=== PATIENT | female | born 1970 | race African-American/Black ===

== ENCOUNTER 2017-08-28 05:34 | Emergency (ER) | payer MEDICAID ==
[2014-08-11 05:34] VITALS: BMI 35.0
[~2017-08-28 05:34] MED LIST: BAYER CHEWABLE81 MG PO; COREG6.25 MG PO; GLUCOPHAGE500 MG PO; LIPITOR10 MG PO; LISINOPRIL10 MG PO; ZPAK PO
[2017-08-28 06:40] LABS: BASOPHILS 0.2 % (0-2); EOSINOPHILS 1.1 % (0-7); HEMATOCRIT 37.4 % (36.0-48.0); HEMOGLOBIN 12.5 g/dL (12-16); IMMATURE GRANULOCYTES 0.4 % (0-5); LYMPHOCYTES 34.3 % (15-50); MCH 29.5 pg (26.0-34.0); MCHC 33.4 g/dL (31.0-37.0); MCV 88.2 fL (80.0-100.0); MEAN PLATELET VOLUME 10.3 fL (7.4-10.4); MONOCYTES 6.5 % (2-11); NEUTROPHILS 57.5 % (40-80); PLATELET COUNT 239 10x3/uL (130-400); RBC 4.24 10x6/uL (4.00-5.40); RDW 12.9 % (11.5-14.5); WBC 4.8 10x3/uL (4.8-10.8)
[2017-08-28 07:00] LABS: ALBUMIN 3.8 g/dL (3.4-5.0); ALKALINE PHOSPHATASE 69 U/L (46-116); ALT (SGPT) 28 U/L (10-68); BILIRUBIN - TOTAL 0.53 mg/dL (0.2-1.3); CALC OSMOLALITY 281 mosm/kg (275-300); CALCIUM 9.6 mg/dL (8.5-10.1); CARBON DIOXIDE 25.5 mmol/L (21.0-32.0); CHLORIDE - SERUM 100 mmol/L (98-107); CREATININE - SERUM 0.9 mg/dL (0.6-1.3); GLUCOSE 193 mg/dL (74-106); PROTEIN - SERUM 8.5 g/dL (6.4-8.2); SODIUM 138 mmol/L (136-145); UREA NITROGEN 15 mg/dL (7-18); eGFR NON AFRICAN AMERICAN 71 mL/min (90-120)
[2017-08-28 07:10] LABS: CKMB 1.3 U/L (0.0-3.6); CREATINE KINASE 141 UL (21-215); PRO BNP 876 pg/mL (0-125)
[2017-08-28 07:11] LABS: TROPONIN-I < 0.017 ng/mL (0.000-0.060)
== END 2017-08-28 07:37 | disposition home or self-care (01) ==
LOC: D.ER 05:34
PROVIDERS: Family Medicine
DX: S29.012A Strain of muscle and tendon of back wall of thorax, initial encounter (principal); X58.XXXA Exposure to other specified factors, initial encounter; Y93.89 Activity, other specified; Y92.019 Unspecified place in single-family (private) house as the place of occurrence of the external cause; E87.6 Hypokalemia; R73.9 Hyperglycemia, unspecified; I10 Essential (primary) hypertension

== ENCOUNTER 2018-05-13 22:24 | Inpatient (IN) | payer BC ==
[~2018-05-13] VITALS: Ht 165.1 cm; Wt 95.0 kg
--- NOTE | ~2018-05-13 | OP ---
PATIENT NAME: CESAR ST MEDICAL RECORD: [id number] :70 [facility]ATION[facility] ADMISSION DATE:05/14/18 SURGEON: ALDEN MOBLEY MD DATE OF OPERATION: 05/14/2018 PROCEDURE: Left heart cath, LV gram, coronary angiogram, PTCA of the LAD, intra-arterial stenting of the LAD times 2. PROCEDURE IN DETAIL: The patient was brought to cardiac catheterization lab in stable condition. Both groins were sterilely prepped and draped. The patient had a 6-Bulgarian sheath placed in right common femoral artery using modified Seldinger technique. We then were able to selectively intubate the left coronary artery, the right coronary artery, and the left ventricular cavity. We were then able to get distal wire position to the LAD. We were then able to guide a 2.0 x 25 balloon into the mid LAD and pulled back into the proximal LAD, perform angioplasty times 2. Given continued residual stenosis greater than 50%, we then proceeded with a 2.25 x 30 stent and a 2.5 x 26 stent both drug-eluting into the mid going back into the proximal LAD, taken to a maximum rated burst pressures. We were then able to take a noncompliant 2.5 in to the mid LAD and taken to 17 atmospheres and show relief of the residual stenosis. FINDINGS: 1. Left main has a distal 50% stenosis. 2. The circumflex is a diffusely diseased, has an ostial 40% stenosis and at the takeoff of the terminal obtuse marginal branch, there is a 60% stenosis. The LAD itself is shown to have dissected portion in the proximal section associated with calcification and mild thrombus with 100% occlusion also of a diagonal branch in that vessel. There was, however, TIFF 3 flow in the LAD itself. 3. The RCA is a large, dominant vessel. The posterior descending artery has a mid 80% stenosis. ANGIOPLASTY: The patient underwent balloon angioplasty reducing the original 95% stenosis into a 50% residual stenosis status post stenting and post-stenting angioplasty that was reduced to 0% residual stenosis. However, there was continued occlusion of the diagonal vessel; however, given that the LAD had excellent results, the procedure was terminated successfully. HEMODYNAMICS: Left ventricular ejection fraction was shown to be a 70+%. End-diastolic pressure was normal at 15 mmHg. There was no significant mitral regurgitation. No gradient across the aortic valve. IMPRESSION: Severe 2-vessel coronary artery disease in the LAD distribution and moderate disease in both the posterolateral, posterior descending and the terminal obtuse marginal branch. The patient had preserved left ventricular systolic function despite coming in with fulminant congestive heart failure and her end-diastolic pressure at this point in time, is actually normal. RECOMMENDATION: The patient needs to continue with dual antiplatelet therapy in the form of aspirin and Brilinta. We will continue aggressive secondary risk factor modification, hypertensive control. We will follow her in the intensive care unit to try to extubate the patient as soon as she is medically stable for extubation. We will also check an echocardiogram in the morning. TRANSINT:[id number] Voice Confirmation ID: [id number] DOCUMENT ID: [id number] OPERATIVE REPORT [id number] CESAR ST,ALDEN Cooper MD at 1348 CC: [id number] DICTATION DATE: 05/14/18126 ENAMEL APPLIER: 05/14/18 0155 DIS IN 05/16/18 [place] [id number] [place] [address]
--- NOTE | ~2018-05-13 | EC ---
PATIENT:CESAR ST DATE OF SERVICE: 05/14/18 SEX: F MEDICAL RECORD: [id number] DATE OF : 70 LOCATION:[place] [address] AGE OF PATIENT: 48 ADMISSION DATE: 05/14/18 REFERRING PHYSICIAN: INTERPRETING PHYSICIAN: ALDEN MOBLEY MD ECHOCARDIOGRAM REPORT ECHO CHARGES 4 ECHO COMPLETE Date: 05/14/18 CLINICAL DIAGNOSIS: STEMI ECHOCARDIOGRAPHIC MEASUREMENTS (adult normal given) AC root (d.<3.7cm) 3.0 cm LV Septum d (<1.2 cm> 1.7 cm Valve Excursion 1.4 cm LV Septum (systole) 1.8 cm Left Atria (s.<4.0cm> 3.7 cm LVPW d(<1.2cm) 1.1 cm RV (d.<2.3cm) 2.2 cm LVPW (sytole) 1.1 cm LV diastole(<5.6CM) 4.9 cm MV E-F(>70mm/sec) cm LV systole 4.0 cm LVOT Diameter 1.6 cm MV exc.(>10mm) cm Est.ejection fraction (50-75%) % DOPPLER: LVIT cm/sec A 71 cm/sec E 47 cm/sec LA cm/sec RVSP 20.6 mmHg LVOT 89 cm/sec AOP1/2T m/s Asc. Ao 125 cm/sec RVOT 67 cm/sec RA cm/sec PA 94 cm/sec AV Gradient Peak 6.2 mmHg AV Mean 4.1 mmHg AV Area 1.7 cm MV Gradient Peak 2.8 mmHg MV Mean 1.5 mmHg MV Area cm COMMENTS: Pain Management Nurse Practitioner: Efraín CARPIO Jewelry Sales Associate: Latia Mobley TAPE# PACS Pericardial Effusion N DATE OF SERVICE: PROCEDURE: Transthoracic echocardiogram. FINDINGS: 1. Left ventricle was difficult to visualize. There appeared to be anterior to anterior lateral hypokinesis and regional wall motion abnormalities. The overall ejection fraction is 45%. The inflow characteristics are consistent with diastolic dysfunction or elevated left ventricular end-diastolic pressures. 2. The left atrium is normal. ECHOCARDIOGRAM REPORT [id number] CESAR ST 3. The aortic valve is normal. 4. The mitral valve is normal. 5. The tricuspid valve is normal. The RVSP is 20. 6. The right ventricle is normal. 7. The right atrium is normal. 8. The pulmonic valve is normal. CONCLUSIONS: The patient has evidence of hypertensive heart disease that is moderate in nature and diastolic dysfunction with regional wall motion abnormalities, ejection fraction of 45%. TRANSINT:[id number] Voice Confirmation ID: [id number] DOCUMENT ID: [id number] ALDEN MOBLEY MD at 1348 CC: [id number] DICTATION DATE: 05/14/181912 NET DEVELOPER PROGRAMMER: 05/15/18 0225 DIS IN 05/16/18 [facility] [address] [place] [address]
--- NOTE | ~2018-05-13 | HEMODYNAMI ---
PATIENT:ANGELES DAVID MEDICAL RECORD: [id number] : 70 LOCATION:[facility] ADMISSION DATE: 05/14/18 Generatedon:05/14/20181:28 Patient name: ANGELES ST Patient #: [id number] SSN: : 1970 Date of study: 05/14/2018 Page: Of Hemodynamic Procedure Report Patient Data Patient Demographics First Name: ANGELES Gender: Female Last Name: KALPANA ST : 1970 Middle Initial: MELLY Age: 48 year(s) Patient #: [id number] Race: Black Additional ID: [id number] Contact details Address: [address] [place] [address] State: [place] City: [facility] Zip code: [address] Admission Admission Data Admission Date: 05/14/2018 Admission Time: 1:12 Room #: D.CV03 Procedure Procedure Types Cath Procedure Diagnostic Procedure LHC LHC w/Coronaries PCI Procedure AMI/SVG/OIL RECOVERY UNIT OPERATOR PTCA or Stent AMI-BMS/TESFAYE Initial Procedure Description Procedure Date Procedure Date: 05/14/2018 Procedure Start Time: 0:52 Procedure End Time: 1:28 Procedure Staff Name Function Giovany Sanders MD Performing Physician Lorri Guthrie RT Monitor Francesco Piña RN Nurse Gely Granado RT Scrub Procedure Data Cath Procedure Fluoroscopy Diagnostic fluoroscopy Total fluoroscopy Time: 5.6 time: 5.6 min min Diagnostic fluoroscopy Total fluoroscopy dose: dose: 1426 mGy 1426 mGy Contrast Material Contrast Material Type Amount (ml) Isovue 300 130 Entry Location Entry Primary Successful Side Size Upsize Upsize Entry Closure Succes sful Closure Location (Fr) 1 (Fr) 2 (Fr) Remarks Device Remarks Femoral Right 6 Fr Sheath artery Short sutured in place Estimated blood loss: 10 ml Diagnostic catheters Device Type Used For End Catheter Placement MULTIPACK JL 4.0 5Fr Left Coronary catheter Angiography MULTIPACK 3DRC 5Fr Right Coronary catheter Angiography MULTIPACK Pigtail 5 Fr LV Angiography catheter Procedure Complications No complications Procedure Medications Medication Administration Route Dosage 0.9% NaCl I.V. 10 ml/hr Oxygen 15 l/min Heparin Flush Bag added to field 2 bags (1000units/500ml NS) Lidocaine 2% S.C. 20 Versed I.V. 1 mg Heparin Bolus I.V. 3000 units Diprivan 1% 62.5 mcg/kg/min (Propofol) Heparin Drip 1100 units/hr (81800iwfrr/250 D5W) Versed I.V. 1 mg Heparin Drip 1100 units/hr (16868kridi/250 D5W) Heparin Drip I.V. drip 900 units/hr (12777yjgym/250 D5W) Hemodynamics Rest Heart Rate: 93 (bpm) Pressure Samples Time Site Value (mmHg) Purpose Heart Use Rate(bpm) 1:01 LV 107/-5,10 EDP 90 Gradients Valve Time Site Site Mean SEP/DFP Peak To Heart Use 1 2 (mmHg) (sec/min) Peak Rate (mmHg) (bpm) Aortic 1:01 LV AO 91 Snapshots Pre Cath Intra NCS Post Cath Vital Signs Time Heart Resp SPO2 etCO2 NIBP (mmHg) Rhythm Pain Sedation Rate (ipm) (%) (mmHg) Status Level (bpm) 0:50:28 94 17 100 0 120/82(105) NSR 0 (11) 5(A) , No pain 0:55:08 93 17 100 0 119/79(95) NSR 0 (11) 5(A) , No pain 0:59:47 90 16 100 0 117/72(90) NSR 0 (11) 5(A) , No pain 1:04:25 90 16 100 0 115/77(92) NSR 0 (11) 5(A) , No pain 1:09:04 89 16 100 0 106/66(84) NSR 0 (11) 5(A) , No pain 1:13:40 88 16 100 0 106/73(85) NSR 0 (11) 5(A) , No pain 1:18:17 88 16 100 0 110/79(92) NSR 0 (11) 5(A) , No pain 1:22:53 87 16 100 0 123/84(105) NSR 0 (11) 5(A) , No pain 1:27:31 87 16 100 0 132/93(111) NSR 0 (11) 5(A) , No pain Medications Time Medication Route Dose Verified Delivered Reason Notes Effectiveness by by 0:49:45 0.9% NaCl I.V. 10 ml/hr Giovany Francesco Per phys roslyn Piña MD, RN 0:50:30 Oxygen oett 15 l/min Giovany Francesco Per phys roslyn Piña MD, RN 0:50:44 Heparin Flush added to 2 bags Francesco Francesco used for Bag field Lorigan Ayana procedure (1000units/500ml RN RN NS) 0:50:56 Lidocaine 2% S.C. 20ml vial Francesco Francesco for loca l Lorigan Lormaria de jesus anesthetic RN RN 0:51:27 Diprivan 1% I.V.infusing 62.5mcg/kg/min Francesco Francesco for zohreh tion (Propofol) upon arrival Ayana Piña RN RN 0:52:00 Heparin Drip I.V. drip 1,100 units/hr Francesco Francesco for (70232ioynt/250 infusing Lorigan Lorigan anticoagulation D5W) upon arrival RN RN 0:52:39 Versed I.V. 1 mg Francesco Francesco for zohreh tion Ayana Piña RN RN 1:04:21 Heparin Drip stopped 1,100 units/hr Francesco Francesco for (23955vrhal/250 Lorigan Lorigan anticoagulation D5W) RN RN 1:04:37 Heparin Bolus I.V. 3,000 units Francesco Francesco for Lorigan Lorigan anticoagulation RN RN 1:14:42 Versed I.V. 1 mg Francesco Francesco for zohreh tion Ayana Piña RN RN 1:20:36 Heparin Drip I.V. drip 900units/hr Francesco Francesco for (30495kecmn/250 Lorigan Lorigan anticoagulation D5W) RN promos executive producer Log Time Note 0:31:13 Time tracking: Call back (After hours or weekends) 0:31:17 Plan of Care:Hemodynamics will remain stable., Cardiac rhythm will remain stable., Comfort level will be maintained., Respiratory function will remain adequate., Patient/ family verbilizes understanding of procedure., Procedure tolerated without complication., Recovers from procedure without complications.. 0:31:26 Francesco Piña RN sent for patient. Start room use. 0:49:36 Vital chart was started 0:49:40 Patient received from ED to CCL 1 Alert and oriented. Tansferred to table in Supine position. 0:49:45 0.9% NaCl 10 ml/hr I.V. was administered by Francesco Piña RN; Per physician; 0:50:26 Correct patient and procedure confirmed by team. 0:50:30 Oxygen 15 l/min oett was administered by Francesco Piña RN; Per physician; 0:50:44 Heparin Flush Bag (1000units/500ml NS) 2 bags added to field was administered by Francesco Piña RN; used for procedure; 0:50:56 Lidocaine 2% 20ml vial S.C. was administered by Francesco Piña RN; for local anesthetic; 0:51:27 Diprivan 1% (Propofol) 62.5mcg/kg/min I.V.infusing upon arrival was administered by Francesco Piña RN; for sedation; 0:51:30 Baseline sample Acquired. 0:51:48 PATIENT ON VENT 0:51:51 Final Timeout: patient, procedure, and site verified with staff and physician. All members of the team are in agreement. 0:51:53 Right groin site verified by team. 0:51:55 Physical assessment completed. ASA score P 4 - A patient with severe systemic disease that is a constant threat to life as per Giovany Sanders MD. 0:51:59 Sedation plan: IV Moderate Sedation Medication:Versed, Fentanyl 0:52:00 Heparin Drip (26514ztooz/250 D5W) 1,100 units/hr I.V. drip infusing upon arrival was administered by Francesco Piña RN; for anticoagulation; 0:52:07 Procedure started. 0:52:07 Full Disclosure recording started 0:52:11 Local anesthetic to right femoral artery with Lidocaine 2% by Giovany Sanders MD.INITIAL ACCESS ONLY 0:52:39 Versed 1 mg I.V. was administered by Francesco Piña RN; for sedation; 0:54:12 A 6 Fr Short sheath was inserted into the Right Femoral artery 0:54:40 Use device set Femoral Dx 0:54:41 ACIST Syringe (81090) opened to sterile field. 0:54:41 Bag Decanter (2002S) opened to sterile field. 0:54:42 Medline Cath Pack ([id number]) opened to sterile field. 0:54:42 DIAGNOSTIC WIRE .035 260cm J wire (938131) opened to sterile field. 0:54:43 ACIST Hand Control (23990) opened to sterile field. 0:54:44 ACIST Manifold (24540) opened to sterile field. 0:54:45 DIAGNOSTIC Multipack 5Fr catheter set (KP1759) opened to sterile field. 0:54:46 Tegaderm 4 x 4 (1626W) opened to sterile field. 0:54:47 SHEATH Prelude 5Fr 0.035 (NNI-1Z-96-035) opened to sterile field. 0:55:12 SHEATH 6Fr Prelude Radial ([id number]) opened to sterile field. 0:55:29 A MULTIPACK JL 4.0 5Fr catheter was advanced over the wire and used for Left Coronary Angiography. 0:56:33 Catheter removed. 0:56:47 A MULTIPACK 3DRC 5Fr catheter was advanced over the wire and used for Right Coronary Angiography. 1:00:38 Catheter removed. 1:00:42 A MULTIPACK Pigtail 5 Fr catheter was advanced over the wire and used for LV Angiography. 1:01:44 Catheter removed. 1:02:00 Use device set NORRED PCI 1:02:03 INFLATOR Merit BasixCompak (KB6334) opened to sterile field. 1:02:04 COPILOT Valve Control (2886792) opened to sterile field. 1:02:05 BMW 190cm [place] 2 J wire (6759861I) opened to sterile field. 1:02:08 GUIDE 6FR XBLAD 3.5 catheter (75373583) opened to sterile field. 1:04:05 MICROPUNCTURE 4FR Cook (L46636) opened to sterile field. 1:04:19 6 Fr XBLAD 3.5 guide catheter was inserted over the wire 1:04:21 Heparin Drip (36549elzxn/250 D5W) 1,100 units/hr stopped was administered by Francesco Piña RN; for anticoagulation; 1:04:37 Heparin Bolus 3,000 units I.V. was administered by Francesco Piña RN; for anticoagulation; 1:04:53 BMW wire advanced. 1:07:39 Inflate balloon Inflation number: 1 A EUPHORA 2.0 x 25 Balloon ([id number]) was prepped and advanced across the Prox LAD, then inflated to 12 RIGOBERTO for 0:17 (min:sec). 1:07:52 Inflation number: 2 The EUPHORA 2.0 x 25 Balloon ([id number]) was reinflated across the Prox LAD, to 12 RIGOBERTO for 0:09 (min:sec). 1:08:04 Balloon removed over the wire. 1:10:29 Place stent Inflation Number: 3 A OPAL RX 2.25 x 30 stent ([id number]) was prepped and advanced across the Prox LAD. The stent was deployed at 14 RIGOBERTO for 0:18 (min:sec). 1:10:35 Stent catheter was removed intact over wire. 1:14:14 Place stent Inflation Number: 4 A OPAL RX 2.5 x 26 stent ([id number]) was prepped and advanced across the Prox LAD. The stent was deployed at 14 RIGOBERTO for 0:22 (min:sec). 1:14:42 Versed 1 mg I.V. was administered by Francesco Piña RN; for sedation; 1:17:47 Inflate balloon Inflation number: 5 A NC EUPHORA 2.5 x 12 balloon ([id number]) was prepped and advanced across the Prox LAD, then inflated to 17 RIGOBERTO for 0:44 (min:sec). 1:18:09 Balloon removed over the wire. 1:19:13 Wire removed. 1:19:13 Guide catheter removed. 1:20:20 Sheath removed intact; hemostasis achieved with Sheath sutured in place to the Right Femoral artery. 1:20:22 Procedure ended.(Physican Out) 1:20:36 Heparin Drip (99337sktvd/250 D5W) 900units/hr I.V. drip was administered by Francesco Piña RN; for anticoagulation; 1:26:37 ART Line (PX260) opened to sterile field. 1::44 Fluoroscopy time 05.60 minutes. 1:26:48 Flurop Dose total: 1426 1:26:48 Fluoroscopy dose: 1426 mGy 1:26:57 Contrast amount:Isovue 300 130ml. 1::58 Sharps counted by scrub and verified by R.N. 1:27:00 Insertion/operative site no bleeding no hematoma. 1:27:03 Post-op/insertion site Right Femoral artery dressed using a 4 x 4 and Tegaderm. 1:27:06 Post right femoral artery:stable, clean and dry 1:27:09 Post Procedure Pulses reassessed and unchanged 1:27:17 Post-procedure physical assessment completed. ASA score P 4 - A patient with severe systemic disease that is a constant threat to life as per Giovany Sanders MD. 1:27:27 Post procedure rhythm: unchanged. 1:27:31 Estimated blood loss: 10 ml 1:27:32 Post procedure instruction explained to patient.Patient verbalizes understanding. 1:27:33 Patient needs reinforcement of post procedure teaching. 1:27:42 Procedure type changed to Cath procedure, Diagnostic procedure, LHC, LHC w/Coronaries, PCI procedure, AMI/SVG/OIL RECOVERY UNIT OPERATOR PTCA or Stent, AMI-BMS/TESFAYE Initial 1:28:05 Procedure and supply charges have been captured, reviewed, submitted and are correct. 1:28:09 Procedure Complication : No complications 1:28:10 Vital chart was stopped 1:28:11 See physician's report for complete and final results. 1:28:13 Report given to CVICU. 1:28:17 Patient transfered to CVICU with Bed. 1:28:38 Procedure ended. 1:28:38 Full Disclosure recording stopped 1:28:42 End room use (Document Last) Intervention Summary Intervention Notes Time ActionType Lesion and Equipment Used Action# Pressure Duration Attributes 1:07:39 Inflate Prox LAD EUPHORA 2.0 x 1 12 00:17 balloon 25 Balloon ([id number]) 1:07:52 Reinflate Prox LAD EUPHORA 2.0 x 2 12 00:09 balloon 25 Balloon ([id number]) 1:10:29 Place stent Prox LAD OPAL RX 2.25 x 3 14 00:18 30 stent ([id number]) 1:14:14 Place stent Prox LAD POAL RX 2.5 x 4 14 00:23 26 stent ([id number]) 1:17:47 Inflate Prox LAD NC EUPHORA 2.5 5 17 00:44 balloon x 12 balloon ([id number]) Device Usage Item Name Manufacture Quantity Catalog Number Hospital Part Current Minimal Lot# / Charge Number Stock Stock Serial# Code ACIST Syringe Acist 1 31396 316980 833026 [id number] 20 (22474) Medical Systems Inc Bag Decanter Microtek 1 634989 44834 057874 5 () Medical Inc. Medline Cath Cardinal 1 [id number] 409761 44215 415284 5 Pack Health ([id number]) DIAGNOSTIC WIRE [facility] 1 910452 091287 037077 826711 30 .035 260cm J wire (760591) ACIST Hand Acist 1 66660 997760 244606 494389 5 Control (04957) Medical Systems Inc ACIST Manifold Acist 1 08971 663455 313443 784309 5 (23585) Medical Systems Inc DIAGNOSTIC Cardinal 1 DN0381 037310 33502 234888 30 Multipack 5Fr Health catheter set (RL8539) Tegaderm 4 x 4 3M 1 1626W 048610 869203 688940 5 (1626W) SHEATH Prelude Merit 1 HNP-4A-91-035 900770 266078 508428 5 5Fr 0.035 Medical (EAY-7F-17-035) SHEATH 6Fr Merit 1 [id number] 622250 788626 225972 5 Prelude Radial Medical ([id number]) MULTIPACK JL Cardinal 1 223111 5 4.0 5Fr Health catheter MULTIPACK 3DRC Cardinal 1 866437 5 5Fr catheter Health MULTIPACK Cardinal 1 967568 5 Pigtail 5 Fr Health catheter INFLATOR Merit Merit 1 RF7822 845555 768076 117465 15 [facility] (VA2510) COPILOT Valve Sahni 1 9856120 933705 063163 492485 5 Control Vascular (5983903) BMW 190cm Sahni 1 [id number] 500134 83401 458279 5 [place] 2 J Vascular wire (0322847F) GUIDE 6FR XBLAD Cardinal 1 37830620 598270 556171 750272 10 3.5 catheter Health (14335674) MICROPUNCTURE Cook Medical 1 K17227 503301 409125 605808 5 4FR Dely (S45838) EUPHORA 2.0 x Medtronic 1 [id number] 957140 155306 009663 5 [id number] 25 Balloon ([id number]) OPAL RX 2.25 x Medtronic 1 [id number] 980274 6062892 887967 5 [id number] 30 stent ([id number]) OPAL RX 2.5 x Medtronic 1 [id number] 090369 5744727 948584 5 [id number] 26 stent ([id number]) NC EUPHORA 2.5 Medtronic 1 [id number] 024238 727399 616275 1 [id number] x 12 balloon ([id number]) ART Line Penn 1 PX260 992596 60400 929788 5 (PX260) Lifesciences Signature Audit [place] Stage Time Signature Unsigned Intra-Procedure 05/14/2018 Lorri 1:28:54 AM Counts RT(R) Signatures Monitor : Lorri Signature : Counts RT Date : Time : [place] [id number] [place] [address]
[2018-05-13 22:47] LABS: BASOPHILS 0.2 % (0-2); EOSINOPHILS 0.7 % (0-7); HEMATOCRIT 41.9 % (36.0-48.0); HEMOGLOBIN 13.4 g/dL (12-16); IMMATURE GRANULOCYTES 0.6 % (0-5); LYMPHOCYTES 41.7 % (15-50); MCH 28.9 pg (26.0-34.0); MCV 90.3 fL (80.0-100.0); MONOCYTES 7.1 % (2-11); NEUTROPHILS 49.7 % (40-80); RBC 4.64 10x6/uL (4.00-5.40); RDW 13.9 % (11.5-14.5); WBC 12.5 10x3/uL (4.8-10.8)
[2018-05-13 22:50] LABS: PLATELET COUNT 306 10x3/uL (130-400)
[2018-05-13 22:53] LABS: INR 0.97 (0.85-1.17); PROTIME 12.5 SECONDS (11.6-15.0)
[2018-05-13 23:01] LABS: ALBUMIN 3.5 g/dL (3.4-5.0); ALKALINE PHOSPHATASE 80 U/L (46-116); ALT (SGPT) 21 U/L (10-68); BILIRUBIN - TOTAL 0.43 mg/dL (0.2-1.3); CALCIUM 9.2 mg/dL (8.5-10.1); CARBON DIOXIDE 20.3 mmol/L (21.0-32.0); CHLORIDE - SERUM 99 mmol/L (98-107); CREATININE - SERUM 1.4 mg/dL (0.6-1.3); PROTEIN - SERUM 9.2 g/dL (6.4-8.2); SODIUM 136 mmol/L (136-145); UREA NITROGEN 13 mg/dL (7-18); eGFR NON AFRICAN AMERICAN 42 mL/min (90-120)
[2018-05-13 23:11] LABS: CALC OSMOLALITY 283 mosm/kg (275-300); GLUCOSE 312 mg/dL (74-106)
[2018-05-13 23:12] LABS: CKMB 1.9 U/L (0.0-3.6); CREATINE KINASE 164 UL (21-215); PRO BNP 1187 pg/mL (0-125)
[2018-05-13 23:17] LABS: POTASSIUM - SERUM 2.9 mmol/L (3.5-5.1)
[2018-05-13 23:35] LABS: TROPONIN-I 0.026 ng/mL (0.000-0.060)
[2018-05-13 23:43] LABS: APTT 24.6 SECONDS (22.8-39.4); INR 0.97 (0.85-1.17); PROTIME 12.5 SECONDS (11.6-15.0)
[2018-05-13 23:44] LABS: D-DIMER-QUANTITATIVE 3.58 ug/mLFEU (0.20-0.54)
[2018-05-13 23:45] LABS: APPEARANCE HAZY (CLEAR); BILIRUBIN NEGATIVE (NEGATIVE); COLOR YELLOW (YELLOW); GLUCOSE 500 mg/dL (NEGATIVE); KETONE NEGATIVE (NEGATIVE); NITRITE NEGATIVE (NEGATIVE); PROTEIN 2+ mg/dL (NEGATIVE); UROBILINOGEN NORMAL (NORMAL); WHITE CELLS - URINE 0-5 /hpf (0-5)
[2018-05-13 23:46] LABS: BACTERIA NONE SEEN /hpf (NONE SEEN); EPITHELIAL CELLS NSEEN /hpf (0-5)
[2018-05-13 23:57] LABS: UDS - AMPHET NEGATIVE QUAL (NEGATIVE); UDS - BARB NEGATIVE QUAL (NEGATIVE); UDS - BENZO NEGATIVE QUAL (NEGATIVE); UDS - COCAINE NEGATIVE QUAL (NEGATIVE); UDS - OPIATE NEGATIVE QUAL (NEGATIVE); UDS - PCP NEGATIVE QUAL (NEGATIVE); UDS - THC NEGATIVE QUAL (NEGATIVE)
[2018-05-14] VITALS (21 sets, daily range): BP systolic 113–180; BP diastolic 68–105; BMI 34.1
[2018-05-14 00:59] LABS: CALCIUM 8.2 mg/dL (8.5-10.1); CARBON DIOXIDE 21.8 mmol/L (21.0-32.0); CREATININE - SERUM 1.4 mg/dL (0.6-1.3)
[2018-05-14 01:05] LABS: POTASSIUM - SERUM 3.8 mmol/L (3.5-5.1)
[2018-05-14 03:36] LABS: CKMB 82.6 U/L (0.0-3.6)
[2018-05-14 03:37] LABS: CREATINE KINASE 701 UL (21-215)
[2018-05-14 03:39] LABS: TROPONIN-I 14.358 ng/mL (0.000-0.060)
[2018-05-14 07:16] LABS: CKMB 184.5 U/L (0.0-3.6)
[2018-05-14 07:24] LABS: CREATINE KINASE 1478 UL (21-215); TROPONIN-I 32.876 ng/mL (0.000-0.060)
[2018-05-14 07:30] LABS: PROTIME 14.5 SECONDS (11.6-15.0)
[2018-05-14 07:35] LABS: INR 1.18 (0.85-1.17)
[2018-05-14 07:36] LABS: APTT 175.3 SECONDS (22.8-39.4)
[2018-05-14 07:53] LABS: BASOPHILS 0 % (0-2); EOSINOPHILS 0 % (0-7); HEMATOCRIT 35.4 % (36.0-48.0); HEMOGLOBIN 11.8 g/dL (12-16); IMMATURE GRANULOCYTES 0.2 % (0-5); LYMPHOCYTES 1.9 % (15-50); MCH 28.6 pg (26.0-34.0); MCHC 33.3 g/dL (31.0-37.0); MCV 85.9 fL (80.0-100.0); MEAN PLATELET VOLUME 10.8 fL (7.4-10.4); MONOCYTES 5.3 % (2-11); NEUTROPHILS 92.6 % (40-80); PLATELET COUNT 252 10x3/uL (130-400); RBC 4.12 10x6/uL (4.00-5.40); WBC 14.6 10x3/uL (4.8-10.8)
[2018-05-14 08:32] LABS: ALBUMIN 2.7 g/dL (3.4-5.0); ALKALINE PHOSPHATASE 59 U/L (46-116); ALT (SGPT) 38 U/L (10-68); BILIRUBIN - TOTAL 0.52 mg/dL (0.2-1.3); CALC OSMOLALITY 279 mosm/kg (275-300); CALCIUM 8.1 mg/dL (8.5-10.1); CHLORIDE - SERUM 100 mmol/L (98-107); CREATININE - SERUM 1.4 mg/dL (0.6-1.3); GLUCOSE 289 mg/dL (74-106); POTASSIUM - SERUM 3.6 mmol/L (3.5-5.1); PROTEIN - SERUM 7.2 g/dL (6.4-8.2); SODIUM 134 mmol/L (136-145); UREA NITROGEN 16 mg/dL (7-18); eGFR NON AFRICAN AMERICAN 42 mL/min (90-120)
[2018-05-14 12:35] LABS: CREATININE - URINE 184.1 mg/dL (30-125); INR 1.13 (0.85-1.17); PROTEIN - URINE 53.3 mg/dL (0.0-11.9); PROTIME 14.1 SECONDS (11.6-15.0)
[2018-05-14 12:36] LABS: APTT 77.8 SECONDS (22.8-39.4)
[2018-05-14 14:32] LABS: CKMB 367.3 U/L (0.0-3.6); CREATINE KINASE 3072 UL (21-215)
[2018-05-14 14:53] LABS: TROPONIN-I 154.239 ng/mL (0.000-0.060)
[2018-05-15] VITALS (23 sets, daily range): BP systolic 133–212; BP diastolic 75–116
[2018-05-15 04:47] LABS: BASOPHILS 0 % (0-2); EOSINOPHILS 0 % (0-7); HEMATOCRIT 29.6 % (36.0-48.0); HEMOGLOBIN 9.8 g/dL (12-16); IMMATURE GRANULOCYTES 0.3 % (0-5); LYMPHOCYTES 7.2 % (15-50); MCH 28.2 pg (26.0-34.0); MCHC 33.1 g/dL (31.0-37.0); MCV 85.3 fL (80.0-100.0); MEAN PLATELET VOLUME 10.2 fL (7.4-10.4); NEUTROPHILS 85.5 % (40-80); RBC 3.47 10x6/uL (4.00-5.40); RDW 14.2 % (11.5-14.5); WBC 14.6 10x3/uL (4.8-10.8)
[2018-05-15 04:49] LABS: PLATELET COUNT 192 10x3/uL (130-400)
[2018-05-15 05:04] LABS: ALBUMIN 2.5 g/dL (3.4-5.0); ANION GAP 10.9 mmol/L (8-16); BILIRUBIN - TOTAL 0.82 mg/dL (0.2-1.3); CALCIUM 8.2 mg/dL (8.5-10.1); CARBON DIOXIDE 27.5 mmol/L (21.0-32.0); CREATININE - SERUM 1.1 mg/dL (0.6-1.3); MAGNESIUM - SERUM 1.7 mg/dL (1.8-2.4); PHOSPHOROUS 4.4 mg/dL (2.5-4.9); POTASSIUM - SERUM 3.4 mmol/L (3.5-5.1); PROTEIN - SERUM 6.6 g/dL (6.4-8.2)
[2018-05-16] VITALS (31 sets, daily range): BP systolic 102–153; BP diastolic 63–88; Ht 165.1 cm; Wt 95.0 kg
[2018-05-16 07:19] LABS: T4 THYROXINE 7.9 ug/dL (4.7-13.3); THYROID STIMULATING HORMONE 0.8 uIU/mL (0.36-3.74)
[2018-05-16 09:13] LABS: BASOPHILS 0 % (0-2); EOSINOPHILS 0.2 % (0-7); HEMOGLOBIN 9.2 g/dL (12-16); IMMATURE GRANULOCYTES 0.3 % (0-5); LYMPHOCYTES 6.7 % (15-50); MCH 27.8 pg (26.0-34.0); MCHC 31.7 g/dL (31.0-37.0); MEAN PLATELET VOLUME 10.6 fL (7.4-10.4); MONOCYTES 7.3 % (2-11); NEUTROPHILS 85.5 % (40-80); PLATELET COUNT 208 10x3/uL (130-400); RBC 3.31 10x6/uL (4.00-5.40); RDW 14.2 % (11.5-14.5); WBC 13.4 10x3/uL (4.8-10.8)
[2018-05-16 09:14] LABS: MCV 87.6 fL (80.0-100.0)
[2018-05-16 09:29] LABS: ALBUMIN 2.6 g/dL (3.4-5.0); ANION GAP 9.6 mmol/L (8-16); BILIRUBIN - TOTAL 0.94 mg/dL (0.2-1.3); CALCIUM 8.6 mg/dL (8.5-10.1); CARBON DIOXIDE 29.4 mmol/L (21.0-32.0); CREATININE - SERUM 0.9 mg/dL (0.6-1.3)
[2018-05-16] MEDS ORDERED: AUGMENTIN 875-11 TAB PO (14:42)
[2018-05-16] MEDS ORDERED: PLAVIX75 MG PO (15:40)
[2018-05-16] MEDS ORDERED: METOPROLOL TART50 MG PO (15:40)
[2018-05-16] MEDS ORDERED: BAYER CHEWABLE81 MG PO (15:40)
[2018-05-16] MEDS ORDERED: PRINIVIL20 MG PO (15:41)
[2018-05-16] MEDS ORDERED: LIPITOR80 MG PO (15:41)
== END 2018-05-16 18:04 | disposition home or self-care (01) | DRG 981 ==
LOC: D.ER 22:24 → D.CVICU 05-14 01:12
PROVIDERS: Family Medicine; Internal Medicine Cardiovascular Disease; Internal Medicine Nephrology
PROC: B2151ZZ Fluoroscopy of Left Heart using Low Osmolar Contrast (ICD-10-PCS; 2018-05-14)
PROC: 4A023N7 Measurement of Cardiac Sampling and Pressure, Left Heart, Percutaneous Approach (ICD-10-PCS; 2018-05-14)
PROC: 5A1945Z Respiratory Ventilation, 24-96 Consecutive Hours (ICD-10-PCS; 2018-05-14)
PROC: 0BH17EZ Insertion of Endotracheal Airway into Trachea, Via Natural or Artificial Opening (ICD-10-PCS; 2018-05-14)
PROC: 027035Z Dilation of Coronary Artery, One Artery with Two Drug-eluting Intraluminal Devices, Percutaneous Approach (ICD-10-PCS; principal; 2018-05-14 00:31)
PROC: B2111ZZ Fluoroscopy of Multiple Coronary Arteries using Low Osmolar Contrast (ICD-10-PCS; 2018-05-14 00:31)
DX: J96.01 Acute respiratory failure with hypoxia (principal); I21.3 ST elevation (STEMI) myocardial infarction of unspecified site; I50.31 Acute diastolic (congestive) heart failure; I25.42 Coronary artery dissection; I13.0 Hypertensive heart and chronic kidney disease with heart failure and stage 1 through stage 4 chronic kidney disease, or unspecified chronic kidney disease; N17.9 Acute kidney failure, unspecified; I16.9 Hypertensive crisis, unspecified; N18.9 Chronic kidney disease, unspecified; E11.22 Type 2 diabetes mellitus with diabetic chronic kidney disease; K21.9 Gastro-esophageal reflux disease without esophagitis; D64.9 Anemia, unspecified; E66.01 Morbid (severe) obesity due to excess calories; Z68.34 Body mass index [BMI] 34.0-34.9, adult; E78.5 Hyperlipidemia, unspecified

== ENCOUNTER → 2018-05-18 09:30 | Outpatient (CLI) | payer SELFPAY ==
[2018-05-16 14:49] VITALS: BMI 34.8
[~2018-05-18 09:30] MED LIST changes: +AUGMENTIN 875-11 TAB PO; +COREG 3.1253.125 MG PO; +EFFIENT10 MG PO; +FUROSEMIDE20 MG PO; +K-TAB10 MEQ PO; +LIPITOR80 MG PO; +METOPROLOL TART50 MG PO; +NIFEDIPINE60 MG/BOTT PO; +PLAVIX75 MG PO; +PRINIVIL20 MG PO; +Procardia XL PO
== END | disposition home or self-care (01) ==
LOC: D.RAD 09:30
DX: I21.9 Acute myocardial infarction, unspecified (principal); J96.90 Respiratory failure, unspecified, unspecified whether with hypoxia or hypercapnia

== ENCOUNTER → 2018-05-26 16:38 | Outpatient (CLI) | payer SELFPAY ==
[2018-05-16 14:49] VITALS: BMI 34.8
[2018-05-26 17:45] LABS: CHOL - HDL RATIO 2.1 ratio (2.3-4.1)
== END | disposition home or self-care (01) ==
LOC: D.LABREF 16:38
PROVIDERS: Internal Medicine Cardiovascular Disease
DX: E78.5 Hyperlipidemia, unspecified (principal)

== ENCOUNTER 2018-05-29 02:42 | Inpatient (IN) | payer OTHER ==
[2018-05-29] VITALS (79 sets, daily range): BP systolic 105–224; BP diastolic 60–148; BMI 35.2
[~2018-05-29] VITALS: Ht 165.1 cm; Wt 91.8 kg
--- NOTE | ~2018-05-29 | MORECARE ---
CASE MANAGEMENT DISCHARGE SUMMARY PATIENT: CESAR ST UNIT: [id number] ADM DATE: 05/29/18 AGE: 48 : [birth year] SEX: F ROOM/BED: D.8082 AUTHOR: LACHO,DOC PHYSICIAN: REFERRING PHYSICIAN: LILLI ÁLVAREZ MD DATE OF SERVICE: 06/06/18 Discharge Plan Patient Name: CESAR ST Facility: [facility]:[place] : 1970 Planned Disposition: Home Anticipated Discharge Date: 06/03/18 Discharge Date: 06/03/2018 Expected LOS: 5 Initial Reviewer: [email or web address] Initial Review Date: 06/01/2018 Generated: 06/06/18 9:54 am Comments DCP- Discharge Planning Updated by [email or web address]: Monique Rudolph on 06/01/18 2:[address] Patient Name: CESAR ST Admission Status: ER Accout number: [id number] Admission Date: 05-29-2018 : 1970 Admission Diagnosis: Attending: LILLI ÁLVAREZ Current LOS: 3 Anticipated DC Date: Planned Disposition: Home Primary Insurance: [employer] Discharge Planning Comments: CM met with patient at bedside after obtaining verbal consent. Patient plans on returning to her home upon discharge. Patient denies any discharge needs at this time. CM will continue to follow and assist as needed with discharge planning / needs. Bucket Operator: Monique Rudolph Bucket Operator: Monique Rudolph DCPIA - Discharge Planning Initial Assessment Updated by [email or web address]: Monique Rudolph on 06/01/18 3:01 pm * Is the patient Alert and Oriented? Yes * How many steps to enter\exit or inside your home? * PCP [place] * Pharmacy [facility]. * Preadmission Environment Home Alone * ADLs Independent * Equipment None * Verbal permission to speak to the caregivers and representatives has been obtained from the patient. N/A * Community resources currently utilized None * Additional services required to return to the preadmission environment? No * Can the patient safely return to the preadmission environment? Yes * Has this patient been hospitalized within the prior 30 days at any hospital? No Last DP export: 06/01/18 2:06 Patient Name: CESAR ST Page 28722 at 0854 All edits/amendments must be made on the electronic document DICTATION DATE: 06/06/18852 CONTINUOUS IMPROVEMENT MANAGER: PEG 06/06/18852 RPT#: [id number] DC DATE:06/03/18 [facility]US[facility] [address] [place] [address] END OF REPORT
--- NOTE | ~2018-05-29 | HEMODYNAMI ---
PATIENT:CESAR ST MEDICAL RECORD: [id number] : 70 LOCATION:[place] D.CV02 ADMISSION DATE: 05/29/18 Generatedon:05/29/20184:32 Patient name: CESAR ST Patient #: [id number] SSN: D OB: 1970 Date of study: 05/29/2018 Page: Of Hemodynamic Procedure Report Patient Data Patient Demographics Procedure consent was obtained First Name: CESAR Gender: Female Last Name: MACIEL : 1970 Middle Initial: MELYL Age: 48 year(s) Patient #: [id number] Race: Black Additional ID: [id number] Contact details Address: [address] [place] [address] State: [place] City: [facility] [place] Zip code: [address] Admission Admission Data Admission Date: 05/29/2018 Admission Time: 4:07 Room #: D.CV02 Procedure Procedure Types Cath Procedure Diagnostic Procedure LHC LHC w/Coronaries PCI Procedure AMI/SVG/ONLINE JOURNALIST PTCA or Stent AMI-BMS/TESFAYE Initial Procedure Description Procedure Date Procedure Date: 05/29/2018 Procedure Start Time: 4:04 Procedure End Time: 4:31 Procedure Staff Name Function Charles Martin MD Performing Physician Lorri Guthrie RT Monitor Patricia Crabtree RN Nurse Don Rawls RT Scrub Procedure Data Cath Procedure Fluoroscopy Diagnostic fluoroscopy Total fluoroscopy Time: 3.6 time: 3.6 min min Diagnostic fluoroscopy Total fluoroscopy dose: 715 dose: 715 mGy mGy Contrast Material Contrast Material Type Amount (ml) Isovue 300 87 Entry Location Entry Primary Successful Side Size Upsize Upsize Entry Closure Succes sful Closure Location (Fr) 1 (Fr) 2 (Fr) Remarks Device Remarks Femoral Right 6 Fr Exoseal artery Short Femoral Right 5 Fr FOR IV Sheath FOR IV vein ACCESS sutured ACCESS in place Estimated blood loss: 10 ml Diagnostic catheters Device Type Used For End Catheter Placement MULTIPACK 3DRC 5Fr Right Coronary catheter Angiography MULTIPACK Pigtail 5 Fr LV Angiography catheter Procedure Complications No complications Procedure Medications Medication Administration Route Dosage Oxygen 16 l/min Lidocaine 2% added to field 20 Heparin Flush Bag added to field 2 bags (1000units/500ml NS) 0.9% NaCl I.V. Diprivan 1% I.V. 10 mcg/kg/min (Propofol) Heparin Bolus I.V. 7000 units Diprivan 1% I.V. 20 mcg/kg/min (Propofol) Integrilin (Bolus I.V. 6.2 ml 2mg/ml) Integrilin Drip 5.4 ml/hr (75mg/100ml) Nitro (50mg/250 D5W) I.V. drip 5 mcg/min Diprivan 1% I.V. 30 mcg/kg/min (Propofol) Hemodynamics Rest Heart Rate: 101 (bpm) Pressure Samples Time Site Value (mmHg) Purpose Heart Use Rate(bpm) 4:18 LV 183/13,47 Snapshot 111 4:19 AO 184/110(143) Pullback 109 4:19 LV 178/14,45 Pullback 109 Gradients Valve Time Site 1 Site 2 Mean SEP/DFP Peak To Heart Use (mmHg) (sec/min) Peak Rate (mmHg) (bpm) Aortic 4:18 LV AO 81 Aortic 4:19 LV AO 0 9 0 109 178/14,45 184/110(143) Calculations Valve P-P Mean Valve Index Valve Source Name Gradient Area Flow (cm2) Aortic 0 0 0 0 Snapshots Pre Cath Intra NCS Post Cath Vital Signs Time Heart Resp SPO2 etCO2 NIBP (mmHg) Rhythm Pain Sedation Rate (ipm) (%) (mmHg) Status Level (bpm) 3:59:22 101 34 100 0 176/115(148) NSR 0 (11) 8(A) , No pain 4:04:22 118 31 100 0 Measuring NSR 0 (11) 8(A) , No pain 4:05:17 111 41 100 0 182/119(153) NSR 0 (11) 8(A) , No pain 4:09:53 105 16 100 0 179/115(154) NSR 0 (11) 8(A) , No pain 4:14:30 102 25 100 0 171/115(146) NSR 0 (11) 8(A) , No pain 4:19:29 108 30 100 0 Measuring NSR 0 (11) 8(A) , No pain 4:19:54 108 20 100 0 168/115(149) NSR 0 (11) 8(A) , No pain 4:24:24 100 18 100 0 168/109(144) NSR 0 (11) 8(A) , No pain 4:28:25 98 30 100 0 169/106(137) NSR 0 (11) 8(A) , No pain Medications Time Medication Route Dose Verified Delivered Reason Notes Effectiveness by by 4:00:06 Oxygen intubated 16 l/min Charles Charles Per physician via et Sourav Martin MD tube 4:00:14 Lidocaine 2% added to 20ml vial Charles Charles used for field Sourav Martin MD procedure 4:00:30 Heparin Flush added to 2 bags Charles Charles Per physician Bag field Sourav Martin MD (1000units/500ml NS) 4:00:39 0.9% NaCl I.V. kvo ml/hr Charles Buffie Per physician Sourav Crabtree RN 4:03:28 Diprivan 1% I.V. 10 Charles Buffie Per physician (Propofol) mcg/kg/min Sourav Crabtree RN 4:10:07 Heparin Bolus I.V. 7000 units Charles Buffie for verified Sourav Crabtree RN anticoagulation with dr martin 4:11:48 Diprivan 1% I.V. 20 Charles Buffie Per physician (Propofol) mcg/kg/min Sourav Crabtree RN 4:14:29 Integrilin I.V. 6.2 ml Charles Buffie for wasted (Bolus 2mg/ml) Sourav Crabtree RN antiplatelet 3.8 ml therapy of vial 4:19:41 Integrilin Drip I.V. 5.4 ml/hr Charles Buffie Per physician (75mg/100ml) drip-renal Sourav Crabtree RN dose 4:27:45 Nitro (50mg/250 I.V. drip 5 mcg/min Charles Buffie Per physician for pul. D5W) Sourav Crabtree RN htn. 4:29:05 Diprivan 1% I.V. 30 Charles Buffie Per physician (Propofol) mcg/kg/min Sourav Crabtree RN Procedure Log Time Note 3:37:25 Time tracking: Regular hours (M-F 7:00 - 5:00) 3:37:28 Plan of Care:Hemodynamics will remain stable., Cardiac rhythm will remain stable., Comfort level will be maintained., Respiratory function will remain adequate., Patient/ family verbilizes understanding of procedure., Procedure tolerated without complication., Recovers from procedure without complications.. 3:38:22 Patricia Crabtree RN sent for patient. Start room use. 3:49:21 Patient received from ED to CCL 1 Alert and oriented. Tansferred to table in Supine position. 3:49:22 Warm blankets applied, and nile hugger turned on for patient comfort. 3:49:23 Correct patient and procedure confirmed by team. 3:49:24 Signed procedure consent form obtained from patient. 3:49:25 ECG and BP/O2 sat monitors applied to patient. 3:49:27 Full Disclosure recording started 3:49:38 PATIENT ARRIVED ON VENT 3:58:00 Vital chart was started 3:58:14 Rhythm: sinus rhythm , w/ ST elevation 3:58:20 H&P Date Dictated: 05/29/2018 Emergent; H&P N/A. 3:58:21 Pre-procedure instructions explained to patient. 3:58:22 Pre-op teaching completed and patient verbalized understanding. 3:58:25 Family in waiting room. 3:58:26 Patient NPO since Midnight. 3:58:35 Is the patient allergic to Iodine/contrast media? No. 3:58:36 Is patient on blood thinner?Yes 3:58:38 ACC The patient was administered the following blood thiners within the last 24 hours: ACCPlavix 3:59:22 Patient diabetic? Yes. 3:59:23 If diabetic: On Metformin? Yes 3:59:39 mETFORMIN LAST DOSE UNKNOWN 3:59:57 ----Pre-sedation anethsthesia assessment.---- 4:00:06 Oxygen 16 l/min intubated via et tube was administered by Charles Martin MD; Per physician; 4:00:12 UNABLE TO GET PREASSESSMENT, PATIENT ON VENT 4:00:14 Lidocaine 2% 20ml vial added to field was administered by Charles Martin MD; used for procedure; 4:00:15 Pre procedure: right dorsailis pedis pulse 1+ Palpable, but thready & weak; easily obliterated 4:00:20 Patient pain scale 0/10 ?. 4:00:24 IV patent on arrival in left hand with 0.9% NaCl at KVO. 4:00:26 Lab results completed and on chart. 4:00:30 Heparin Flush Bag (1000units/500ml NS) 2 bags added to field was administered by Charles Martin MD; Per physician; 4:00:30 Right groin area was prepped with chlora-prep and draped in sterile fashion 4:00:30 Alarms reviewed by R. N. 4:00:31 Sharps counted by scrub and verified by R.N. 4:00:32 Final Timeout: patient, procedure, and site verified with staff and physician. All members of the team are in agreement. 4:00:34 Right groin site verified by team. 4:00:39 0.9% NaCl kvo ml/hr I.V. was administered by Patricia Crabtree RN; Per physician; 4:00:42 Physical assessment completed. ASA score P 4 - A patient with severe systemic disease that is a constant threat to life as per Charles Martin MD. 4:00:51 Sedation plan: TIVA Medication:Propofol 4:01:10 PATIENT ON PROPOFOL DRIP FOR ENTUBATION 4:01:18 Use device set Femoral Dx 4:01:19 ACIST Syringe (42084) opened to sterile field. 4:01:20 Bag Decanter () opened to sterile field. 4:01:20 Medline Cath Pack ([id number]) opened to sterile field. 4:01:22 ACIST Hand Control (73352) opened to sterile field. 4:01:22 ACIST Manifold (05642) opened to sterile field. 4:01:23 DIAGNOSTIC Multipack 5Fr catheter set (UW4434) opened to sterile field. 4:01:23 Tegaderm 4 x 4 (1626W) opened to sterile field. 4:01:24 SHEATH Prelude 5Fr 0.035 (LCP-5C-42-035) opened to sterile field. 4:01:30 Use device set MARTIN PCI 4:01:34 SHEATH Prelude 6Fr 0.035 (OWO-7E-00-035) opened to sterile field. 4:01:37 TUBING High Pressure Extension Tubing (Sourav) (AY5968Y) opened to sterile field. 4:01:38 INFLATOR Thuy Barron (LO8123) opened to sterile field. 4:01:40 BMW 300cm [place] 2 J wire ([id number]) opened to sterile field. 4:03:28 Diprivan 1% (Propofol) 10 mcg/kg/min I.V. was administered by Patricia Crabtree RN; Per physician; 4:04:31 Procedure started. 4:04:34 Local anesthetic to right femoral artery with Lidocaine 2% by Charles Martin MD.INITIAL ACCESS ONLY 4:04:44 A 6 Fr Short sheath was inserted into the Right Femoral artery 4:06:34 A 5 Fr sheath was inserted into the Right Femoral vein FOR IV ACCESS 4:07:11 6 Fr XBLAD 3.5 guide catheter was inserted over the wire 4:07:33 Baseline sample Acquired. 4:08:54 BMW wire advanced. 4:10:07 Heparin Bolus 7000 units I.V. was administered by Patricia Crabtree RN; for anticoagulation; verified with dr martin 4:10:51 Inflate balloon Inflation number: 1 A EMERGE OTW 2.0 x 20 balloon ([id number]) was prepped and advanced across the Prox LAD, then inflated to 12 RIGOBERTO for 0:10 (min:sec). 4:11:08 Inflation number: 2 The EMERGE OTW 2.0 x 20 balloon ([id number]) was reinflated across the Prox LAD, to 12 RIGOBERTO for 0:12 (min:sec). 4:11:22 Inflation number: 3 The EMERGE OTW 2.0 x 20 balloon ([id number]) was reinflated across the Prox LAD, to 12 RIGOBERTO for 0:05 (min:sec). 4:11:48 Diprivan 1% (Propofol) 20 mcg/kg/min I.V. was administered by Patricia Crabtree RN; Per physician; 4:12:21 Inflation number: 4 The EMERGE OTW 2.0 x 20 balloon ([id number]) was reinflated across the Prox LAD, to 16 RIGOBERTO for 0:13 (min:sec). 4:14:09 Balloon removed over the wire. 4:14:09 Wire removed. 4:14:10 Guide catheter removed. 4:14:29 Integrilin (Bolus 2mg/ml) 6.2 ml I.V. was administered by Patricia Crabtree RN; for antiplatelet therapy; wasted 3.8 ml of vial 4:15:23 A MULTIPACK 3DRC 5Fr catheter was advanced over the wire and used for Right Coronary Angiography. 4:17:17 Catheter removed. 4:17:31 A MULTIPACK Pigtail 5 Fr catheter was advanced over the wire and used for LV Angiography. 4:18:46 LV gram done using FLORES 4:18:52 EF : 25 % 4:18:54 LV hemodynamics recorded. 4:18:56 Injector settings: Ml/sec: 10, Volume: 20, 4:19:21 Catheter removed. 4:19:41 Integrilin Drip (75mg/100ml) 5.4 ml/hr I.V. drip-renal dose was administered by Patricia Crabtree RN; Per physician; 4:20:16 Sheath removed intact; hemostasis achieved with Exoseal to the Right Femoral artery. 4:20:47 Sheath removed intact; hemostasis achieved with Sheath sutured in place to the Right Femoral vein. 4:20:59 EXOSEAL 6Fr (EX600) opened to sterile field. 4:21:02 Procedure ended.(Physican Out) 4:21:26 2-0 Silk 685H opened to sterile field. 4:21:57 Fluoroscopy time 03.60 minutes. 4:22:01 Flurop Dose total: 715 4:22:01 Fluoroscopy dose: 715 mGy 4:22:05 Contrast amount:Isovue 300 87ml. 4:22:07 Sharps counted by scrub and verified by R.N. 4:22:07 Insertion/operative site no bleeding no hematoma. 4:22:10 Post-op/insertion site Right Femoral artery dressed using a 4 x 4 and Tegaderm. 4:22:14 Post right femoral artery:stable, clean and dry 4:22:15 Post Procedure Pulses reassessed and unchanged 4:22:25 Post-procedure physical assessment completed. ASA score P 4 - A patient with severe systemic disease that is a constant threat to life as per Charles Martin MD. 4:22:46 Post procedure rhythm: unchanged. 4:22:50 Estimated blood loss: 10 ml 4:22:52 Post procedure instruction explained to patient.Patient verbalizes understanding. 4:22:53 Patient needs reinforcement of post procedure teaching. 4:23:03 Procedure type changed to Cath procedure, Diagnostic procedure, LHC, LHC w/Coronaries, PCI procedure, AMI/SVG/ONLINE JOURNALIST PTCA or Stent, AMI-BMS/TESFAYE Initial 4:23:08 Procedure Complication : No complications 4:23:44 See physician's report for complete and final results. 4:25:34 Procedure and supply charges have been captured, reviewed, submitted and are correct. 4:27:04 Vital chart was started 4:27:45 Nitro (50mg/250 D5W) 5 mcg/min I.V. drip was administered by Patricia Crabtree RN; Per physician; for pul. htn. 4:29:05 Diprivan 1% (Propofol) 30 mcg/kg/min I.V. was administered by Patricia Crabtree RN; Per physician; 4:30:56 Tegaderm 4 x 4 (1626W) opened to sterile field. 4:31:24 Vital chart was stopped 4:31:26 Report given to CVICU. 4:31:35 Patient transfered to CVICU with Bed. 4:31:50 Procedure ended. 4:31:50 Full Disclosure recording stopped 4:32:11 End room use (Document Last) Intervention Summary Intervention Notes Time ActionType Lesion and Equipment Action# Pressure Duration Attributes Used 4:10:51 Inflate Prox LAD EMERGE OTW 1 12 00:11 balloon 2.0 x 20 balloon ([id number]) 4:11:08 Reinflate Prox LAD EMERGE OTW 2 12 00:12 balloon 2.0 x 20 balloon ([id number]) 4:11:22 Reinflate Prox LAD EMERGE OTW 3 12 00:06 balloon 2.0 x 20 balloon ([id number]) 4:12:21 Reinflate Prox LAD EMERGE OTW 4 16 00:13 balloon 2.0 x 20 balloon ([id number]) Device Usage Item Name Manufacture Quantity Catalog Number Hospital Part Current Minimal Lot# / Charge Number Stock Stock Serial# Code ACIST Syringe Acist 1 84747 262848 952335 896177 20 (66923) [employer] Bag Decanter Microtek 1 252992 82500 543506 5 () Medical Inc. Medline Cath Cardinal 1 [id number] 750386 22812 006863 5 Pack Health ([id number]) ACIST Hand Acist 1 40557 937767 253048 655658 5 Control (45684) Medical Systems Inc ACIST Manifold Acist 1 65182 028941 217864 398503 5 (89629) Medical Systems Inc DIAGNOSTIC Cardinal 1 QG3678 931103 15810 534284 30 Multipack 5Fr Health catheter set (OK6063) Tegaderm 4 x 4 3M 2 1626W 206716 001904 428605 5 (1626W) SHEATH Prelude Merit 1 CDL-6N-25-035 805971 104258 006371 5 5Fr 0.035 Medical (JXZ-8G-24-035) SHEATH Prelude Merit 1 YEI-8D-64-35 539394 8391679 692917 5 6Fr 0.035 Medical (ORA-0E-39-035) TUBING High Merit 1 BN2662C 369609 11745 097371 10 Pressure Medical Extension Tubing (Martin) (UT3085K) INFLATOR Merit Merit 1 EZ5887 512513 511155 553323 15 [facility] Medical (YV4092) BMW 300cm Sahni 1 4380514V 853152 234466 434289 5 [place] 2 J Vascular wire (2635765B) EMERGE OTW 2.0 [place] 1 [id number] 125067 369384 060626 5 x 20 balloon Scientific ([id number]) MULTIPACK 3DRC Cardinal 1 444068 5 5Fr catheter Health MULTIPACK Cardinal 1 235451 5 Pigtail 5 Fr Health catheter EXOSEAL 6Fr Cardinal 1 EX600 422554 896435 002011 10 (EX600) Health 2-0 Silk 685H Ethicon 1 685H 084429 02618 173068 5 Signature Audit [place] Stage Time Signature Unsigned Intra-Procedure 05/29/2018 Lorri 4:32:22 AM Counts RT(R) Signatures Monitor : Lorri Signature : Counts RT Date : Time : [facility] [address] [place] [address]
--- NOTE | ~2018-05-29 | MORECARE ---
CASE MANAGEMENT DISCHARGE SUMMARY PATIENT: CESAR ST UNIT: [id number] ADM DATE: 05/29/18 AGE: 48 : [birth year] SEX: F ROOM/BED: D.4958 AUTHOR: CECILIA MONK PHYSICIAN: REFERRING PHYSICIAN: LILLI ÁLVAREZ MD DATE OF SERVICE: 06/01/18 Discharge Plan Patient Name: CESAR ST Facility: [facility]:[place] : 1970 Planned Disposition: Home Anticipated Discharge Date: Discharge Date: Expected LOS: Initial Reviewer: [email or web address] Initial Review Date: 06/01/2018 Generated: 06/01/18 4:06 pm Comments DCP- Discharge Planning Updated by [email or web address]: Monique Rudolph on 06/01/18 2:[address] Patient Name: CESAR ST Admission Status: ER Accout number: [id number] Admission Date: 05-29-2018 : 1970 Admission Diagnosis: Attending: LILLI ÁLVAREZ Current LOS: 3 Anticipated DC Date: Planned Disposition: Home Primary Insurance: [employer]ED [employer]ICA[employer] Discharge Planning Comments: CM met with patient at bedside after obtaining verbal consent. Patient plans on returning to her home upon discharge. Patient denies any discharge needs at this time. CM will continue to follow and assist as needed with discharge planning / needs. Laboratory Administrative Director: Monique Rudolph Laboratory Administrative Director: Monique Rudolph DCPIA - Discharge Planning Initial Assessment Updated by [email or web address]: Monique Rudolph on 06/01/18 3:01 pm * Is the patient Alert and Oriented? Yes * How many steps to enter\exit or inside your home? * PCP [place] * Pharmacy [facility]. * Preadmission Environment Home Alone * ADLs Independent * Equipment None * Verbal permission to speak to the caregivers and representatives has been obtained from the patient. N/A * Community resources currently utilized None * Additional services required to return to the preadmission environment? No * Can the patient safely return to the preadmission environment? Yes * Has this patient been hospitalized within the prior 30 days at any hospital? No Patient Name: CESAR ST Page [phone] at 1506 All edits/amendments must be made on the electronic document DICTATION DATE: 06/01/181505 EVENT PROMOTER: PEG 06/01/181505 RPT#: [id number] DC DATE: STATUS: ADM IN [facility] [address] [place] [address] END OF REPORT
--- NOTE | ~2018-05-29 | EC ---
PATIENT:CESAR ST DATE OF SERVICE: 05/29/18 SEX: F MEDICAL RECORD: [id number] DATE OF : [birth year] LOCATION:D.M2 D.212 AGE OF PATIENT: 48 ADMISSION DATE: 05/29/18 REFERRING PHYSICIAN: INTERPRETING PHYSICIAN: ALDEN MOBLEY MD ECHOCARDIOGRAM REPORT ECHO CHARGES 4 ECHO COMPLETE Date: 05/31/18 CLINICAL DIAGNOSIS: OK ECHOCARDIOGRAPHIC MEASUREMENTS (adult normal given) AC root (d.<3.7cm) 3.0 cm LV Septum d (<1.2 cm> 2.0 cm Valve Excursion 2.0 cm LV Septum (systole) 2.2 cm Left Atria (s.<4.0cm> 4.7 cm LVPW d(<1.2cm) 1.5 cm RV (d.<2.3cm) 2.5 cm LVPW (sytole) 2.0 cm LV diastole(<5.6CM) 4.1 cm MV E-F(>70mm/sec) cm LV systole 3.1 cm LVOT Diameter 1.7 cm MV exc.(>10mm) cm Est.ejection fraction (50-75%) % DOPPLER: LVIT cm/sec A 70 cm/sec E 95 cm/sec LA cm/sec RVSP 28 mmHg LVOT 98 cm/sec AOP1/2T m/s Asc. Ao 129 cm/sec RVOT 82 cm/sec RA cm/sec PA 90 cm/sec AV Gradient Peak 6.68 mmHg AV Mean 4.15 mmHg AV Area 1.8 cm MV Gradient Peak 4.20 mmHg MV Mean 2.16 mmHg MV Area cm COMMENTS: Neuro Ophthalmologist: Efraín [facility] Waiter And Cashier: Latia Mobley TAPE# PACS Pericardial Effusion N DATE OF SERVICE: PROCEDURE: Transthoracic echocardiogram. FINDINGS: 1. The left ventricle shows segmental wall motion abnormalities. There is dyskinetic distal anterior, anterior apical, inferior apical portion. The basilar segments are preserved and even slightly hyperdynamic. There is left ventricular hypertrophy seen. Inflow characteristics are consistent with diastolic dysfunction. The ejection fraction is 35% to 40%. ECHOCARDIOGRAM REPORT [id number] CESAR ST 2. The left atrium is moderately dilated to 4.7 cm. 3. The aortic valve is normal. 4. The mitral valve is normal. 5. The tricuspid valve is normal with trace tricuspid regurgitation. RVSP of 30 mmHg. 6. The right ventricle is normal in size, shape, structure, and function. 7. The right atrium is normal. CONCLUSIONS: The patient has a moderate to severe ischemic cardiomyopathy with regional wall motion abnormalities, ejection fraction of 35% to 40%. TRANSINT:[id number] Voice Confirmation ID: [id number] DOCUMENT ID: [id number] ALDEN MOBLEY MD at 2344 CC: [id number] DICTATION DATE: 06/01/18 1039 BALLING MACHINE OPERATOR: 06/01/18 1222 DIS IN 06/03/18 [facility] [address] [place] [address]
--- NOTE | ~2018-05-29 | CN ---
PATIENT NAME:CESAR DEAN MEDICAL RECORD: [id number] : [birth year] LOCATION:[facility].CV02 ADMIT DATE: 05/29/18 ACCOUNT: [id number] CONSULTING PHYSICIAN: DOREEN DOMÍNGUEZ MD REFERRING PHYSICIAN: LILLI ÁLVAREZ MD DATE OF CONSULTATION: 05/30/2018 CONSULT REQUESTING PHYSICIAN: Hayley London MD REASON FOR CONSULTATION: Vent management. HISTORY OF PRESENT ILLNESS: Ms. Travis is a 48-year-old -[place] Islander female who has acute DE 2 weeks ago. The patient came into the ER with acute shortness of breath. The patient was in respiratory distress and acute pulmonary edema. The patient was electively intubated. Now, the patient is orally intubated and sedated. The history was taken by reviewing the patient's note as well as talking to the nursing staff. REVIEW OF SYSTEMS: As in history of present illness. PAST MEDICAL HISTORY: 1. Hypertension. 2. Coronary artery disease. 3. Diabetes mellitus. 4. Hyperlipidemia. PAST SURGICAL HISTORY: She has cardiac catheterization and stent placement. ALLERGIES: There are no known drug allergy. MEDICATIONS: On SecondMic is reviewed. PERSONAL AND SOCIAL HISTORY: She is a nondrinker. FAMILY HISTORY: Nonobtainable. PHYSICAL EXAMINATION: GENERAL: Now, the patient is orally intubated and sedated. VITAL SIGNS: The blood pressure is 116/70, pulse is 93, respiration 14, temperature is 99.4, T-max is 100. HEENT: Conjunctiva is pale. Sclerae is not icteric. Pupils are equal, round, reactive to light. NECK: Supple, no JVD. CHEST: There are bilateral crackles. No wheezing. HEART: Rate and rhythm regular, normal sound, no murmur. ABDOMEN: Soft, bowel sounds present. No hepatosplenomegaly. RECTAL: Deferred. EXTREMITIES: No cyanosis, no clubbing. There is no pedal edema. SKIN: Warm, normal turgor. CENTRAL NERVOUS SYSTEM: The patient is orally intubated and sedated. There is no obvious cranial nerve abnormality. LABORATORY DATA: CBC: The WBC is 7.4, hemoglobin 8.3, hematocrit 25.9, the platelet count 290. Chemistry: Sodium is 142, potassium 3, BUN is 12, creatinine 1.2, AST is 301, ALT is 91. ABG: The pH is 7.48, pCO2 is 33.2, the CONSULT REPORT [id number] CESAR DEAN pO2 is 157. On arrival, her pH was 7.19, pCO2 was 54.6, and the pO2 was 57. IMPRESSION: 1. Acute hypoxic hypercapnic respiratory failure. 2. Respiratory acidosis secondary to #1. 3. Pulmonary edema. 4. Bilateral pleural effusion. 5. Acute DE. 6. Anemia, possible acute GI blood loss. 7. Acute kidney injury. 8. Acute systolic CHF. 9. Pleural effusion. RECOMMENDATION: 1. We will continue mechanical ventilation and adjust the setting. GI and DVT prophylaxis. 2. Start her on empiric Zosyn. 3. Check the sputum culture and sensitivity. 4. Follow up series of labs and chest radiograph. 5. Agree with the transfusion. Follow up labs and chest radiograph. Discussed with Dr. eBnjamin. The critical care time is [address] [place], thank you for involving me in the care of Ms. Dean. TRANSINT:[id number] Voice Confirmation ID: [id number] DOCUMENT ID: [id number] DOREEN DOMÍNGUEZ MD CC: [id number] DICTATION DATE: 05/30/18 1047 GENERAL PRACTITIONER: 05/30/18 1245 ADM IN [facility] [address] [place] [address]
[~2018-05-29 02:42] MED LIST changes: -COREG 3.1253.125 MG PO; -EFFIENT10 MG PO; -FUROSEMIDE20 MG PO; -K-TAB10 MEQ PO; -NIFEDIPINE60 MG/BOTT PO; -Procardia XL PO
[2018-05-29 03:23] LABS: BASOPHILS 0.1 % (0-2); EOSINOPHILS 0.4 % (0-7); HEMATOCRIT 36.1 % (36.0-48.0); HEMOGLOBIN 11.4 g/dL (12-16); IMMATURE GRANULOCYTES 0.3 % (0-5); LYMPHOCYTES 34.3 % (15-50); MCH 28.4 pg (26.0-34.0); MCHC 31.6 g/dL (31.0-37.0); MEAN PLATELET VOLUME 10.1 fL (7.4-10.4); NEUTROPHILS 59.9 % (40-80); RBC 4.01 10x6/uL (4.00-5.40); RDW 14.5 % (11.5-14.5); WBC 10.8 10x3/uL (4.8-10.8)
[2018-05-29 03:26] LABS: PLATELET COUNT 480 10x3/uL (130-400)
[2018-05-29 03:35] LABS: APTT 25.9 SECONDS (22.8-39.4); INR 1.09 (0.85-1.17); PROTIME 13.7 SECONDS (11.6-15.0)
[2018-05-29 03:37] LABS: D-DIMER-QUANTITATIVE 1.91 ug/mLFEU (0.20-0.54)
[2018-05-29 03:39] LABS: ALKALINE PHOSPHATASE 96 U/L (46-116); ALT (SGPT) 63 U/L (10-68); BILIRUBIN - TOTAL 0.57 mg/dL (0.2-1.3); CALC OSMOLALITY 289 mosm/kg (275-300); CALCIUM 9.9 mg/dL (8.5-10.1); CARBON DIOXIDE 21.6 mmol/L (21.0-32.0); CHLORIDE - SERUM 103 mmol/L (98-107); CREATININE - SERUM 1.4 mg/dL (0.6-1.3); GLUCOSE 296 mg/dL (74-106); POTASSIUM - SERUM 3.5 mmol/L (3.5-5.1); PROTEIN - SERUM 8.3 g/dL (6.4-8.2); SODIUM 140 mmol/L (136-145); UREA NITROGEN 13 mg/dL (7-18); eGFR NON AFRICAN AMERICAN 42 mL/min (90-120)
[2018-05-29 03:55] LABS: CREATINE KINASE 109 UL (21-215); PRO BNP 8925 pg/mL (0-125)
[2018-05-29 03:56] LABS: TROPONIN-I 0.179 ng/mL (0.000-0.060)
[2018-05-29 04:16] LABS: PLT FUNCT.(P2Y12) PLAVIX 169 PRU (194-418)
[2018-05-29 08:15] LABS: HCG SERUM NEGATIVE (NEGATIVE)
[2018-05-29 23:27] LABS: APPEARANCE CLOUDY (CLEAR); BILIRUBIN NEGATIVE (NEGATIVE); COLOR YELLOW (YELLOW); GLUCOSE NEGATIVE (NEGATIVE); KETONE MODERATE mg/dL (NEGATIVE); NITRITE NEGATIVE (NEGATIVE); PROTEIN TRACE mg/dL (NEGATIVE); SPECIFIC GRAVITY 1.025 (1.005-1.020); UROBILINOGEN NORMAL (NORMAL)
[2018-05-29 23:34] LABS: EPITHELIAL CELLS OCC /hpf (0-5); RED CELLS - URINE >50 /hpf (0-5); WHITE CELLS - URINE 0-5 /hpf (0-5)
[2018-05-29 23:35] LABS: BACTERIA MANY /hpf (NONE SEEN); MUCUS <1+ /lpf (NONE SEEN); URIC ACID CRYSTALS 0-5 /hpf (NONE SEEN)
[2018-05-30] VITALS (52 sets, daily range): BP systolic 106–142; BP diastolic 21–96; BMI 34.6
[2018-05-30 06:19] LABS: ALBUMIN 2.3 g/dL (3.4-5.0); ANION GAP 13.5 mmol/L (8-16); BILIRUBIN - TOTAL 0.61 mg/dL (0.2-1.3); CALCIUM 8.3 mg/dL (8.5-10.1); CARBON DIOXIDE 25.5 mmol/L (21.0-32.0); CREATININE - SERUM 1.2 mg/dL (0.6-1.3); PROTEIN - SERUM 6.3 g/dL (6.4-8.2)
[2018-05-30 07:59] LABS: BASOPHILS 0.1 % (0-2); EOSINOPHILS 0.4 % (0-7); HEMATOCRIT 25.9 % (36.0-48.0); HEMOGLOBIN 8.3 g/dL (12-16); IMMATURE GRANULOCYTES 0.1 % (0-5); MCH 27.8 pg (26.0-34.0); MCV 86.6 fL (80.0-100.0); MEAN PLATELET VOLUME 9.6 fL (7.4-10.4); MONOCYTES 10.4 % (2-11); PLATELET COUNT 290 10x3/uL (130-400); RBC 2.99 10x6/uL (4.00-5.40); RDW 14.7 % (11.5-14.5)
[2018-05-30 08:00] LABS: WBC 7.4 10x3/uL (4.8-10.8)
[2018-05-30 17:42] LABS: BASOPHILS 0.1 % (0-2); EOSINOPHILS 0.6 % (0-7); HEMATOCRIT 29.5 % (36.0-48.0); HEMOGLOBIN 9.4 g/dL (12-16); IMMATURE GRANULOCYTES 0.3 % (0-5); LYMPHOCYTES 12.6 % (15-50); MCH 27.8 pg (26.0-34.0); MCHC 31.9 g/dL (31.0-37.0); MCV 87.3 fL (80.0-100.0); MEAN PLATELET VOLUME 10.1 fL (7.4-10.4); MONOCYTES 8.7 % (2-11); NEUTROPHILS 77.7 % (40-80); PLATELET COUNT 279 10x3/uL (130-400); RBC 3.38 10x6/uL (4.00-5.40); RDW 14.8 % (11.5-14.5)
[2018-05-30 17:48] LABS: WBC 9.5 10x3/uL (4.8-10.8)
[2018-05-30 18:15] LABS: ALBUMIN 2.4 g/dL (3.4-5.0); ANION GAP 14.6 mmol/L (8-16); BILIRUBIN - TOTAL 0.76 mg/dL (0.2-1.3); CALCIUM 8.3 mg/dL (8.5-10.1); CARBON DIOXIDE 23.8 mmol/L (21.0-32.0); POTASSIUM - SERUM 3.4 mmol/L (3.5-5.1); PROTEIN - SERUM 6.5 g/dL (6.4-8.2)
[2018-05-31] VITALS (23 sets, daily range): BP systolic 123–179; BP diastolic 67–98; Ht 165.1 cm; Wt 91.8 kg
[2018-05-31 00:46] LABS: HEMATOCRIT 27.8 % (36.0-48.0); HEMOGLOBIN 8.9 g/dL (12-16)
[2018-05-31 06:32] LABS: BASOPHILS 0.1 % (0-2); EOSINOPHILS 1.3 % (0-7); HEMOGLOBIN 9.2 g/dL (12-16); IMMATURE GRANULOCYTES 0.2 % (0-5); LYMPHOCYTES 13.3 % (15-50); MCH 27.8 pg (26.0-34.0); MCHC 31.7 g/dL (31.0-37.0); MCV 87.6 fL (80.0-100.0); MEAN PLATELET VOLUME 10.2 fL (7.4-10.4); MONOCYTES 10.5 % (2-11); NEUTROPHILS 74.6 % (40-80); PLATELET COUNT 276 10x3/uL (130-400); RBC 3.31 10x6/uL (4.00-5.40); RDW 15.1 % (11.5-14.5); WBC 8.8 10x3/uL (4.8-10.8)
[2018-05-31 06:39] LABS: ALBUMIN 2.3 g/dL (3.4-5.0); ALKALINE PHOSPHATASE 53 U/L (46-116); ALT (SGPT) 66 U/L (10-68); BILIRUBIN - TOTAL 0.72 mg/dL (0.2-1.3); CALC OSMOLALITY 280 mosm/kg (275-300); CALCIUM 8.3 mg/dL (8.5-10.1); CARBON DIOXIDE 23.2 mmol/L (21.0-32.0); CHLORIDE - SERUM 108 mmol/L (98-107); CREATININE - SERUM 0.8 mg/dL (0.6-1.3); GLUCOSE 72 mg/dL (74-106); POTASSIUM - SERUM 3.5 mmol/L (3.5-5.1); PROTEIN - SERUM 6.4 g/dL (6.4-8.2); SODIUM 142 mmol/L (136-145); UREA NITROGEN 10 mg/dL (7-18); eGFR NON AFRICAN AMERICAN 81 mL/min (90-120)
[2018-05-31 12:09] LABS: HEMATOCRIT 31.2 % (36.0-48.0); HEMOGLOBIN 9.9 g/dL (12-16)
[2018-06-01] VITALS (15 sets, daily range): BP systolic 135–165; BP diastolic 67–93
[2018-06-01 00:12] LABS: HEMOGLOBIN 9.9 g/dL (12-16)
[2018-06-01 04:41] LABS: BASOPHILS 0.1 % (0-2); HEMATOCRIT 32.1 % (36.0-48.0); HEMOGLOBIN 10.1 g/dL (12-16); IMMATURE GRANULOCYTES 0.3 % (0-5); LYMPHOCYTES 12.2 % (15-50); MCH 27.7 pg (26.0-34.0); MCHC 31.5 g/dL (31.0-37.0); MCV 87.9 fL (80.0-100.0); MEAN PLATELET VOLUME 10.3 fL (7.4-10.4); MONOCYTES 9.4 % (2-11); PLATELET COUNT 301 10x3/uL (130-400); RBC 3.65 10x6/uL (4.00-5.40); RDW 14.8 % (11.5-14.5); WBC 8.7 10x3/uL (4.8-10.8)
[2018-06-01 05:03] LABS: ALBUMIN 2.5 g/dL (3.4-5.0); ALKALINE PHOSPHATASE 59 U/L (46-116); ALT (SGPT) 53 U/L (10-68); BILIRUBIN - TOTAL 0.88 mg/dL (0.2-1.3); CALCIUM 8.3 mg/dL (8.5-10.1); CARBON DIOXIDE 22.8 mmol/L (21.0-32.0); CHLORIDE - SERUM 104 mmol/L (98-107); CREATININE - SERUM 0.8 mg/dL (0.6-1.3); POTASSIUM - SERUM 3.4 mmol/L (3.5-5.1); PROTEIN - SERUM 7.2 g/dL (6.4-8.2); SODIUM 139 mmol/L (136-145); UREA NITROGEN 9 mg/dL (7-18); eGFR NON AFRICAN AMERICAN 81 mL/min (90-120)
[2018-06-01 05:14] LABS: CALC OSMOLALITY 278 mosm/kg (275-300); GLUCOSE 141 mg/dL (74-106)
[2018-06-01 11:27] LABS: HEMATOCRIT 31.7 % (36.0-48.0); HEMOGLOBIN 10.1 g/dL (12-16)
[2018-06-02] VITALS: BP 122/70
[2018-06-02 00:10] LABS: HEMATOCRIT 32.7 % (36.0-48.0); HEMOGLOBIN 10.8 g/dL (12-16)
[2018-06-02 05:56] LABS: BASOPHILS 0.2 % (0-2); EOSINOPHILS 2.1 % (0-7); HEMATOCRIT 32.8 % (36.0-48.0); HEMOGLOBIN 10.5 g/dL (12-16); IMMATURE GRANULOCYTES 0.2 % (0-5); MCH 27.9 pg (26.0-34.0); MEAN PLATELET VOLUME 10.6 fL (7.4-10.4); MONOCYTES 13.6 % (2-11); NEUTROPHILS 67.9 % (40-80); PLATELET COUNT 327 10x3/uL (130-400); RBC 3.77 10x6/uL (4.00-5.40); RDW 14.6 % (11.5-14.5)
[2018-06-02 05:58] LABS: WBC 6.3 10x3/uL (4.8-10.8)
[2018-06-02 06:08] LABS: ALBUMIN 2.8 g/dL (3.4-5.0); ALKALINE PHOSPHATASE 60 U/L (46-116); ALT (SGPT) 51 U/L (10-68); CALCIUM 8.6 mg/dL (8.5-10.1); CARBON DIOXIDE 24.6 mmol/L (21.0-32.0); CHLORIDE - SERUM 103 mmol/L (98-107); CREATININE - SERUM 0.8 mg/dL (0.6-1.3); GLUCOSE 183 mg/dL (74-106); POTASSIUM - SERUM 3.2 mmol/L (3.5-5.1); PROTEIN - SERUM 7.9 g/dL (6.4-8.2); SODIUM 138 mmol/L (136-145); eGFR NON AFRICAN AMERICAN 81 mL/min (90-120)
[2018-06-02 06:09] LABS: CALC OSMOLALITY 278 mosm/kg (275-300); UREA NITROGEN 6 mg/dL (7-18)
[2018-06-02 07:27] VITALS: BP 139/79
[2018-06-02 12:10] VITALS: BP 113/71
[2018-06-02 19:02] VITALS: BP 142/89
[2018-06-02 22:02] VITALS: BP 137/75
[2018-06-03 01:00] VITALS: BP 142/86
[2018-06-03 04:00] VITALS: BP 140/88
[2018-06-03 04:52] LABS: BASOPHILS 0.3 % (0-2); EOSINOPHILS 2.5 % (0-7); HEMOGLOBIN 10.4 g/dL (12-16); IMMATURE GRANULOCYTES 0.3 % (0-5); LYMPHOCYTES 18.9 % (15-50); MCH 28.4 pg (26.0-34.0); MCHC 32.5 g/dL (31.0-37.0); MCV 87.4 fL (80.0-100.0); MEAN PLATELET VOLUME 10.3 fL (7.4-10.4); MONOCYTES 14.6 % (2-11); NEUTROPHILS 63.4 % (40-80); PLATELET COUNT 301 10x3/uL (130-400); RBC 3.66 10x6/uL (4.00-5.40); RDW 14.4 % (11.5-14.5)
[2018-06-03 05:12] LABS: ALBUMIN 2.5 g/dL (3.4-5.0); ALKALINE PHOSPHATASE 54 U/L (46-116); ALT (SGPT) 32 U/L (10-68); BILIRUBIN - TOTAL 0.43 mg/dL (0.2-1.3); CALC OSMOLALITY 277 mosm/kg (275-300); CALCIUM 8.7 mg/dL (8.5-10.1); CARBON DIOXIDE 23.9 mmol/L (21.0-32.0); CHLORIDE - SERUM 105 mmol/L (98-107); CREATININE - SERUM 0.8 mg/dL (0.6-1.3); GLUCOSE 155 mg/dL (74-106); POTASSIUM - SERUM 3.8 mmol/L (3.5-5.1); PROTEIN - SERUM 7.1 g/dL (6.4-8.2); SODIUM 138 mmol/L (136-145); UREA NITROGEN 9 mg/dL (7-18); eGFR NON AFRICAN AMERICAN 81 mL/min (90-120)
[2018-06-03 08:08] VITALS: BP 136/77
[2018-06-03] MEDS ORDERED: EFFIENT10 MG PO (10:31)
[2018-06-03] MEDS ORDERED: COREG 3.1253.125 MG PO (10:32)
[2018-06-03] MEDS ORDERED: Procardia XL PO (10:34)
[2018-06-03 11:42] VITALS: BP 141/92
[2018-06-03] MEDS ORDERED: K-TAB10 MEQ PO (11:54)
[2018-06-03] MEDS ORDERED: FUROSEMIDE20 MG PO (11:54)
[2018-06-03] MEDS ORDERED: NIFEDIPINE60 MG/BOTT PO (12:21)
== END 2018-06-03 14:28 | disposition home or self-care (01) | DRG 250 ==
LOC: D.ER 02:42 → D.M2 04:07 → D.CVICU 04:07 → D.M2 06-01 12:41
PROVIDERS: Emergency Medicine; Family Medicine; Internal Medicine Cardiovascular Disease; Internal Medicine Nephrology
PROC: B2151ZZ Fluoroscopy of Left Heart using Low Osmolar Contrast (ICD-10-PCS; 2018-05-29)
PROC: 4A023N7 Measurement of Cardiac Sampling and Pressure, Left Heart, Percutaneous Approach (ICD-10-PCS; 2018-05-29)
PROC: 5A1945Z Respiratory Ventilation, 24-96 Consecutive Hours (ICD-10-PCS; 2018-05-29)
PROC: 0BH17EZ Insertion of Endotracheal Airway into Trachea, Via Natural or Artificial Opening (ICD-10-PCS; 2018-05-29)
PROC: 02703ZZ Dilation of Coronary Artery, One Artery, Percutaneous Approach (ICD-10-PCS; principal; 2018-05-29 03:38)
PROC: B2111ZZ Fluoroscopy of Multiple Coronary Arteries using Low Osmolar Contrast (ICD-10-PCS; 2018-05-29 03:38)
DX: I97.190 Other postprocedural cardiac functional disturbances following cardiac surgery (principal); I21.A9 Other myocardial infarction type; I50.21 Acute systolic (congestive) heart failure; J96.01 Acute respiratory failure with hypoxia; J96.02 Acute respiratory failure with hypercapnia; T82.867A Thrombosis due to cardiac prosthetic devices, implants and grafts, initial encounter; E87.2 Acidosis; N17.9 Acute kidney failure, unspecified; I11.0 Hypertensive heart disease with heart failure; E11.9 Type 2 diabetes mellitus without complications; D64.9 Anemia, unspecified; E78.5 Hyperlipidemia, unspecified; I25.10 Atherosclerotic heart disease of native coronary artery without angina pectoris

== ENCOUNTER 2018-07-20 08:00 | Outpatient (CLI) | payer MEDICAID ==
[2018-05-31 15:05] VITALS: BMI 34.6
[~2018-07-20 08:00] MED LIST changes: +COREG 3.1253.125 MG PO; +EFFIENT10 MG PO; +FUROSEMIDE20 MG PO; +K-TAB10 MEQ PO; +NIFEDIPINE60 MG/BOTT PO; +Procardia XL PO
== END 2018-07-20 23:59 | disposition home or self-care (01) ==
LOC: D.MAMMO 08:00
DX: Z12.31 Encounter for screening mammogram for malignant neoplasm of breast (principal)

== ENCOUNTER 2019-01-14 04:08 | Inpatient (IN) | payer MEDICAID ==
[2019-01-14] VITALS (32 sets, daily range): BP systolic 95–182; BP diastolic 50–116; BMI 31.5; BMI 31.4
--- NOTE | ~2019-01-14 | HEMODYNAMI ---
PATIENT:CESAR ST MEDICAL RECORD: [id number] : 70 LOCATION:[facility] D.[id number] ADMISSION DATE: 01/14/19 Generatedon:01/14/20196:56 Patient name: CESAR ST Patient #: [id number] SSN: D OB: 1970 Date of study: 01/14/2019 Page: Of Hemodynamic Procedure Report Patient Data Patient Demographics Procedure consent was obtained First Name: CESAR Gender: Female Last Name: MACIEL : 1970 Middle Initial: MELLY Age: 48 year(s) Patient #: [id number] Race: Black Additional ID: [id number] Contact details Address: [address] [place] [address] [facility] [address] State: [place] City: [facility] Zip code: [address] Admission Admission Data Admission Date: 01/14/2019 Admission Time: 6:03 Admit Source: Other Insurance Payor: Private Room #: D.CV03 health insurance Height (in.): 65 BSA: 1.93 (m2) Height (cm.): 165.1 BMI: 31.51 (kg/m2) Weight (lbs.): 189.38 Weight (kg.): 85.9 Lab Results Lab Result Date: 01/14/2019 Lab Result Time: 0:00 Biochemistry Name Units Result Min Max BUN mg/dl 20 --(----)*- 7 18 Creatinine mg/dl 1.6 --(----)-* 0.6 1.3 CBC Name Units Result Min Max Hemoglobin g/dl 12.4 *-(----)-- 13.5 17.5 Procedure Procedure Types Cath Procedure Diagnostic Procedure LHC LH w/Coronaries Intra-Aortic Balloon Pump Procedure Description Procedure Date Procedure Date: 01/14/2019 Procedure Start Time: 6:08 Procedure End Time: 6:49 Procedure Staff Name Function Charles Benjamin MD Performing Physician Hayley Nowak RT Monitor Richard Licona RT Rafaela Ghotra RN Nurse Procedure Data Cath Procedure Fluoroscopy Diagnostic fluoroscopy Total fluoroscopy Time: 2.8 time: 2.8 min min Diagnostic fluoroscopy Total fluoroscopy dose: 633 dose: 633 mGy mGy Contrast Material Contrast Material Type Amount (ml) Isovue 300 66 Entry Location Entry Primary Successful Side Size Upsize Upsize Entry Closure Succes sful Closure Location (Fr) 1 (Fr) 2 (Fr) Remarks Device Remarks Femoral Right 6 Fr 8 Fr Sheath artery Short sutured in place Femoral Right 5 Fr Sheath vein sutured in place Estimated blood loss: 5 ml Diagnostic catheters Device Type Used For End Catheter Placement MULTIPACK JL 4.0 5Fr Left Coronary catheter Angiography MULTIPACK 3DRC 5Fr Right Coronary catheter Angiography MULTIPACK Pigtail 5 Fr LV Angiography catheter Procedure Complications No complications Procedure Medications Medication Administration Route Dosage 0.9% NaCl I.V. Oxygen 100 Lidocaine 2% added to field 20 Heparin Flush Bag added to field 2 bags (1000units/500ml NS) Diprivan 1% I.V. 40 mcg/kg/min (Propofol) Heparin Drip I.V. drip 1000 units/hr (08921flinc/250 D5W) Hemodynamics Rest BSA: 1.93 (m2) HGB: 12.4 (g/dl) O2 Consumption: Estimated: 216.07 (ml/min) O2 Co nsumption indexed: Estimated:111.95 (ml/min/m) Heart Rate: 105 (bpm) Pressure Samples Time Site Value (mmHg) Purpose Heart Use Rate(bpm) 6:16 LV 117/7,14 Snapshot 100 6:19 AO 123/77(97) Pullback 99 6:19 LV 123/3,12 Pullback 99 Gradients Valve Time Site 1 Site 2 Mean SEP/DFP Peak To Heart Use (mmHg) (sec/min) Peak Rate (mmHg) (bpm) Aortic 6:19 LV AO 15 11 0 99 123/3,12 123/77(97) Calculations Valve P-P Mean Valve Index Valve Source Name Gradient Area Flow (cm2) Aortic 0 15 0 15 Snapshots Pre Cath Intra NCS Post Cath Vital Signs Time Heart Resp SPO2 etCO2 NIBP (mmHg) Rhythm Pain Sedation Rate (ipm) (%) (mmHg) Status Level (bpm) 5:59:03 105 23 100 0 126/87(107) ST 0 (11) 5(A) , No pain 6:03:17 103 20 100 0 115/79(95) ST 0 (11) 5(A) , No pain 6:07:26 105 21 100 0 104/81(90) ST 0 (11) 5(A) , No pain 6:12:13 105 24 100 0 128/88(99) ST 0 (11) 5(A) , No pain 6:16:23 99 21 100 0 113/85(98) NSR 0 (11) 5(A) , No pain 6:20:29 98 19 100 0 122/85(97) NSR 0 (11) 5(A) , No pain 6:24:37 97 18 100 0 123/89(103) NSR 0 (11) 5(A) , No pain 6:28:46 96 19 100 0 118/89(105) NSR 0 (11) 5(A) , No pain 6:32:54 96 20 100 0 115/88(98) NSR 0 (11) 5(A) , No pain 6:37:14 96 20 100 0 120/89(101) NSR 0 (11) 5(A) , No pain 6:43:03 94 20 100 0 95/63(76) NSR 0 (11) 5(A) , No pain 6:51:16 92 17 100 0 90/53(82) NSR 0 (11) 5(A) , No pain Medications Time Medication Route Dose Verified Delivered Reason No nazia Effectiveness by by 6:03:38 0.9% NaCl I.V. kvo Charles Katy used for Sourav Ghotra cdl company driver 6:04:08 Oxygen vent 100 FiO2 Charles Katy used for Sourav Ghotra cdl company driver 6:04:18 Lidocaine 2% added 20ml vial Charles Charles for local to Sourav Benjamin MD anesthetic field 6:04:23 Diprivan 1% I.V. 40 Charles Charles for sedation in fusing (Propofol) mcg/kg/min Sourav Benjamin MD upon arrival to 6:04:24 Heparin Flush added 2 bags Charles Charles used for Bag to Sourav Benjamin MD procedure (1000units/500ml field NS) 6:36:24 Heparin Drip I.V. 1000 Charles Katy for ve rified (03002wzdsi/250 drip units/hr Sourav Ghotra anticoagulation with Dr. Garcia) MARIBEL Benjamin Procedure Log Time Note 5:36:01 Diagnostic Cath Status : Elective 5:36:26 Lab Result : BUN 20 mg/dl 5:36:26 Lab Result : Creatinine 1.6 mg/dl 5:36:26 Lab Result : Hemoglobin 12.4 g/dl 5:36:55 Richard Licona RT(R) sent for patient. Start room use. 5:36:57 Time tracking: Regular hours (M-F 7:00 - 5:00) 5:37:04 Plan of Care:Hemodynamics will remain stable., Cardiac rhythm will remain stable., Comfort level will be maintained., Respiratory function will remain adequate., Patient/ family verbilizes understanding of procedure., Procedure tolerated without complication., Recovers from procedure without complications.. 5:39:01 Admit Source: Other 5:39:07 Patient Height : 65 inches 5:39:12 Patient Weight : 189.38 lbs 5:39:24 Insurance Payor : Private health insurance 5:58:02 Vital chart was started 5:58:58 Patient received from ED to CCL 1 On ventilator. Tansferred to table in Supine position. 5:58:59 Warm blankets applied, and nile hugger turned on for patient comfort. 5:59:00 Correct patient and procedure confirmed by team. 5:59:04 Signed procedure consent form obtained from not obtained; Physician declared emergency. 5:59:05 ECG and BP/O2 sat monitors applied to patient. 5:59:08 Baseline sample Acquired. 5:59:09 Full Disclosure recording started 5:59:13 H&P Date Dictated: 01/14/2019 New H&P dictated by physician.. 5:59:15 Pre-procedure instructions explained to patient. 5:59:15 Pre-op teaching completed and patient verbalized understanding. 5:59:17 Family unavailable. 5:59:19 Patient NPO since Midnight. 5:59:29 Is the patient allergic to Iodine/contrast media? Unknown. 5:59:31 Was the patient premedicated? Unknown 5:59:32 Is patient on blood thinner?Unknown 5:59:36 Patient diabetic? Yes. 5:59:38 If diabetic: On Metformin? Unknown 5:59:41 Previous problem with sedation/anesthesia? No ? 5:59:44 Snore? Unknown 5:59:45 Sleep apnea? Unknown 5:59:48 Deviated septum? Unknown 5:59:51 Opens mouth fully? Unknown 5:59:53 Sticks out tongue? Unknown 5:59:55 Airway obstruction? Unknown ? 5:59:59 Dentures? Unknown ? 6:00:19 Pre procedure: right dorsailis pedis pulse 1+ Palpable, but thready & weak; easily obliterated 6:00:22 Pre procedure: left dorsailis pedis pulse 1+ Palpable, but thready & weak; easily obliterated 6:00:25 Patient pain scale 0/10 ?. 6:00:37 IV patent on arrival in right hand with 0.9% NaCl at O. 6:00:42 Lab results completed and on chart. 6:00:45 Right groin area was prepped with chlora-prep and draped in sterile fashion 6:00:46 Alarms reviewed by R. N. 6:00:46 Sharps counted by scrub and verified by R.N. 6:00:48 Physician arrived 6:00:48 --------ALL STOP TIME OUT------ 6:00:49 Final Timeout: patient, procedure, and site verified with staff and physician. All members of the team are in agreement. 6:00:51 Right groin site verified by team. 6:00:54 Maximum allowable Isovue 300 dose 300ml. Physician notified. (300ml for normal creatinines. For patients with creatinine of 1.7 or higher multiply weight(kg) x 5 divided by creatinine.) 6:00:57 Fire Safety Assessment: A--An alcohol-based skin anteseptic being used preoperatively., C--Open oxygen or nitrous oxide is being used., D--An ESU, laser, or fiber-optic light is being used. 6:01:02 Physical assessment completed. ASA score P 4 - A patient with severe systemic disease that is a constant threat to life as per Charles Benjamin MD. 6:01:05 Sedation plan: IV Moderate Sedation Medication:Versed, Fentanyl 6:01:10 Use device set Femoral Dx 6:01:11 ACIST Syringe (75568) opened to sterile field. 6:01:12 Bag Decanter (2002S) opened to sterile field. 6:01:12 Medline Cath Pack (PKXN49952) opened to sterile field. 6:01:13 DIAGNOSTIC WIRE .035 260cm J wire (013822) opened to sterile field. 6:01:14 ACIST Hand Control (79798) opened to sterile field. 6:01:14 ACIST Manifold (46311) opened to sterile field. 6:01:14 DIAGNOSTIC Multipack 5Fr catheter set (ZL9726) opened to sterile field. 6:01:15 Tegaderm 4 x 4 (1626W) opened to sterile field. 6:01:29 SHEATH 6FR [place] (QMK468) opened to sterile field. 6:03:38 0.9% NaCl kvo I.V. was administered by Katy Ghotra RN; used for procedure; 6:04:08 Oxygen 100 FiO2 vent was administered by Katy Ghotra RN; used for procedure; 6:04:18 Lidocaine 2% 20ml vial added to field was administered by Charles Benjamin MD; for local anesthetic; 6:04:23 Diprivan 1% (Propofol) 40 mcg/kg/min I.V. was administered by Charles Benjamin MD; for sedation; infusing upon arrival to 6:04:24 Heparin Flush Bag (1000units/500ml NS) 2 bags added to field was administered by Charles Benjamin MD; used for procedure; 6:04:35 TUBING High Pressure Extension Tubing (Sourav) (TR6927M) opened to sterile field. 6:04:35 INFLATOR Merit BasixCompak (NQ9861) opened to sterile field. 6:04:36 BMW 300cm [place] 2 J wire (5414066G) opened to sterile field. 6:04:37 Quick Combo opened to sterile field. 6:04:44 Quick combo pads placed on patients chest and back. 6:06:14 Pt arrived to intubated, sedated on propofol drip. BINH to assess for EtCO2 d/t vent. 6:08:47 Procedure started. 6:08:50 Local anesthetic to right femoral artery with Lidocaine 2% by Charles Benjamin MD.INITIAL ACCESS ONLY 6:09:48 Zero performed for pressure channel P1 6:10:06 A 6 Fr Short sheath was inserted into the Right Femoral artery 6:10:14 A MULTIPACK JL 4.0 5Fr catheter was advanced over the wire and used for Left Coronary Angiography. 6:11:47 LCA angiography performed. 6:11:50 Injector settings: Ml/sec: 3, Volume: 6, 6:13:31 Catheter removed. 6:13:39 A MULTIPACK 3DRC 5Fr catheter was advanced over the wire and used for Right Coronary Angiography. 6:14:36 RCA angiography performed. 6:14:43 Injector settings: Ml/sec: 3, Volume: 6, 6:15:02 Catheter removed. 6:15:09 A MULTIPACK Pigtail 5 Fr catheter was advanced over the wire and used for LV Angiography. 6:16:58 LV hemodynamics recorded. 6:17:00 LV gram done using FLORES 6:17:03 Injector settings: Ml/sec: 5, Volume: 15, 6:23:11 EF : 35 % 6:27:38 Catheter removed. 6:27:39 Proceeding to intervention. 6:28:[address] Salguero; 6:28:56 SHEATH 5FR [place] (YWF700) opened to sterile field. 6:29:54 A 5 Fr sheath was inserted into the Right Femoral vein 6:31:[address] [facility] (307137) opened to sterile field. 6:31:17 Sheath upsized to a 8 Fr. 6:31:44 IABP 34cm balloon catheter ([id number]) opened to sterile field. 6:36:24 Heparin Drip (15555sctgo/250 D5W) 1000 units/hr I.V. drip was administered by Katy Ghotra RN; for anticoagulation; verified with Dr. Benjamin 6:40:21 34cc IABP inserted into the RFA . 6:40:23 Augmentation: 1:1 per physician. 6:43:45 Sheath removed intact; hemostasis achieved with Sheath sutured in place to the Right Femoral artery. 6:43:53 Sheath removed intact; hemostasis achieved with Sheath sutured in place to the Right Femoral vein. 6:43:59 Procedure ended.(Physican Out) 6:44:48 Fluoroscopy time 02.80 minutes. 6:44:54 Flurop Dose total: 633 6:44:54 Fluoroscopy dose: 633 mGy 6:48:34 Contrast amount:Isovue 300 66ml. 6:48:37 Sharps counted by scrub and verified by R.N. 6:48:39 Insertion/operative site no bleeding no hematoma. 6:48:58 Post Procedure Pulses reassessed and unchanged 6:49:06 Post procedure rhythm: unchanged. 6:49:09 Estimated blood loss: 5 ml 6:49:11 Post procedure instruction explained to patient.Patient verbalizes understanding. 6:49:13 Patient needs reinforcement of post procedure teaching. 6:49:32 Procedure type changed to Cath procedure, Diagnostic procedure, LHC, LHC w/Coronaries, Intra-Aortic Balloon Pump 6:49:33 Procedure and supply charges have been captured, reviewed, submitted and are correct. 6:49:38 Procedure Complication : No complications 6:49:40 Vital chart was stopped 6:49:41 See physician's report for complete and final results. 6:49:45 Report given to CVICU. 6:49:48 Patient transfered to CVICU with Bed. 6:49:52 Procedure ended. 6:49:52 Full Disclosure recording stopped 6:53:41 End room use (Document Last) Device Usage Item Name Manufacture Quantity Catalog Number [facility] Minimal Lot# / Charge Number Stock Stock Serial# Code ACIST Syringe Acist 1 46916 271372 471239 163228 20 (75659) [employer] Bag Decanter Microtek 1 2001S 875522 04272 334536 5 () Medical Inc. Medline Cath Medline 1 [id number] 115663 02791 907072 5 Pack ([id number]) DIAGNOSTIC WIRE [facility] 1 660102 331792 913303 143648 30 .035 260cm J wire (055320) ACIST Hand Acist 1 11109 471813 856519 000064 5 Control (71043) Medical [employer] Inc ACIST Manifold Acist 1 79340 916875 490298 720381 5 (39474) [employer] Inc DIAGNOSTIC Cardinal 1 OV3146 561033 47411 209127 30 Multipack 5Fr Health catheter set (LX7974) Tegaderm 4 x 4 3M 1 1626W 035119 766221 682295 5 (1626W) SHEATH 6FR Terumo 1 WXY112 384269 723608 977265 40 [place] (DII440) TUBING High Merit 1 [id number] 818756 32399 485536 10 Pressure Medical Extension Tubing (Benjamin) (HU3399G) INFLATOR Merit Merit 1 BB5658 789042 183238 610402 15 [facility] (AC2734) BMW 300cm Sahni 1 [id number] 819690 571806 791490 5 [place] 2 J Vascular wire (3448883X) Cuponomia 1 06119-034157 721231 254910 676279 5 MULTIPACK JL Cardinal 1 637056 5 4.0 5Fr Health catheter MULTIPACK 3DRC Cardinal 1 370306 5 5Fr catheter Health MULTIPACK Cardinal 1 357659 5 Pigtail 5 Fr Health catheter SHEATH 5FR Terumo 1 HOI885 547279 216154 573398 5 [place] (EZA396) SHEATH 8FR [facility] 1 242737 964838 104005 585509 5 Thomas (707920) IABP 34cm [facility] 1 2841-42-2923-01U 654182 346031 8[address] [facility] catheter (306258) ([id number]) Signature Audit [place] Stage Time Signature Unsigned Intra-Procedure 01/14/2019 Hayley Nowak 6:56:28 AM RT(R) Signatures Monitor : Hayley Nowak RT Signature : Date : Time : [address] [place] [address]
[2019-01-14 04:49] LABS: BASOPHILS 0.5 % (0-2); EOSINOPHILS 0.6 % (0-7); HEMATOCRIT 39.2 % (36.0-48.0); HEMOGLOBIN 12.4 g/dL (12-16); IMMATURE GRANULOCYTES 0.1 % (0-5); LYMPHOCYTES 62.8 % (15-50); MCH 28.9 pg (26.0-34.0); MCHC 31.6 g/dL (31.0-37.0); MCV 91.4 fL (80.0-100.0); MEAN PLATELET VOLUME 11.2 fL (7.4-10.4); MONOCYTES 4.8 % (2-11); NEUTROPHILS 31.2 % (40-80); RBC 4.29 10x6/uL (4.00-5.40); RDW 13.5 % (11.5-14.5); WBC 14.3 10x3/uL (4.8-10.8)
[2019-01-14 04:50] LABS: PLATELET COUNT 53 10x3/uL (130-400)
[2019-01-14 04:57] LABS: APTT 24.9 SECONDS (22.8-39.4); INR 1.11 (0.85-1.17); PROTIME 13.8 SECONDS (11.6-15.0)
[2019-01-14 05:04] LABS: ALBUMIN 3.3 g/dL (3.4-5.0); ALKALINE PHOSPHATASE 89 U/L (46-116); ALT (SGPT) 45 U/L (10-68); CALC OSMOLALITY 290 mosm/kg (275-300); CALCIUM 8.8 mg/dL (8.5-10.1); CARBON DIOXIDE 21.1 mmol/L (21.0-32.0); CHLORIDE - SERUM 103 mmol/L (98-107); CREATININE - SERUM 1.6 mg/dL (0.6-1.3); POTASSIUM - SERUM 3.3 mmol/L (3.5-5.1); PROTEIN - SERUM 8.4 g/dL (6.4-8.2); SODIUM 138 mmol/L (136-145); UREA NITROGEN 20 mg/dL (7-18); eGFR NON AFRICAN AMERICAN 36 mL/min (90-120)
[2019-01-14 05:05] LABS: GLUCOSE 313 mg/dL (74-106)
[2019-01-14 05:07] LABS: PLATELET ESTIMATE NORMAL; PLATELET MORPHOLOGY PLT CLUMPS PRESENT
[2019-01-14 05:12] LABS: CKMB 1.4 U/L (0.0-3.6); CREATINE KINASE 100 UL (21-215); TROPONIN-I 0.059 ng/mL (0.000-0.060)
--- NOTE | 2019-01-14 06:33 | NUR ---
0450- RADIOLOGY IN RM. 0453-O2 INCREASED TO 6LNC. 0456- MOVED FROM E16 TO T2. 0508-INTUBATED 7.5, 24 AT TEETH. 0548- TO GIFT SHOP ASSISTANT ON STRETCHER, ESCORTED BY GIFT SHOP ASSISTANT JASMEET.
[2019-01-14 07:12] LABS: APPEARANCE CLOUDY (CLEAR); BILIRUBIN NEGATIVE (NEGATIVE); COLOR YELLOW (YELLOW); GLUCOSE 250 mg/dL (NEGATIVE); KETONE NEGATIVE (NEGATIVE); NITRITE NEGATIVE (NEGATIVE); PROTEIN 2+ mg/dL (NEGATIVE); SPECIFIC GRAVITY 1.025 (1.005-1.020); UROBILINOGEN NORMAL (NORMAL)
[2019-01-14 07:13] LABS: RED CELLS - URINE 0-5 /hpf (0-5); WHITE CELLS - URINE 0-5 /hpf (0-5)
[2019-01-14 07:14] LABS: AMORPHOUS SEDIMENT >1+ /lpf (NONE SEEN); BACTERIA MODERATE /hpf (NONE SEEN); EPITHELIAL CELLS 25-50 /hpf (0-5)
--- NOTE | 2019-01-14 07:40 | NUR ---
REC'D VIA BED FROM BARK PRESS OPERATOR S/P Cardiac cath, sedated with propofol on vent. opens eyes to voice, karson. RT GROIN IABP IN PLACE. RT HAND IV INFILTRATED- DC'D.
--- NOTE | 2019-01-14 08:30 | NUR ---
MELONIE KEMP NOTIFIED OF K+ 3.3 W/FREQUENT PVC'S- ORDERS REC'D.
--- NOTE | 2019-01-14 09:30 | NUR ---
DR ROSALIE JALLOH, ORDERS REC'D. REMAINS EASILY AROUSABLE W/ VSS.
--- NOTE | 2019-01-14 09:45 | NUR ---
BP LOWER, PROPOFOL ON HOLD- OPENS EYES VOICE. CADENCE KEMP AND ROSALIE ON UNIT AND INFORMED OF THIS.
--- NOTE | 2019-01-14 10:35 | NUR ---
DR DOMÍNGUEZ ROUNDS- CHANGES TO SIMV, PROPOFOL TO 15 MCG.
--- NOTE | 2019-01-14 11:00 | NUR ---
REASSESSED- SEE FLOWSHEET. FAMILY AT BEDSIDE.
--- NOTE | 2019-01-14 13:00 | NUR ---
FAMILY AT BEDSIDE. WRITING NOTES W/EASE- WANTS IABP OUT AND OETT/OGT OUT. INSTRUCTED RE; DZ PROCESS.
[2019-01-14 13:23] LABS: HEMATOCRIT 33.7 % (36.0-48.0); MCH 28.6 pg (26.0-34.0); MCHC 32.6 g/dL (31.0-37.0); MEAN PLATELET VOLUME 9.7 fL (7.4-10.4); RBC 3.84 10x6/uL (4.00-5.40); RDW 13.3 % (11.5-14.5)
[2019-01-14 13:24] LABS: MCV 87.8 fL (80.0-100.0); WBC 8.7 10x3/uL (4.8-10.8)
--- NOTE | 2019-01-14 13:50 | NUR ---
OVER LAST 45 MINUTES BECAME INCREASINGLY ANXIOUS REQUIRING CONSTANT ATTENTION. PROPOFOL TITRATED UP TO MAX 70 MCG THEN DOWN TO 40 MCG W/ PT COMFORTABLY SEDATED.
[2019-01-14 14:14] LABS: INR 1.1 (0.85-1.17); PROTIME 13.7 SECONDS (11.6-15.0)
[2019-01-14 14:18] LABS: APTT 75.7 SECONDS (22.8-39.4)
--- NOTE | 2019-01-14 14:30 | NUR ---
EYES CLOSED/RESP UNLABORED, OPENS EYES TO VERBAL. VSS.
--- NOTE | 2019-01-14 15:00 | NUR ---
REASSESSED. VSS, OPENS EYES TO VERBAL/ GLEZ @ REQUEST.
--- NOTE | 2019-01-14 16:25 | NUR ---
EVENTS 1545- NOW: BP DROPS TO 70s/40s W/ MAP 50s. DIFFICULT TO AROUSE, PROPOFOL GTT PAUSED, PREVIOUSLY STARTED NTG GTT OFF. 12 LEAD EKG DONE, DEMETRIO GTT READY IF NEEDED, BEGINS TO HAVE FREQU PVCs- BIGEMINAL/ TRIGEMINAL @ TIMES. K+ & Mg+ LEVELS DRAWN. OPENS EYES TO VERBAL W/ TOUCH. BP 100s/50s W/ MAP 60s AND AUGMENTED MAP 80s. WILL CONT TO MONITOR. PROPOFOL REMAINS ON HOLD.
[2019-01-14 16:47] LABS: MAGNESIUM - SERUM 1.7 mg/dL (1.8-2.4)
[2019-01-14 16:50] LABS: POTASSIUM - SERUM 4.3 mmol/L (3.5-5.1)
--- NOTE | 2019-01-14 17:00 | NUR ---
REPOSITIONED, OPENS EYES TO VERBAL. AMARIS @ REQUEST. VSS
--- NOTE | 2019-01-14 19:15 | NUR ---
REPORT REC'D AND CARE ASSUMED, REC'D PT ON VENT VIA 7.5 ETT TAPED @ 24CM LIPLINE SEE FLOWSHEET FOR VENT SETTINGS, PT AWAKENS TO VERBAL STIMULI, FOLLOWING COMMANDS, AND ATTEMPTING TO COMMUNICATE WITH HAND SIGNALS, RIGHT A/C PIV WITH HEPARIN @ 1000 UNITS/HR, NITROGLYCERIN ON HOLD, OGT TAPED SECURELY TO ETT, PLACEMENT VERIFIED VIA SM AIR BOLUS AUSCULTATED OVER EPIGASTRIM, OGT TO LIWS WITH YELLOW RETURN, ABD SOFT, BS HYPOACTIVE, RIGHT GROIN SHEATH AND IABP, IABP 1:1 WITH EKG TRIGGER, CM-SR @ 81, SITE SOFT, NO BLEEDING OR HEMATOMA NOTED, DIPRIVAN INFUSING VIA VENOUS SHEATH @ 10MCG/KG/MIN OR 4.8CC/HR, MILLER PATENT DRAINING DARK YELLOW URINE, LOWER EXT'S COOL TO TOUCH, BILAT SCDS INTACT, PPP, BILAT SOFT WRIST RESTRAINTS INTACT, BED IN LOW POSITION, 1:1 NURSE @ DOORWAY.
--- NOTE | 2019-01-14 20:30 | NUR ---
AUGMENTED BP 145, NITROGLYCERIN RESUMED @ 10MCG/MIN OR 3CC ORDERED, WILL MONITOR CLOSELY FOR CHANGES.
--- NOTE | 2019-01-14 21:08 | NUR ---
PT WRITING NOTES TO COMMUNICATE, DENIES PAIN AT THIS TIME, BP STABLE, CM-SR, WILL MONITOR CLOSELY FOR CHANGES.
--- NOTE | 2019-01-14 21:30 | NUR ---
EVENING MEDS GIVEN, PT RESTING AT INTERVALS, VSS, BP STABLE, NO VISITORS IN AT THIS TIME.
--- NOTE | 2019-01-14 23:20 | NUR ---
REASSESSMENT COMPLETED, PT CONTINUES TO WAKEN WITH STIMULI AND FOLLOW COMMANDS, CM-SR @ 79, BP PER IABP 93/68, NITROGLYCERIN HELD AT THIS TIME, PT RESTING ON VENT, NO DISTRESS NOTED, RIGHT GROIN SITE CDI, NO BLEEDING OR HEMATOMA NOTED, LOWER EXTS COOL, PPP.
[2019-01-15] VITALS (59 sets, daily range): BP systolic 63–174; BP diastolic 48–97
--- NOTE | 2019-01-15 00:15 | NUR ---
RT AT BS FOR BREATHING TX AND ORAL CARE, PT AGITATED WITH ORAL CARE AND ATTEMPTING TO SIT UP IN BED DESPITE INSTRUCTIONS NOT TO, DIPRIVAN INCREASED FOR COMFORT AND NITROGLYCERIN RESUMED.
--- NOTE | 2019-01-15 01:30 | NUR ---
ROUTINE MEDS GIVEN, PT REPOSITIONED FOR COMFORT, VSS.
--- NOTE | 2019-01-15 03:30 | NUR ---
PT RESTLESS IN BED, BP ELEVATED, HIBICLENS BATH AND COMPLETE LINEN CHANGE PROVIDED, SCDS REMOVED FOR A BREAK, ORAL CARE PROVIDED, PT TOLERATED WELL WITH EXPLANATION, WRITING NOTES AT THIS TIME, EARRINGS REMOVED FROM EARS PER PT REQUEST AND PLACED IN FRONT POCKET OF HANDBAG, PT REPOSITIONED UP IN BED FOR COMFORT, ARMS ELEVATED ON PILLOWS.
--- NOTE | 2019-01-15 05:00 | NUR ---
PT RESTING EYES CLOSED ON VENT, BP STABLE, LAB AT FOR AM LAB DRAW, NO VISITORS IN AT THIS TIME.
[2019-01-15 06:01] LABS: BASOPHILS 0.2 % (0-2); EOSINOPHILS 0.4 % (0-7); HEMATOCRIT 31.2 % (36.0-48.0); IMMATURE GRANULOCYTES 0.2 % (0-5); LYMPHOCYTES 31.5 % (15-50); MCH 28.2 pg (26.0-34.0); MCHC 32.1 g/dL (31.0-37.0); MCV 88.1 fL (80.0-100.0); MONOCYTES 10.7 % (2-11); PLATELET COUNT 217 10x3/uL (130-400); RBC 3.54 10x6/uL (4.00-5.40); RDW 13.3 % (11.5-14.5)
[2019-01-15 06:06] LABS: WBC 5.6 10x3/uL (4.8-10.8)
[2019-01-15 06:38] LABS: ALBUMIN 2.8 g/dL (3.4-5.0); BILIRUBIN - TOTAL 0.87 mg/dL (0.2-1.3); CALCIUM 8.4 mg/dL (8.5-10.1); CARBON DIOXIDE 25.7 mmol/L (21.0-32.0); POTASSIUM - SERUM 3.7 mmol/L (3.5-5.1)
[2019-01-15 06:40] LABS: CREATININE - SERUM 0.9 mg/dL (0.6-1.3)
[2019-01-15 06:42] LABS: TROPONIN-I 4.135 ng/mL (0.000-0.060)
--- NOTE | 2019-01-15 13:36 | NUR ---
0700: SEE FLOWSHEET FOR ASSESSMENT. AROUSES EASILY TO VERBAL STIMULI. COMMUNICATES BY WRITING NOTES. NO ACUTE DISTRESS NOTED. 0830: SIMV DECREASED TO 8. 0945: SIMV DECREASED TO 6. 1100: PLACED ON CPAP. 1230: CHRISTIE WILDER'Suze. 1255: EXTUBATED AND PLACED ON O2 VIA NC @ 4 LPM. 1310: FAMILY AT BEDSIDE. REQUESTING TO TALK TO REGARDING POSSIBLE TRANSFER TO ANOTHER FACILITY AND APPEARS UPSETS ABOUT CIRCUMSTANCES OF ADMISSION. 1315: DR. KEMP NOTIFIED OF FAMILY CONCERNS. STATED HE WOULD BE BACK UP TO TALK TO THEM. DR. DUNHAM AT BEDSIDE DISCUSSING ANESTHESIA WITH PATIENT AND FAMILY.
--- NOTE | 2019-01-15 17:57 | NUR ---
1730: HIBICLENS BATH DONE AND LINENS CHANGED. 1748: CONDITION UPDATE GIVEN TO DR. WIGIGNS BY PHONE. NEW ORDERS REC'D. 1755: IABP CHANGED TO 1:2 AND NTG GTT INCREASED TO 10CC/HR (33.33MCG/MIN)
--- NOTE | 2019-01-15 18:58 | NUR ---
INFORMED BY DAY SHIFT RN, MEGAN TO MAINTAIN NITROGLYCERIN AT A SET RATE OF 10 ML/HR PER DR. WIGGINS'S ORDERS.
--- NOTE | 2019-01-15 19:01 | NUR ---
REPORT RECEIVED, SHIFT ASSESSMENT COMPLETED PER FLOW SHEET. AAOX4. PPP. RT GROIN SHEATH AND IABP SITE NOTED, NO HEMATOMA, SOFT TO PALPATION, NO BLEEDING, HEPARIN DRIP INFUSING AT 10 ML/HR AND NITROGLYCERIN DRIP AT 10 ML/HR VIA SHEATH. IABP 1:2 WITH EKG TRIGGER. MILLER CATHETER TO GRAVITY SECURED. DENIES PAIN OR NEEDS. SEE FLOW SHEET FOR COMPLETE ASSESSMENT. WILL CONTINUE TO MONITOR. CALL LIGHT WITHIN REACH.
--- NOTE | 2019-01-15 20:00 | NUR ---
SIGNIFICANT OTHER AT BEDSIDE, UPDATE GIVEN, QUESTIONS ANSWERED. PATIENT DENIES NEEDS. CALL LIGHT WITHIN REACH.
--- NOTE | 2019-01-15 20:38 | NUR ---
CALLED AND SPOKE TO DR. WIGGINS REGARDING HIGH BP, UPDATE GIVEN ON PATIENT STATUS. ORDERS TO MAINTAIN NITROGLYCERIN AT SET RATE OF 10 ML/HR.
--- NOTE | 2019-01-15 21:28 | NUR ---
UNALBLE TO OBTAIN BENADRYL, PHARMACY NOT HERE. SPOKE TO [employer] SUPERVISOR, SHE INFORMED ME SHE WILL SEND IT TO UNIT. WILL WAIT FOR AVAILABILITY TO ADMINSTER.
--- NOTE | 2019-01-15 23:01 | NUR ---
REASSESSMENT COMPLETED PER FLOW SHEET, SEE FOR DETAILS. NO ACUTE CHANGES NOTED. NO HEMATOMA OR BLEEDING NOTED FROM RT GROIN IABP SITE, SOFT TO PALPATION. DENIES PAIN. WILL CONTINUE TO MONITOR. CALL LIGHT WITHIN REACH.
[2019-01-16] VITALS (82 sets, daily range): BP systolic 108–159; BP diastolic 46–72; BMI 31.3
[2019-01-16 00:47] LABS: HEMATOCRIT 29.9 % (36.0-48.0); HEMOGLOBIN 9.7 g/dL (12-16); MCH 28.4 pg (26.0-34.0); MCHC 32.4 g/dL (31.0-37.0); MCV 87.7 fL (80.0-100.0); MEAN PLATELET VOLUME 9.8 fL (7.4-10.4); RBC 3.41 10x6/uL (4.00-5.40); RDW 13.2 % (11.5-14.5); WBC 6.4 10x3/uL (4.8-10.8)
--- NOTE | 2019-01-16 01:00 | NUR ---
RESTING, NO ACUTE DISTRESS NOTED. DENIES NEEDS. WILL CONTINUE TO MONITOR.
--- NOTE | 2019-01-16 03:01 | NUR ---
REASSESSMENT COMPLETED PER FLOW SHEET, SEE FOR DETAILS. RT GROIN SOFT TO PALPATION, NO BLEEDING, NO HEMATOMA. DENIES PAIN OR NEEDS. CALL LIGHT WITHIN REACH. WILL CONTINUE TO MONITOR.
[2019-01-16 04:31] LABS: ANION GAP 16.2 mmol/L (8-16); CARBON DIOXIDE 23.5 mmol/L (21.0-32.0); CREATININE - SERUM 0.9 mg/dL (0.6-1.3); MAGNESIUM - SERUM 1.8 mg/dL (1.8-2.4); POTASSIUM - SERUM 3.7 mmol/L (3.5-5.1)
--- NOTE | 2019-01-16 05:00 | NUR ---
COMPLETE BED BATH GIVEN. COMPLETE BED LINEN CHANGE PROVIDED. TOLERATED WELL.
--- NOTE | 2019-01-16 05:30 | NUR ---
SPOKE TO DR. PINA, NEW ORDERS RECEIVED, OK TO GIVE PREOP MEDS NOW.
--- NOTE | 2019-01-16 05:30 | NUR ---
CALLED AND SPOKE TO DR. PINA, NEW ORDERS RECEIVED, AND TO GIVE PREOP MEDS NOW.
[2019-01-16 05:31] LABS: BASOPHILS 0.1 % (0-2); EOSINOPHILS 0.4 % (0-7); HEMATOCRIT 29.2 % (36.0-48.0); HEMOGLOBIN 9.4 g/dL (12-16); IMMATURE GRANULOCYTES 0.3 % (0-5); LYMPHOCYTES 17.2 % (15-50); MCH 28.2 pg (26.0-34.0); MCHC 32.2 g/dL (31.0-37.0); MCV 87.7 fL (80.0-100.0); MEAN PLATELET VOLUME 10.5 fL (7.4-10.4); MONOCYTES 11.8 % (2-11); NEUTROPHILS 70.2 % (40-80); PLATELET COUNT 195 10x3/uL (130-400); RBC 3.33 10x6/uL (4.00-5.40); RDW 13.1 % (11.5-14.5); WBC 6.7 10x3/uL (4.8-10.8)
--- NOTE | 2019-01-16 06:02 | NUR ---
CALLED AND SPOKE TO KINA IN PHARMACY TO OBTAIN ZINACEF FOR PREOP.
--- NOTE | 2019-01-16 06:46 | NUR ---
OR TEAM HERE TO TAKE PATIENT DOWN TO OR FOR AM SURGERY.
--- NOTE | 2019-01-16 11:37 | NUR ---
PERSONAL CELL PHONE IN BED WITH PATIENT TAKEN TO CVICU GIVEN TO CVICU NURSE
[2019-01-16 12:51] LABS: INR 1.76 (0.85-1.17); PROTIME 19.9 SECONDS (11.6-15.0)
--- NOTE | 2019-01-16 14:00 | NUR ---
ARRIVED TO UNIT [facility] 1340 VIA BED FROM OR. ON VENT A/C R-12, TV 550, [id number]%, PEEP 5. 8.0ETT 21 AT THE LIP. ON BALLOON PUMP 1:1 TO RIGHT GROIN. SWANGANZ TO RIGHT IJ. MIDSTERNAL INCISION WITH DRESSING CDI. SUBSTERNAL DRESSING WITH CT X 2 CONNECTED TO 20CM SUCTION. L- SIGRID DRAIN. RIGHT LEG HARVEST WRAPPRED IN COBAN DRESSING FROM GROIN TO ANKLE. R-RADIAL ERYN IN SECURED IN PLACE WITH WRIST PROTECTOR. MILLER IN PLACE WITH CONCENTRATED YELLOW URINE NOTED. CONNECTED TO ICU MONITORS. WILL CONTINUE TO MONITOR CLOSELY.
--- NOTE | 2019-01-16 16:11 | NUR ---
INSULIN DRIP INITIATED AT THIS TIME PER PROTOCOL.
--- NOTE | 2019-01-16 16:30 | NUR ---
PROPOFOL DRIP INITIATED PER DR. MAURICIO ORDERS. WANTS PT TO BE ON LIGHT SEDATION.
--- NOTE | 2019-01-16 18:21 | NUR ---
PRIMACOR DECREASED TO 0.375MCG/KG/MIN PER DR. WIGGINS.
--- NOTE | 2019-01-16 19:07 | NUR ---
REPORT RECEIVED, SHIFT ASSESSMENT COMPLETED PER FLOW SHEET, SEE FOR DETAILS. PPP. RT GROIN IABP SITE CLEAN, NO HEMATOMA, OR BLEEDING NOTED. INFORMED BY DAY SHIFT RN DIMA THAT DR. WIGGINS IS OK WITH NITRO DRIP AND CLEVIPREX DRIP INFUSING AT THE SAME TIME AND OK TO TITRATE NITRO DRIP, AND TO KEEP PATIENT SEDATED WHILE INTUBATED. SEE FLOW SHEET FOR COMPLETE ASSESSMENT. WILL CONTINUE TO MONITOR.
--- NOTE | 2019-01-16 19:40 | NUR ---
INFORMED BY DAY SHIFT RN DIMA TO DECREASE AMIODARONE TO 0.5 MG/MIN PER DR. WIGGINS'S ORDERS, AMIODARONE DECREASED AT THIS TIME.
--- NOTE | 2019-01-16 19:41 | NUR ---
DR. WIGGINS NOTIFIED OF ABGS. ORDERED 1 AMP BICARB AT THIS TIME AND 20MEQ KCL TO BE INFUSED OVER 1HR.
--- NOTE | 2019-01-16 19:44 | NUR ---
1 AMP OF BICARB AND 20 MEQ KCL INFUSING PER DR. WIGGINS'S ORDERS.
--- NOTE | 2019-01-16 20:30 | NUR ---
INFORMED BY DAY SHIFT RN OF DR. WIGGINS'S ORDERS TO GIVE 1 UNIT OF PLATELETS. 1 UNIT OF PLATELETS INFUSING NOW. WILL CONTINUE TO MONITOR.
--- NOTE | 2019-01-16 20:45 | NUR ---
PLATELETS DONE INFUSING, NO ACUTE REACTIONS NOTED. WILL CONTINUE TO MONITOR.
--- NOTE | 2019-01-16 20:50 | NUR ---
KCL DONE INFUSING. CALLED RT TO COME DRAW ABG PER DR. WIGGINS'S ORDERS INFORMED BY DAY SHIFT RN DIMA.
--- NOTE | 2019-01-16 21:04 | NUR ---
BP 108/55, NITRO DRIP DECREASED TO 35 MCG/MIN.
--- NOTE | 2019-01-16 21:30 | NUR ---
CALLED AND SPOKE TO DR. WIGGINS, UPDATE GIVEN ON PATIENT STATUS, VITAL SIGNS, IV DRIPS, URINE OUTPUT, AND IABP. NEW ORDERS RECEIVED TO CHANGE IABP SETTING TO 1:2, GIVE 20 MEQ OF KCL OVER AND HOUR AND TO OBTAIN K+ LEVEL ONE HOUR AFTER INFUSION DONE. PER HIS ORDERS TREAT POTASSIUM PRN PER PROTOCOL AND IF K+ <3.5 GIVE 20 MEQ AND REASSESS AFTER AN HOUR.
--- NOTE | 2019-01-16 23:00 | NUR ---
REASSESSMENT COMPLETED PER FLOW SHEET, SEE FOR DETAILS. NO ACUTE CHANGES NOTED. PPP. RT GROIN SOFT TO PALPATION, NO HEMATOMA OR BLEEDING NOTED. ORAL CARE PROVIDED. WILL CONTINUE TO MONITOR.
[2019-01-17] VITALS (98 sets, daily range): BP systolic 109–146; BP diastolic 50–69
--- NOTE | 2019-01-17 00:11 | NUR ---
PATIENT APPEARS AGITATED, VENT ALARMING, REORIENTATION PROVIDED, INFORMED HER OF IMPORTANCE OF STAYING CALM AND NOT TO PULL AT LINES/TUBING, UNABLE TO KEEP CALM, DIPRIVAN INCREASED TO 20 MCG/KG/MIN. WILL CONTINUE TO MONITOR.
--- NOTE | 2019-01-17 02:16 | NUR ---
AGITATED, UNABLE TO KEEP CALM, VENT ALARMING. TITRATING DIPRIVAN PER DOCTOR'S ORDERS, SEE FLOW SHEET FOR DETAILS.
--- NOTE | 2019-01-17 03:00 | NUR ---
REASSESSMENT COMPLETED PER FLOW SHEET, SEE FOR DETAILS. PPP. NO ACUTE CHANGES NOTED. WILL CONTINUE TO MONITOR. RT GROIN IABP SITE CLEAN, SOFT, NO HEMATOMA OR BLEEDING NOTED.
--- NOTE | 2019-01-17 04:36 | NUR ---
ABG RESULTS REVIEWED, K 3.5, 10 MEQ INFUSING PER PROTOCOL.
--- NOTE | 2019-01-17 04:45 | NUR ---
XR AT BEDSIDE FOR AM CHEST XR.
--- NOTE | 2019-01-17 06:00 | NUR ---
SUBSTERNAL DRESSING CHANGED. BED BATH GIVEN. TOLERATED WELL. WILL CONTINUE TO MONITOR.
[2019-01-17 06:08] LABS: HEMATOCRIT 28.1 % (36.0-48.0); HEMOGLOBIN 9.4 g/dL (12-16); MCH 28.7 pg (26.0-34.0); MCHC 33.5 g/dL (31.0-37.0); MCV 85.9 fL (80.0-100.0); RBC 3.27 10x6/uL (4.00-5.40); RDW 13.8 % (11.5-14.5)
[2019-01-17 06:25] LABS: ALBUMIN 2.6 g/dL (3.4-5.0); ANION GAP 13.4 mmol/L (8-16); BILIRUBIN - TOTAL 1.63 mg/dL (0.2-1.3); CALCIUM 7.2 mg/dL (8.5-10.1); CARBON DIOXIDE 24.2 mmol/L (21.0-32.0); CREATININE - SERUM 0.9 mg/dL (0.6-1.3); MAGNESIUM - SERUM 2.2 mg/dL (1.8-2.4); PHOSPHOROUS 1.8 mg/dL (2.5-4.9); POTASSIUM - SERUM 3.6 mmol/L (3.5-5.1); PROTEIN - SERUM 5.8 g/dL (6.4-8.2)
[2019-01-17 06:31] LABS: WBC 10.8 10x3/uL (4.8-10.8)
--- NOTE | 2019-01-17 08:38 | NUR ---
0700 PT RECIEVED SEDATED ON VENT, R IJ SWAN LOCKED AT 50CM, PLASMALYTE, ZINACEF, CLEVIPREX, NITRO, PROPOFOL, AMIO, AND MILRINONE INFUSING, R RADIAL A LINE ZEROED, GOOD WAVEFORM, WRIST PROTECTOR IN PLACE, MIDSTERNAL AND SUBSTERNAL DRESSINGS CDI WITH SUBSTERNAL TPM WIRE COILED, CTX2, SIGRID DRAIN COMPRESSED, CT TO 20CM SUCTION NO AIR LEAK NOTED, R GROIN IAPB 1:2 ALL PULSES EASILY PALPABLE, SITE SHOWS NO SIGNS OF BLEEDING, ALARMS SET, RLE HARVEST SITES WITH COBAN FROM GROIN TO ANKLE, CRITICORE DRAINING YELLOW URINE, PT LIGHTLY SEDATED AND ABLE TO BE AWAKENED TO FOLLOW COMMANDS 0730 KCL AND ABT PER EMAR 0800 DR WIGGINS IN ROOM, IAPB PLACED ON STANDBY AND REMOVED BY DR WIGGINS, PRESSURE HELD THEN FEMSTOP APPLIED APPROX 0820 PULSE EASILY PALP AND DOPPLERED WILL RELEASE PRESSURE ON FEMSTOP PER PROTOCOL, NO SIGNS OF BLEEDING, SITE SOFT, PULSE EASILY DOPPLERED. AM PO MEDS HELD PER DR WIGGINS AND CONTINUING IV AMIODARONE. CONTINUES 1:1
--- NOTE | 2019-01-17 10:59 | NUR ---
1015 RATE CHANGED TO SIMV 6, HR AND BP ELEVATING, DR DE DIOS NOTIFIED TITRATING GTTS PER ORDERS 1040 DR WIGGINS NOTIFIED OF HR AND BP ELEVATED SINCE CHANGING RATE ON VENT, ORDERS TO STOP MILRINONE AND GIVE 2.5 LOPRESSOR IV 1103 ON MINDRAY MONITORSYSTEM RUN OF HR 160 SUNIS TACH UNSUSTAINED THEN HR 90S, DR WIGGINS IN UNIT AND NOTIFIED, NO NEW ORDERS
--- NOTE | 2019-01-17 11:21 | OP ---
PATIENT NAME: CESAR ST MEDICAL RECORD: [id number] :70 LOCATION:D.CVI D.CV03 ADMISSION DATE:01/14/19 SURGEON: MATT WIGGINS MD DATE OF OPERATION: 01/16/2019 SURGEON: Matt Wiggins MD METAL TANK BUILDER: Familia Li. OPERATIONS PERFORMED: 1. Urgent coronary artery bypass graft times 3 (left internal mammary artery to LAD, reverse saphenous vein graft from aorta to obtuse marginal and aorta to posterolateral branch of the right coronary artery). 2. Endoscopic saphenous vein harvest. PREOPERATIVE DIAGNOSES: Acute myocardial infarction, multivessel coronary disease, ischemic cardiomyopathy, and flash pulmonary edema. POSTOPERATIVE DIAGNOSIS: Acute myocardial infarction, multivessel coronary disease, ischemic cardiomyopathy, and flash pulmonary edema. ANESTHESIA: General endotracheal anesthesia. ESTIMATED BLOOD LOSS: Total cardiopulmonary bypass with Cell Saver retransfusion, 2 packed red blood cells. COMPLICATIONS: None. SPECIMENS: None. CONDITION: Critical. DISPOSITION: CV ICU. OPERATIVE FINDINGS: 1. Transesophageal echocardiography revealed about a 20% ejection fraction, slightly improved after reducing the systemic pressure, this was improved, particularly the septal contractility after coronary bypass graft on low-dose Primacor. 2. Small greater saphenous vein harvested from the right lower extremity. 3. Good quality left internal mammary artery. The LAD was a severely diseased 1.5 mm vessel with anastomosis and plaque. 4. The obtuse marginal was a severely diseased bifurcating 1.5 mm vessel. 5. The posterolateral branch right coronary artery was larger than the posterior descending artery, it was a 2.0 mm vessel again with severe disease. OPERATIVE INDICATIONS: Acute myocardial infarction and coronary artery disease. OPERATIVE SUMMARY IN DETAIL: The patient was brought to the operating suite. General anesthesia was obtained. The patient was prepped and draped. Greater saphenous vein harvested from right lower extremity utilizing endoscopic technique. Side branches were divided with electrocautery. The vessel was ligated proximally and distally and 1 separate incision was made to divide a side branch, vessel was removed. Side branches were tied and then sites were OPERATIVE REPORT [id number] CESAR ST oversewn. Leg was irrigated and closed in 2 layers. Median sternotomy incision was made. Subcutaneous tissue divided with electrocautery. The sternum was divided with a saw. The left hemisternum was elevated. Left pleural cavity was entered. Left internal mammary vein was taken as a pedicle graft. Sternal retractor was placed. Pericardium was opened. Heparin was given. Aorta was cannulated. Dual-stage venous cannula was inserted. The internal mammary was clipped distally and made ready for anastomosis. Activated clotting time was appropriately elevated and the patient was placed on cardiopulmonary bypass. Sites for distal anastomoses were selected. The anteroapical portion of the heart was dyskinetic. The retrograde cardioplegia cannula was inserted. The patient was cooled. Antegrade cardioplegic cannula was inserted. Crossclamp was placed. Cardioplegia was given antegrade and retrograde. This was repeated at 15-minute intervals during the crossclamp time. Distal anastomosis was performed in standard technique. Proximal anastomosis with single cross-clamp technique. Aortic root was de-aired. Proximal anastomosis was tied down. Vein graft flow after the vein grafts were de-aired. Proximal and distal anastomotic sites inspected for bleeding. Single suture in the distal internal mammary one of the proximal anastomoses resumed a spontaneous rhythm. Left chest was evacuated and irrigated. A drain was placed in the mediastinum. Single ventricular pacing wires was placed. The patient was fully rewarmed, weaned from cardiopulmonary bypass and was stable. The patient was decannulated. Retrograde cannula site was oversewn. Aortic cannula site was oversewn with a nonpledgeted Prolene. Thorough irrigation was undertaken. Protamine was given. The grafts lay appropriately. The patient was stable and the pericardial fat was loosely reapproximated. The internal mammary harvest site was inspected for bleeding. Sternum was closed with wires. Fascia was closed. Subcutaneous tissue was closed. Skin was closed. Dermabond was placed. The needle and sponge counts reported as correct The patient was taken to the ICU in stable condition. TRANSINT:[id number] Voice Confirmation ID: [id number] DOCUMENT ID: [id number] MATT WIGGINS MD at 1121 CC: DARLENE KEMP M.D. and SUNSHINE KING [id number] DICTATION DATE: 01/16/19 1845 LUMBER TALLIER: 01/16/19 4931 ADM IN [place] [address] [place] [address]
--- NOTE | 2019-01-17 11:50 | NUR ---
DR WIGGINS AWARE OF PTS BP 140S, REPEAT ORDER FOR 2.5 LOPRESSOR, PT ATTEMPTING TO TALK, GIVEN WRITING SUPPLIES AND WRITING IS ILLEGIBLE, DISCUSSED PLANS TO WEAN VENT AND PT NODS AND CLOSES EYES
--- NOTE | 2019-01-17 11:56 | NUR ---
NOT TREATING K PER DR WIGGINS
--- NOTE | 2019-01-17 12:29 | NUR ---
ANNE-MARIE PULLED BACK TO 48CM BY DR WIGGINS
--- NOTE | 2019-01-17 14:37 | TEE ---
PATIENT:CESAR ST MEDICAL RECORD: [id number] LOCATION:[place] [address] AGE OF PATIENT: 48 ADMISSION DATE: 01/14/19 SEX: F REFERRING PHYSICIAN: INTERPRETING PHYSICIAN: JULIANN BOGGS MD TRANSESOPHAGEAL ECHOCARDIOGRAM Date: 01/16/19 LOPEZ CHARGE Y INDICATIONS: CABG PREMEDICATIONS: PATIENT'S RESPONSE PROCEDURE DOPPLER MEASUREMENTS: LVIT LA PA 115 RA LVOT 79 RVOT 90 Asc. Ao 121 AV Gradient Peak 5.90 AV Mean 2.72 AV Area 1.7 MV Gradient Peak 8.12 MV Mean 2.20 MV Area INTERPRETATION: LVd: 4.6 cm LVs: 3.5 cm Doppler: 2-D: COLOR FLOW DOPPLER NORMAL SALINE STUDY: MISCELLANOUS: DIAGNOSIS: PLAN: Shrinking Machine Operator:Benny Benjamin Recreational Programs Director: Richi JIMENEZ COMMENTS: DATE OF SERVICE: 01/16/2019 PROCEDURE: Transesophageal echo evaluation of valvular structures during bypass surgery. FINDINGS: 1. Left ventricular chamber size is dilated. Left ventricular systolic function is markedly reduced, overall ejection fraction in the 20-25% range. 2. Left atrium, right atrium and right ventricular chamber sizes are all mildly TRANSESOPHAGEAL ECHOCARDIOGRAM REPORT [id number] [address]ON[address] ST. 3. Valvular structures have normal structure and motion. 4. Doppler interrogation only reveals trace mitral regurgitation, trace tricuspid regurgitation, no other valvular insufficiency or stenosis. 5. No evidence of pericardial effusion or left ventricular thrombus. TRANSINT:[id number] Voice Confirmation ID: [id number] DOCUMENT ID: [id number] at 1437 CC: [id number] DICTATION DATE: 01/16/19 1548 MANAGER FOOD BEVERAGE: 01/17/19 0536 ADM IN [facility] [address] [place] [address]
--- NOTE | 2019-01-17 15:42 | NUR ---
ALYSON CALLED TO DR WIGGINS WHO DEFERRED TO DR DE DIOS, RT NOTIFYING DR DE DIOS OF ALYSON, NIF AND VITAL
--- NOTE | 2019-01-17 15:53 | OP ---
PATIENT NAME: CESAR ST MEDICAL RECORD: [id number] :70 LOCATION:[facility] Suze[facility]renaCV03 ADMISSION DATE:01/14/19 SURGEON: AVINASH WIGGINS MD DATE OF OPERATION: 01/17/2019 PROCEDURE PERFORMED: Percutaneous removal of right femoral intraaortic balloon pump. INDICATION: Acute myocardial infarction. DESCRIPTION OF PROCEDURE: With the patient in the intensive care unit, sedated with a heart rate, blood pressure, and pulse oximetry monitor the sutures holding the balloon pump and the venous sheath were removed. Venous sheath was removed. Then, the intraaortic balloon pump was turned off, removed intact with no apparent complications, direct pressure was held for 15 minutes and then a FemoStop was used with a good palpable right dorsalis pedis pulse. TRANSINT:[id number] Voice Confirmation ID: [id number] DOCUMENT ID: [id number] AVINASH WIGGINS MD at 1553 CC: [id number] DICTATION DATE: 01/17/19 1154 DENTAL INSTRUCTOR: 01/17/19 1428 ADM IN [facility] [address] [place] [address]
--- NOTE | 2019-01-17 16:39 | NUR ---
PTS SISTER CALLED FOR UPDATE, STATED THAT PT DOES NOT HAVE SECURITY CODE SET UP SO I CANNOT GIVE INFORMATION VIA TELEPHONE, PTS SISTER STATED SHE WAS UNABLE TO COME VISIT THEN HUNG UP TELEPHONE, PRINCIPAL HARDWARE ARCHITECT NOTIFIED
--- NOTE | 2019-01-17 16:59 | NUR ---
PT ROOMMATE HERE FOR VISITIATION, ALSO UNABLE TO READ PTS WRITING, PT AGITATED, PAGED DR DE DIOS WITH ORDERS TO RESTART PROPOFOL FOR THE NIGHT, SIMV RATE 8 PS15, VIBHA WITH RT NOTIFIED
--- NOTE | 2019-01-17 18:47 | NUR ---
ORAL CARE AND REPOSITIONING DONE [id number] AND NEEDED THROUGHOUT SHIFT
[2019-01-18] VITALS (73 sets, daily range): BP systolic 112–150; BP diastolic 54–83
[2019-01-18 06:00] LABS: HEMATOCRIT 26.9 % (36.0-48.0); HEMOGLOBIN 8.8 g/dL (12-16); MCH 28.6 pg (26.0-34.0); MCHC 32.7 g/dL (31.0-37.0); MCV 87.3 fL (80.0-100.0); MEAN PLATELET VOLUME 10.4 fL (7.4-10.4); RBC 3.08 10x6/uL (4.00-5.40); RDW 14.2 % (11.5-14.5); WBC 10.6 10x3/uL (4.8-10.8)
[2019-01-18 06:20] LABS: ALBUMIN 2.3 g/dL (3.4-5.0); ALKALINE PHOSPHATASE 38 U/L (46-116); ALT (SGPT) 57 U/L (10-68); BILIRUBIN - TOTAL 1.18 mg/dL (0.2-1.3); CALCIUM 7.7 mg/dL (8.5-10.1); CARBON DIOXIDE 25.6 mmol/L (21.0-32.0); CHLORIDE - SERUM 108 mmol/L (98-107); CREATININE - SERUM 0.8 mg/dL (0.6-1.3); GLUCOSE 163 mg/dL (74-106); MAGNESIUM - SERUM 2.4 mg/dL (1.8-2.4); POTASSIUM - SERUM 3.5 mmol/L (3.5-5.1); PROTEIN - SERUM 5.9 g/dL (6.4-8.2); SODIUM 142 mmol/L (136-145); eGFR NON AFRICAN AMERICAN 81 mL/min (90-120)
[2019-01-18 06:22] LABS: CALC OSMOLALITY 288 mosm/kg (275-300); UREA NITROGEN 17 mg/dL (7-18)
--- NOTE | 2019-01-18 07:43 | NUR ---
SHIFT ASSESSMENT COMPLETED. PT AWAKE AND ALERT. FOLLOWS COMMANDS. SEDATION TURNED DOWN FOR WEANING OFF VENT. VENT SETTING ON CPAP MODE AT THIS TIME. CONTINUES ON CLEVIPREX AND NITRO DRIP. WILL WEAN TOLERATED. ASSESSMENT CHARTED IN FLOWSHEET. WILL CONTINUE TO MONITOR.
--- NOTE | 2019-01-18 08:35 | NUR ---
Propofol turned off at this time. Vent on CPAP mode. will continue to monitor.
--- NOTE | 2019-01-18 09:30 | NUR ---
KCL INITIATED AT THIS TIME PER ORDERS.
--- NOTE | 2019-01-18 10:25 | NUR ---
ANNE-MARIE ABDI DC'Suze AT THIS TIME PER ORDERS. PT WAS PLACED ON DROPLET ISOLATION PRECAUTIONS. RULLING OUT MRSA.
--- NOTE | 2019-01-18 11:07 | NUR ---
PT EXTUBATED AT THIS TIME. PLACED ON 6L OF 02 VIA NC.
--- NOTE | 2019-01-18 13:17 | MORECARE ---
CASE MANAGEMENT DISCHARGE SUMMARY PATIENT: CESAR ST UNIT: [id number] ADM DATE: 01/14/19 AGE: 48 : 70 SEX: F ROOM/BED: D[facility] AUTHOR: CECILIA MONK PHYSICIAN: REFERRING PHYSICIAN: SUNSHINE KING MD DATE OF SERVICE: 01/18/19 Discharge Plan Patient Name: CESAR ST Facility: [facility]:[place] : 1970 Planned Disposition: Home Anticipated Discharge Date: 01/23/19 Discharge Date: Expected LOS: 9 Initial Reviewer: [email or web address] Initial Review Date: 01/14/2019 Generated: 01/18/19 2:17 pm Comments DCP- Discharge Planning Updated by [email or web address]: Debora Jones on 01/18/19 12:[address] Patient Name: CESAR ST Admission Status: ER Accout number: [id number] Admission Date: 01-14-2019 : 1970 Admission Diagnosis:ST ELEVATION (STEMI) MYOCARDIAL INFARCTION OF [facility] SITE Attending: SUNSHINE KING Current LOS: 4 Anticipated DC Date: 01-23-2019 Planned Disposition: Home Primary Insurance: MEDICAID [place] Discharge Planning Comments: CM met with patient and her significant other on [place] to complete initial dc planning assessment. CM educated patient on the CM role and verbal consent given by patient to complete assessment. CM verified patient's address, phone number, and emergency contact phone numbers. Patient lives at home with her significant other and reports she was independent in her care prior to admission. At discharge patient plans to return home with her significant other and feels this is a safe discharge. CM discussed availability of home health, rehab services, and medical equipment. Patient denied known discharge needs at this time. Patient reports her significant other Jose Alejandro will transport her home at time of discharge. CM will continue to follow and will assist as needed with dc plans/needs Distribution Center Assistant: Debora Jones RN, [facility] DCPIA - Discharge Planning Initial Assessment Updated by [email or web address]: Debora Jones on 01/18/19 1:13 pm * Is the patient Alert and Oriented? Yes * How many steps to enter\exit or inside your home? none * PCP Dr. Myron Mercedes ([facility]) * Pharmacy [facility] * Preadmission Environment Home with Family * ADLs Independent * Equipment None * List name and contact numbers for known caregivers / representatives who currently or will assist patient after discharge: Marie Burnham - - [phone] Jose Alejandro richard other - [phone] * Verbal permission to speak to the caregivers and representatives has been obtained from the patient. Yes * Community resources currently utilized None * Additional services required to return to the preadmission environment? No * Can the patient safely return to the preadmission environment? Yes * Has this patient been hospitalized within the prior 30 days at any hospital? No Patient Name: CESAR ST Page [id number] at 1317 All edits/amendments must be made on the electronic document DICTATION DATE: 01/18/19 1316 SOFTWARE DEVELOPMENT MANAGER: PEG 01/18/19 1316 RPT#: [id number] DC DATE: STATUS: ADM IN [facility] [address] [place] [address] END OF REPORT
--- NOTE | 2019-01-18 15:53 | NUR ---
Nutrition follow up Reviewed chart Weaning from vent today RD following
[2019-01-19] VITALS (71 sets, daily range): BP systolic 103–166; BP diastolic 43–100
--- NOTE | 2019-01-19 01:54 | NUR ---
PATIENT DANGLED AT BEDSIDE FOR 10MINS. PATIENT TOLERATED WELL AND WITH MINIMAL ASSIST NEEDED. PATIENT BACK TO BED AND NOTED THAT PATIENT IS ON MENSTRAL CYCLE. PATIENT CLEANED AND VENKATESH PAD IN PLACE.
--- NOTE | 2019-01-19 06:45 | NUR ---
ORAL CARE DONE WITH PERIDEX
[2019-01-19 06:46] LABS: HEMOGLOBIN 8.5 g/dL (12-16); MCHC 32.7 g/dL (31.0-37.0); MCV 88.7 fL (80.0-100.0); MEAN PLATELET VOLUME 10.4 fL (7.4-10.4); RBC 2.93 10x6/uL (4.00-5.40); RDW 14.6 % (11.5-14.5); WBC 11.7 10x3/uL (4.8-10.8)
[2019-01-19 07:00] LABS: ALBUMIN 2.4 g/dL (3.4-5.0); ALKALINE PHOSPHATASE 43 U/L (46-116); ALT (SGPT) 46 U/L (10-68); BILIRUBIN - TOTAL 0.68 mg/dL (0.2-1.3); CALC OSMOLALITY 279 mosm/kg (275-300); CALCIUM 7.8 mg/dL (8.5-10.1); CARBON DIOXIDE 26.3 mmol/L (21.0-32.0); CHLORIDE - SERUM 105 mmol/L (98-107); CREATININE - SERUM 0.8 mg/dL (0.6-1.3); GLUCOSE 143 mg/dL (74-106); MAGNESIUM - SERUM 2.2 mg/dL (1.8-2.4); POTASSIUM - SERUM 3.7 mmol/L (3.5-5.1); PROTEIN - SERUM 6.4 g/dL (6.4-8.2); SODIUM 138 mmol/L (136-145); UREA NITROGEN 18 mg/dL (7-18); eGFR NON AFRICAN AMERICAN 81 mL/min (90-120)
--- NOTE | 2019-01-19 07:30 | NUR ---
SHIFT REPORT RECEIVED. PT SITTING UP IN CHAIR. ALERT AND ORIENTED. RATES PAIN 6/10 AT THIS TIME AT INCISION SITE. CT X [address] WITH SCANT AMOUNT OF BLOODY DRAINAGE NOTED. CT TO 20CM SUCTION. SIGRID DRAIN IN PLACE WITH BLOODY DRAINAGE NOTED. TPM WIRES COILED AND SECURED. COMPLETED ASSESSMENT CHARTED IN FLOWSHEET. WILL CONTINUE TO MONITOR. CLOSELY.
--- NOTE | 2019-01-19 08:08 | NUR ---
ERYN DISCONTINUE PER DR WIGGINS. DR. WIGGINS ORDERED PICC LINE TO BE PLACED. PT UP IN CHAIR. MEAL TRAY SET UP. WILL CONTINUE TO MONITOR.
--- NOTE | 2019-01-19 09:11 | NUR ---
PT TRANSFERRED TO ICU ROOM 2308 VIA BED. REPORT GIVEN TO TANIA LÓPEZ. PESONAL BELONGINGS SENT WITH PATIENT INCLUDING CELL PHONE AND GRAPPLE OPERATOR.
--- NOTE | 2019-01-19 09:15 | NUR ---
PT RECIEVED FROM CVICU. WAS TOLD TO KEEP THE PT IN THE BED SO HER CT MAY BE REMOVED. VSS. SEE IV FLOW SHEET AND FSBS. INSULIN RESTARTED PER ORDERS. CALL LIGHT IN REACH. WILLC ONT POC.
--- NOTE | 2019-01-19 09:45 | NUR ---
CT REMOVED PER DR JORDAN ORDERS BY ROBERT LÓPEZ. PT TOLERATED WELL. WILL CONT POC.
--- NOTE | 2019-01-19 11:50 | NUR ---
DR DE DIOS AT THE PTS BEDSIDE.
--- NOTE | 2019-01-19 12:22 | NUR ---
PT ASSISTED OOB AND INTO THE BEDSIDE CHAIR. PT TRANSFERED WELL. PT BLEEDING BETWEEN HER LEGS. SHE STATED THAT SHE IS ON HER PERIOD. FEMININE PRODUCTS PROVIDED FOR THE PT. MEAL TRAY GIVEN TO THE PT. VSS. NITRO TITRATED PER ORDRES. SEE FLOW SHEET. WILL CONT POC.
--- NOTE | 2019-01-19 15:00 | NUR ---
PT OFF NITRO AND CLEVIPREX. VSS. PT DENIES NEEDS AND PAIN AT THIS TIME. CALL LIGHT IN REACH. WILL CONT POC.
--- NOTE | 2019-01-19 19:15 | NUR ---
Received patient sitting up in chair at bedside, assessment completed per flowsheet. Patient AO x4, calm and cooperative. S1/S2 noted NSR on telemetry, rythmic and regular. Breathing is even/unlabored on 3L via NC with O2 sat 99%, lung sounds clear throughout. Miline sternum incision dressing CDI, Substernal Dressing CDI. Chidi drain x1 with small serosanguinous drainage, TPM wires coiled/secure. Abdomen is round/soft with bowel sounds active x4, non-tender. Criticore secured, clear/yellow urine noted. Patient menstruating, small bloody drainage cleaned with pad utilized. All pulses palpable with cap refill < 3 sec, skin warm/dry. Denies pain or other needs at this time, see flowsheet for details. All VSS and will continue to monitor.
--- NOTE | 2019-01-19 20:00 | NUR ---
Patient assisted to bedside commode at request, no BM at this time. Transferred to bed and positioned for comfort, no further needs and will continue to monitor.
--- NOTE | 2019-01-19 20:30 | NUR ---
Vascular environmental services floor tech on unit to place PICC line.
--- NOTE | 2019-01-19 22:20 | NUR ---
PICC placement unsuccessful, removed and dressed. PICC to be placed by IR in AM if still required, will notify physician.
--- NOTE | 2019-01-19 23:10 | NUR ---
Reassessment completed per flowsheet, no changes noted from previous assessment. S1/S2 noted NSR on telemetry, rythmic and regular. Breathing is even/unlabored on 2L via NC with O2 sat 96%, lung sounds clear throughout. Midline sternum/Substernal incision dressing CDI, Chidi x1 with small serosanguinous drainage. All pulses palpable with cap refill < 3 sec, skin warm/dry. Denies pain or other needs at this time, see flowsheet for details. All VSS and will continue to monitor.
[2019-01-20] VITALS (26 sets, daily range): BP systolic 118–154; BP diastolic 58–95
--- NOTE | 2019-01-20 01:10 | NUR ---
Patient resting in bed with eyes open watching TV, no c/o discomfort at this time. No further needs, all VSS and will continue to monitor.
--- NOTE | 2019-01-20 03:10 | NUR ---
Reassessment completed per flowsheet, no changes noted from previous assessment. S1/S2 noted NSR on telemetry, rythmic and regular. Breathing is even/unlabored on 2L via NC with O2 sat 97%, lung sounds clear throughout. Midline sternum/Substernal incision dressing CDI, Substernal dressing changed per protocol. TPM wires coiled, Chidi x1 with scant serous drainage noted. All pulses palpable with cap refill < 3 sec, skin warm/dry. Denies pain or other needs at this time, see flowsheet for details. All VSS and will continue to monitor.
[2019-01-20 03:30] LABS: HEMATOCRIT 26.5 % (36.0-48.0); HEMOGLOBIN 8.6 g/dL (12-16); MCH 28.5 pg (26.0-34.0); MCHC 32.5 g/dL (31.0-37.0); MCV 87.7 fL (80.0-100.0); MEAN PLATELET VOLUME 9.9 fL (7.4-10.4); RBC 3.02 10x6/uL (4.00-5.40); RDW 14.3 % (11.5-14.5)
[2019-01-20 03:39] LABS: WBC 7.8 10x3/uL (4.8-10.8)
[2019-01-20 03:48] LABS: ALBUMIN 2.2 g/dL (3.4-5.0); ALKALINE PHOSPHATASE 46 U/L (46-116); ALT (SGPT) 38 U/L (10-68); BILIRUBIN - TOTAL 0.73 mg/dL (0.2-1.3); CALC OSMOLALITY 279 mosm/kg (275-300); CARBON DIOXIDE 25.1 mmol/L (21.0-32.0); CHLORIDE - SERUM 105 mmol/L (98-107); CREATININE - SERUM 0.7 mg/dL (0.6-1.3); GLUCOSE 157 mg/dL (74-106); POTASSIUM - SERUM 3.7 mmol/L (3.5-5.1); PROTEIN - SERUM 6.1 g/dL (6.4-8.2); SODIUM 138 mmol/L (136-145); UREA NITROGEN 15 mg/dL (7-18); eGFR NON AFRICAN AMERICAN > 90 mL/min (90-120)
--- NOTE | 2019-01-20 07:00 | NUR ---
REC'D REPORT AND RESUMED CARE, AAO, UP IN CHAIR, VSS, DENIES PAIN, ASSESSMENT COMPLETED PER FLOWSHEET, CALL LIGHT IN REACH, NO NEEDS AT THIS TIME
--- NOTE | 2019-01-20 09:00 | NUR ---
MORNING MEDS GIVEN PER IV FLOWSHEET
--- NOTE | 2019-01-20 09:17 | NUR ---
Nutrition follow-up: Pt extubated 01/18/19 Diet advanced to ADA consistent CHO PO intake 50,100,100% of meals 01/19/19 Labs reviewed Wt: 204# RDN following.
--- NOTE | 2019-01-20 11:00 | NUR ---
CONTINUE TO SIT UP IN CHAIR, VSS, C/O IRRITATION FROM RIGHT IJ, REMOVED IJ WITH CATHETER INTACT, GAUZE DRESSING APPLIED, INITIATED RIGHT AC 20G PIV WITH ATTEMPTS X 2, TOLERATED WITHOUT DIFFICULTY
--- NOTE | 2019-01-20 11:45 | NUR ---
LUNCH TRAY TO BEDSIDE, INDEPENDENT WITH SET UP AND EATING
--- NOTE | 2019-01-20 16:00 | NUR ---
UP FROM CHAIR TO BSC, FAILED ATTEMPT TO HAVE BM, BACK TO CHAIR WITH ASSIST, I AND O'S COMPLETED, 120 EMPTIED FROM SIGRID DRAIN
--- NOTE | 2019-01-20 16:30 | NUR ---
CALLED TO ROOM, SIGIRD DRAIN FULL, 120 CC EMPTIED
--- NOTE | 2019-01-20 17:00 | NUR ---
WATCHING TV WITH NO SIGNS OF DISTRESS, VSS, CALL LIGHT IN REACH, NO NEEDS AT THIS TIME
--- NOTE | 2019-01-20 19:00 | NUR ---
SHIFT ASSESSMENT COMPLETE. PT IS SITTING IN CHAIR WATCHING TV. SHE IS A&O X4 WITH NO COMPLAINTS OF PAIN OR DISCOMFORT AT THIS TIME. MIDSTERNAL DRESSING, CDI. SUBSTERNAL DRESSING CDI, SIGRID DRAIN DRAINING SEROSANG FLUID. S1S2 AUDIBLE, HR 88 NSR SHOWING ON MONITOR. RR EVEN AND UNLABORED, RA, CLEAR LUNG SOUNDS HEARD BILAT THROUGHOUT ALL LOBES. ABD SOFT AND NONTENDER TO TOUCH, BS ACTIVE X4. R ARM PIV S/L. RADIAL AND PEDAL PULSES PALP. SHE DENIES ANY NEEDS AT THIS TIME. VSS. WILL CONT WITH POC.
--- NOTE | 2019-01-20 21:00 | NUR ---
FAMILY AT BEDSIDE. PT IS IN GOOD SPIRITS. FAMILY AND PT DENY ANY NEEDS. FSBS 137, NO INSULIN ADMIN PER SLIDING SCALE. CALL LIGHT IN REACH.
--- NOTE | 2019-01-20 22:00 | NUR ---
DR. ÁLVAREZ PAGED D/T GAS PAIN.
--- NOTE | 2019-01-20 22:15 | NUR ---
PRN TUMS GIVEN PER ORDER.
--- NOTE | 2019-01-20 23:00 | NUR ---
NO CHANGES IN PT CONDITION. SEE FLOWSHEET FOR FURTHER DETIALS. VSS. CALL LIGHT IN REACH, BED IN LOWEST POSITION. WILL CONT WITH POC.
[2019-01-21] VITALS (25 sets, daily range): BP systolic 127–155; BP diastolic 73–98
--- NOTE | 2019-01-21 01:00 | NUR ---
PT RESTING PEACEFULLY, VSS. CALL LIGHT IN REACH.
--- NOTE | 2019-01-21 03:00 | NUR ---
REASSESSMENT COMPLETE. PT IS SITTING IN CHAIR AND DENIES ANY NEEDS AT THIS TIME. NO CHANGES FROM PREVIOUS ASSESSMENT. SEE FLOWSHEET FOR FURTHER DETIALS. WILL CONT WITH POC.
--- NOTE | 2019-01-21 05:00 | NUR ---
PT RESTING IN CHAIR. SHE STATED THAT SHE WANTS TO AMBULATE AT 0600. WILL PLAN ON AMBULATING AT THAT TIME. NO FURTHER NEEDS. CALL LIGHT IN REACH.
[2019-01-21 06:51] LABS: HEMATOCRIT 27.5 % (36.0-48.0); MCH 28.8 pg (26.0-34.0); MCHC 32.7 g/dL (31.0-37.0); MCV 87.9 fL (80.0-100.0); MEAN PLATELET VOLUME 10.4 fL (7.4-10.4); RBC 3.13 10x6/uL (4.00-5.40); RDW 14.1 % (11.5-14.5); WBC 6.6 10x3/uL (4.8-10.8)
[2019-01-21 07:07] LABS: ALBUMIN 2.3 g/dL (3.4-5.0); ANION GAP 11.7 mmol/L (8-16); BILIRUBIN - TOTAL 0.57 mg/dL (0.2-1.3); CALCIUM 8.2 mg/dL (8.5-10.1); CARBON DIOXIDE 26.4 mmol/L (21.0-32.0); MAGNESIUM - SERUM 1.8 mg/dL (1.8-2.4); PHOSPHOROUS 3.5 mg/dL (2.5-4.9); POTASSIUM - SERUM 4.1 mmol/L (3.5-5.1); PROTEIN - SERUM 6.7 g/dL (6.4-8.2)
[2019-01-21 07:11] LABS: CREATININE - SERUM 0.9 mg/dL (0.6-1.3)
--- NOTE | 2019-01-21 08:42 | NUR ---
DRESSING CHANGED TO SUBSTERNAL SITE PER DAILY CHANGE PROTOCOL. NO REDNESS OR DRAINAGE NOTED TO SITE. TPM WIRES IN PLACE, BIOPATCH PLACED TO SITE, SIGRID DRAIN IN PLACE, AREA CLEANED AND DRESSING CHANGED PER ORDERS. NO ACUTE DISTRESS NOTED. WILL CONTINUE PLAN OF CAR.E
--- NOTE | 2019-01-21 10:41 | NUR ---
CONTINENT VOID NOTED AT THIS TIME. 500ML APPROX, YELLOW. PT UP IN BED WATCHING TV. NO ACUTE DISTRESS NOTED. WILL CONTINUE PLAN OF CARE.
--- NOTE | 2019-01-21 11:08 | NUR ---
OFFERED TO WALK PT AT THIS TIME. SHE STATED SHE WANTED TO WAIT TO WALK UNTIL AFTER SHE EATS LUNCH. WILL WALK PT AFTER LUNCH.
--- NOTE | 2019-01-21 15:27 | NUR ---
PLACED ON PORTABLE MONITOR AND AMBULATED PATINET A TOTAL OF 64 FEET. PULSE WAS 86 SR, O2 SAT 95% ON ROOM AIR, TOLERATED WELL, NO DISTRESS NOTED. PATIENT CURRENTLY SITTING UP IN CHAIR VISITING WITH DAUGHTER.
--- NOTE | 2019-01-21 18:28 | NUR ---
SIGRID DRAIN DC AT THIS TIME PER DR COOK ORDERS AFTER SUITURES REMOVED. AREA CLEANED WITH IODINE AFTER REMOVAL AND NEW DRESSING APPLIED TO AREA WITH 4X4 AND TAGEDERM. NO DRINAGE NOTED. NO ACUTE DISTRESS NOTED. PT UP IN CHAIR DENIES ANY NEEDS. WILL CONTINUE PLAN OF CARE.
--- NOTE | 2019-01-21 19:05 | NUR ---
SHIFT ASSESSMENT COMPLETE. PT IS UP IN THE CHAIR TALKING ON HER PHONE. SHE IS A&O X4 WITH NO COMPLAINTS OF PAIN OR DISCOMFORT AT THIS TIME. PERRLA, 3 MM, BRISK REACTION TO LIGHT. RR EVEN AND UNLABORED, CLEAR LUNG SOUNDS HEARD BILAT THROUGHOUT ALL LOBES, PT IS ON ROOM AIR. S1S2 AUDIBLE, HR 86 BPM NSR SHOWING ON MONITOR. R JUGULAR DRESSING CDI. MIDSTERNAL AND SUBSTERNAL DRESSING CDI. ABD ROUND AND SOFT, NONTENDER TO TOUCH. BS ACTIVE X4. R LEG HARVEST SITES KRIS, GLUE NOTED, NO DRAINAGE, CDI. RADIAL AND PEDAL PULSES PALP. R FA PIV S/L. RT AT BEDSIDE. IS USE X10, 500 ML INSPIRED, GOOD EFFORT. FLUTTER VALVE X10. NO FURTHER NEEDS AT THIS TIME. VSS. CALL LIGHT IN REACH, WILL CONT TO MONITOR CLOSELY.
--- NOTE | 2019-01-21 21:10 | NUR ---
PT UP TO BSC, GAIT IS STEADY. WARM PRUNE JUICE BROUGHT TO HER PER REQUEST. 650 ML URINE COLLECTED IN BASIN, NO STOOL NOTED. PT IS BACK IN THE CHAIR. PO MEDS GIVEN PER EMAR. NO FURTHER NEEDS. WILL CONT WITH POC.
--- NOTE | 2019-01-21 21:10 | NUR ---
PT REQUESTS TO GIVE HERSELF CHG BATH. ENCOURAGED INDEPENDENCE. LINENS PROVIDED. WILL CONT CLOSE MONITORING.
--- NOTE | 2019-01-21 23:05 | NUR ---
REASSESSMENT COMPLETE. ASSISTED PT TO BED, GAIT STEADY. NO FURTHER CHANGES IN PT CONDITION. SEE FLOWSHEET FOR FURTHER DETIALS. IS USE X10, FLUTTER VALVE X10, GOOD EFFORT, 500-700 ML ON IS. PT STATES SHE FEELS NAUSEOUS, PRN ZOFRAN ADMIN. WILL CONT TO MONITOR CLOSELY.
[2019-01-22] VITALS (24 sets, daily range): BP systolic 121–162; BP diastolic 71–111
--- NOTE | 2019-01-22 01:00 | NUR ---
PT RESTING PEACEFULLY WITH NO SIGNS OF ACUTE DISTRESS NOTED. VSS. WILL CONT TO MONITOR.
--- NOTE | 2019-01-22 03:05 | NUR ---
REASSESSMENT COMPLETE. VSS. NO CHANGES IN PT CONDITION. SEE FLOWSHEET FOR FURTHER DETIALS. IS AND FLUTTER VALVE X10, GOOD EFFORT, 1000 ML. SHE DENIES ANY PAIN OR DISCOMFORT. BED IN LOWEST POSITION. CALL LIGHT IN REACH, WILL CONT WITH POC.
--- NOTE | 2019-01-22 05:05 | NUR ---
REFRESHMENTS BROUGHT TO BEDSIDE. SHE IS ABLE TO REPOSITION HERSELF INDEPENDENTLY. VSS. CALL LIGHT IN REACH, BED IN LOWEST POSITION. WILL CONT WITH POC.
--- NOTE | 2019-01-22 06:00 | NUR ---
SUBSTERNAL DRESSING CHANGE VIA CREW MEMBER PER ORDERS. PT TOLERATED WELL.
--- NOTE | 2019-01-22 07:34 | NUR ---
LYING IN BED WATCHING TV AT THIS TIME. NO ACUTE DISTRESS NOTED. PT ALERT AND ORIENTED. CALL LIGHT IN REACH. PERSONAL ITMES WITHIN REACH. NO ACUTE DISTRESS NOTED. VSS. WILL CONTINUE PLAN OF CARE.
--- NOTE | 2019-01-22 09:32 | NUR ---
PT ATTEMPT AT INCENTIVE SPIROMETER IS UP TO 1000. PT PERFORMS QHR AND STATES SHE WILL DO 10 BREATHS EACH TIME WELL USING FLUTTER AND TURN COUGH, DEEP BREATHE. NO ACUTE DISTRESS NOTED. WILL CONTINUE PLAN OF CARE.
--- NOTE | 2019-01-22 11:05 | NUR ---
UP IN CHAIR BESIDE BED TALKING ON PHONE. DENIES ANY NEEDS. NO ACUTE DISTRESS NOTED. WILL CONTINUE PLAN OF CARE.
--- NOTE | 2019-01-22 13:04 | NUR ---
WALKED 120 FEET WITH NURSE IN UNIT. CARDIAC MONITORS ATTACHED TO PT DURING WALK. NO ACUTE DISTRESS NOTED. NO SOB. PT UP IN CHAIR. DENIES ANY NEEDS. WILL CONTINUE PLAN OF CARE.
--- NOTE | 2019-01-22 13:12 | NUR ---
RT FOREARM IV NOTED LEAKING WHEN ATTEMPTING TO FLUSH, DC, CATHETER TIP INTACT. NEW IV PLACED TO RT FOREARM, 22G, X2 ATTEMPT, FLUSHES WELL.
--- NOTE | 2019-01-22 14:39 | NUR ---
UP IN CHAIR WATCHING TV AT THIS TIME. NO ACUTE DISTRESS NOTED. WILL CONTINUE PLAN OF CARE.
--- NOTE | 2019-01-22 16:40 | NUR ---
UP IN BED WATCHING TV AT THIS TIME. NO ACUTE DISTRESS NOTED. VSS. WILL CONTINUE PLAN OF CARE.
--- NOTE | 2019-01-22 17:31 | NUR ---
NO CHANGE. NO ACUTE DISTRESS NOTED. UP IN BED WATCHING TV. DENIES ANY NEEDS. WILL CONTINUE PLAN OF CARE.
--- NOTE | 2019-01-22 19:00 | NUR ---
REPORT RECEIVED. RECEIVED PATIENT IN BED. AWAKE, ALERT AND ORINTED X 4. SPEECH CLEAR. DENIES PAIN. SHIFT ASSESSMENT COMPLETED PER FLOW SHEET WITH NO ACUTE DISTRESS OBSERVED. MONITORS CONNECTED TO PATIENT WITH ALARMS SET. VSS. CALL LIGHT IN REACH AND ABLE TO UTILIZE TO MAKE NEEDS KNOWN. DROPLET ISOLATION PRECAUTIONS OBSERVED.
--- NOTE | 2019-01-22 21:00 | NUR ---
IN BED. AWAKE AND ALERT. PO MEDS TAKEN WITHOUT DIFF. NO ACUTE DISTRESS OBSERVE. VSS. CALL LIGHT IN REACH
--- NOTE | 2019-01-22 23:00 | NUR ---
REASSESSMENT COMPLETED WITH NO CHANGES OR ACUTE DISTRESS OBSERVED. VSS. SNACK GIVEN. DENIES PAIN. CALL LIGHT IN REACH.
[2019-01-23] VITALS: BP 156/89
[2019-01-23 01:00] VITALS: BP 146/78
--- NOTE | 2019-01-23 01:00 | NUR ---
RESTING WITH EYES CLOSED. ROUSES EASILY. VSS. NO ACUTE DISTRESS OBSERVED. CALL LIGHT IN REACH
[2019-01-23 02:00] VITALS: BP 160/91
[2019-01-23 03:00] VITALS: BP 159/98
--- NOTE | 2019-01-23 03:00 | NUR ---
REASSESSMENT COMPLETED PER FLOW SHEET WITH NO CHANGES OR ACUTE DISTRESS OBSERVED. VSS. CALL LIGHT IN REACH
[2019-01-23 03:54] LABS: BASOPHILS 0.3 % (0-2); EOSINOPHILS 1.3 % (0-7); HEMATOCRIT 25.4 % (36.0-48.0); HEMOGLOBIN 8.3 g/dL (12-16); IMMATURE GRANULOCYTES 1.8 % (0-5); LYMPHOCYTES 33.5 % (15-50); MCH 28.6 pg (26.0-34.0); MCHC 32.7 g/dL (31.0-37.0); MCV 87.6 fL (80.0-100.0); MEAN PLATELET VOLUME 9.3 fL (7.4-10.4); MONOCYTES 12.4 % (2-11); NEUTROPHILS 50.7 % (40-80); PLATELET COUNT 239 10x3/uL (130-400); RDW 13.8 % (11.5-14.5); WBC 7.8 10x3/uL (4.8-10.8)
[2019-01-23 04:00] VITALS: BP 154/92
[2019-01-23 04:03] LABS: ANION GAP 8.9 mmol/L (8-16); CALCIUM 8.5 mg/dL (8.5-10.1); CARBON DIOXIDE 28.1 mmol/L (21.0-32.0); MAGNESIUM - SERUM 1.4 mg/dL (1.8-2.4)
[2019-01-23 04:04] LABS: PHOSPHOROUS 4.7 mg/dL (2.5-4.9)
--- NOTE | 2019-01-23 05:00 | NUR ---
RESTING WITH EYES CLOSED, ROUSES EASILY. VSS. NO ACUTE DISTRESS OBSERVED
[2019-01-23 07:00] VITALS: BP 154/94
--- NOTE | 2019-01-23 07:00 | NUR ---
REC'D RPEORT AND RESUMED CARE, IN BED, AAO, BP154/94, RESP 28, NO DYSPENIA NOTED, OTHER VSS, O2 VIA RA, MIDLINE STERNAL DRESSING CDI, SUBSTERAL DRESSING IN PLACE, C/O OF NAUSEA, ZOFRAN 4MG GIVEN AT 0645, ASSESSMENT COMPLETED PER FLOWSHEET, SELF REPOSITIONS, CALL LIGHT IN REACH, NO NEEDS AT THIS TIME
--- NOTE | 2019-01-23 09:00 | NUR ---
MORNING MEDS GIVEN PER OCT FLOWSHEET
--- NOTE | 2019-01-23 09:15 | NUR ---
OOB TO BSC, LARGE STOOL TO COMMODE, UP TO CHAIR, NO SIGN OF DISTRESS
--- NOTE | 2019-01-23 09:42 | NUR ---
NUTRITION F/U DIABETIC DIET. NURSING REPORTS PT WITH NAUSEA THIS AM. OTHERWISE GOOD INTAKE RECENT MEALS. WILL CONTINUE TO PROVIDE ADA DIET, MONITOR PO INTAKE. RD FOLLOWING
--- NOTE | 2019-01-23 10:20 | NUR ---
DR EDWARDS AT BEDSIDE FOR EVAL
--- NOTE | 2019-01-23 12:00 | NUR ---
FSBS 146, NO INTERVENTION PER S/S, PRAMOD RESTREPO TO CHAIR SIDE
--- NOTE | 2019-01-23 12:42 | MORECARE ---
CASE MANAGEMENT DISCHARGE SUMMARY PATIENT: CESAR ST UNIT: [id number] ADM DATE: 01/14/19 AGE: 48 : 70 SEX: F ROOM/BED: D.2308 AUTHOR: CECILIA MONK PHYSICIAN: REFERRING PHYSICIAN: SUNSHINE KING MD DATE OF SERVICE: 01/23/19 Discharge Plan Patient Name: CESAR ST Facility: [facility]:[place] : 1970 Planned Disposition: Home Anticipated Discharge Date: 01/23/19 Discharge Date: Expected LOS: 9 Initial Reviewer: [email or web address] Initial Review Date: 01/14/2019 Generated: 01/23/19 1:42 pm Comments DCP- Discharge Planning Updated by [email or web address]: Monique Rudolph on 01/23/19 11:[address] CM notified that patient is requesting Home Health but she doesn't have a PCP. Patient will have a follow up apt with Dr. Estrada 02/08/19 @ 0945. Without PCP she can't get Home Health services or House Calls. CM spoke with [facility] office and at this time they are not accepting new Medicaid patients. CM will give patient information for healthy connections for PCP. CM will continue to follow and assist as needed with discharge planning/ needs. DCP- Discharge Planning Updated by [id number]: Debora Jones on 01/18/19 12:[address] Patient Name: CESAR ST Admission Status: ER Accout number: [id number] Admission Date: 01-14-2019 : 1970 Admission Diagnosis:ST ELEVATION (STEMI) MYOCARDIAL INFARCTION OF [facility] SITE Attending: SUNSHINE KING Current LOS: 4 Anticipated DC Date: 01-23-2019 Planned Disposition: Home Primary Insurance: MEDICAID [place] Discharge Planning Comments: CM met with patient and her significant other on Dans to complete initial dc planning assessment. CM educated patient on the CM role and verbal consent given by patient to complete assessment. CM verified patient's address, phone number, and emergency contact phone numbers. Patient lives at home with her significant other and reports she was independent in her care prior to admission. At discharge patient plans to return home with her significant other and feels this is a safe discharge. CM discussed availability of home health, rehab services, and medical equipment. Patient denied known discharge needs at this time. Patient reports her significant other Jose Alejandro will transport her home at time of discharge. CM will continue to follow and will assist as needed with dc plans/needs Side Laster: Debora Jones RN, [facility] DCPIA - Discharge Planning Initial Assessment Updated by [id number]: Debora Jones on 01/18/19 1:13 pm * Is the patient Alert and Oriented? Yes * How many steps to enter\exit or inside your home? none * PCP Dr. Myron Mercedes ([facility]) * Pharm[facility] on [facility] * Preadmission Environment Home with Family * ADLs Independent * Equipment None * List name and contact numbers for known caregivers / representatives who currently or will assist patient after discharge: Marie Tej - [facility] - [phone] Jose Alejandro Herring [facility] - [phone] * Verbal permission to speak to the caregivers and representatives has been obtained from the patient. Yes * Community resources currently utilized None * Additional services required to return to the preadmission environment? No * Can the patient safely return to the preadmission environment? Yes * Has this patient been hospitalized within the prior 30 days at any hospital? No Last DP export: 01/18/19 12:17 pm Patient Name: CESAR ST Page [id number] at 1242 All edits/amendments must be made on the electronic document DICTATION DATE: 01/23/19 124 HALL TENDER: PEG 01/23/19 1241 RPT#: [id number] DC DATE: STATUS: ADM IN [facility] [address] [place] [address] END OF REPORT
[2019-01-23] MEDS ORDERED: AMIODARONE HCL200 MG PO (13:06)
[2019-01-23] MEDS ORDERED: COREG6.25 MG PO (13:09)
[2019-01-23] MEDS ORDERED: LISINOPRIL5 MG PO (13:10)
[2019-01-23] MEDS ORDERED: FUROSEMIDE20 MG PO (13:11)
[2019-01-23] MEDS ORDERED: LASIX40 MG PO (13:12)
[2019-01-23] MEDS ORDERED: K-TAB10 MEQ PO ×2 (13:12→13:13)
[2019-01-23] MEDS ORDERED: PLAVIX75 MG PO (13:14)
[2019-01-23] MEDS ORDERED: PERCOCET 5-3251 TAB PO (13:14)
[2019-01-23] MEDS ORDERED: VIBRAMYCIN 100100 MG PO (13:15)
--- NOTE | 2019-01-23 15:00 | NUR ---
RIGHT FOREARM PIV DC'D WITH CATHETER INTACT, GAUZE BANDAGE APPLIED, TOLERATED WITHOUT DIFFICULTY
--- NOTE | 2019-01-23 16:00 | NUR ---
DC HOME TAKEN TO PERSONAL VEHICHLE VIA WHEEL CHAIR, AAO, DENIES PAIN OR ANY NEEDS A THIS TIME
--- NOTE | 2019-01-24 11:30 | MORECARE ---
CASE MANAGEMENT DISCHARGE SUMMARY PATIENT: CESAR ST UNIT: [id number] ADM DATE: 01/14/19 AGE: 48 : 70 SEX: F ROOM/BED: D.2308 AUTHOR: CECILIA MONK PHYSICIAN: REFERRING PHYSICIAN: SUNSHINE KING MD DATE OF SERVICE: 01/24/19 Discharge Plan Patient Name: CESAR ST Facility: [facility]:[place] : 1970 Planned Disposition: Home Anticipated Discharge Date: 01/23/19 Discharge Date: 01/23/2019 Expected LOS: 9 Initial Reviewer: [email or web address] Initial Review Date: 01/14/2019 Generated: 01/24/19 12:30 pm Comments DCP- Discharge Planning Updated by [id number]: Monique Rudolph on 01/23/19 11:[address] CM notified that patient is requesting Home Health but she doesn't have a PCP. Patient will have a follow up apt with Dr. Estrada 02/08/19 @ 0945. Without PCP she can't get Home Health services or House Calls. CM spoke with [facility] office and at this time they are not accepting new Medicaid patients. CM will give patient information for healthy connections for PCP. CM will continue to follow and assist as needed with discharge planning/ needs. DCP- Discharge Planning Updated by [id number]: Debora Jones on 01/18/19 12:[address] Patient Name: CESAR ST Admission Status: ER Accout number: [id number] Admission Date: 01-14-2019 : 1970 Admission Diagnosis:ST ELEVATION (STEMI) MYOCARDIAL INFARCTION OF [facility] SITE Attending: SUNSHINE KING Current LOS: 4 Anticipated DC Date: 01-23-2019 Planned Disposition: Home Primary Insurance: MEDICAID [place] Discharge Planning Comments: CM met with patient and her significant other on Dans to complete initial dc planning assessment. CM educated patient on the CM role and verbal consent given by patient to complete assessment. CM verified patient's address, phone number, and emergency contact phone numbers. Patient lives at home with her significant other and reports she was independent in her care prior to admission. At discharge patient plans to return home with her significant other and feels this is a safe discharge. CM discussed availability of home health, rehab services, and medical equipment. Patient denied known discharge needs at this time. Patient reports her significant other Jose Alejandro will transport her home at time of discharge. CM will continue to follow and will assist as needed with dc plans/needs Superintendent Recreation: Debora Jones RN, [facility] DCPIA - Discharge Planning Initial Assessment Updated by [email or web address]: Debora Jones on 01/18/19 1:13 pm * Is the patient Alert and Oriented? Yes * How many steps to enter\exit or inside your home? none * PCP Dr. Myron Mercedes ([facility]) * [facility] * Preadmission Environment Home with Family * ADLs Independent * Equipment None * List name and contact numbers for known caregivers / representatives who currently or will assist patient after discharge: Marie Tej - [facility] - [phone] Jose Alejandro Herring Beba richard other - [phone] * Verbal permission to speak to the caregivers and representatives has been obtained from the patient. Yes * Community resources currently utilized None * Additional services required to return to the preadmission environment? No * Can the patient safely return to the preadmission environment? Yes * Has this patient been hospitalized within the prior 30 days at any hospital? No Last DP export: 01/23/19 11:42 a Patient Name: CESAR ST Page [phone] at 1130 All edits/amendments must be made on the electronic document DICTATION DATE: 01/24/191128 FISH WARDEN: PEG 01/24/191128 RPT#: [id number] DC DATE:01/23/19 STATUS: DIS IN [facility] [address] [place] [address] END OF REPORT
--- NOTE | 2019-01-24 17:02 | CN ---
PATIENT NAME:CESAR DEAN MEDICAL RECORD: [id number] : [birth year] LOCATION:CALLIE.2308 ADMIT DATE: 01/14/19 ACCOUNT: [id number] CONSULTING PHYSICIAN: DOREEN DOMÍNGUEZ MD REFERRING PHYSICIAN: SUNSHINE KING MD DATE OF CONSULTATION: 01/14/2019 CONSULT REQUESTING PHYSICIAN: Dr. Salguero REASON FOR CONSULTATION: Vent management, acute respiratory failure. HISTORY OF PRESENT ILLNESS: Ms. Dean is a 48-year-old -[place] female who has a history of coronary artery disease and she has also pulmonary edema, acute respiratory failure and the patient was intubated on May 2018. Last night, the patient presented to the ER with acute chest pain, shortness of breath. The patient was electively intubated in the ER. Now, the patient is orally intubated and the patient has intraaortic balloon pump. The history was taken mainly by reviewing the patient's note as well as talking to the nursing staff and Dr. Salguero. REVIEW OF SYSTEMS: As in history of present illness. PAST MEDICAL HISTORY: 1. Hypertension. 2. Coronary artery disease. 3. Pulmonary edema and acute respiratory failure. 4. Hyperlipidemia. 5. Diabetes mellitus. PAST SURGICAL HISTORY: She has a cardiac catheterization, stent placement and PTCA. ALLERGIES: There are no known drug allergy. MEDICATIONS: She is on heparin drip and all other medication is reviewed. PERSONAL AND SOCIAL HISTORY: She is a nonsmoker, nondrinker. FAMILY HISTORY: Not obtainable. PHYSICAL EXAMINATION: GENERAL: Now, the patient is orally intubated. She is waking by calling. VITAL SIGNS: The blood pressure is 114/73, pulse is 86, respirations 16, temperature 98.4, SPO2 is 100% on assist control, tidal volume of 500, 40% oxygen. HEENT: Conjunctivae are pink. Sclerae nonicteric. NECK: Supple, no JVD. CHEST: There are bilateral crackles. No wheezing. HEART: Rate and rhythm regular, normal sound, no murmur. The intraaortic balloon pump is in. ABDOMEN: Soft, bowel sounds present. No hepatosplenomegaly. RECTAL: Deferred. EXTREMITIES: No cyanosis, no clubbing. There is 1+ pedal edema. CENTRAL NERVOUS SYSTEM: There are no obvious cranial nerve abnormality. The patient is sleepy, but she is awakeable. CONSULT REPORT [id number] CESAR DEAN IMAGING: Chest x-ray; there is flash pulmonary edema and bilateral alveolar infiltrate. OTHER LABORATORY DATA: CBC; the WBC is 14.3, hemoglobin 12.4, hematocrit 39.2, the platelet count is 53. Chemistry; sodium 138, potassium 3.3, chloride 103, bicarbonate is 21.1, BUN is 20, creatinine 1.6. The troponin is 0.05, albumin is 3.3. IMPRESSION: 1. Acute hypoxic respiratory failure secondary to #2. 2. Pulmonary edema, possible underlying pneumonia. 3. Acute myocardial infarction. 4. Cardiogenic shock. 5. Congestive heart failure, systolic dysfunction. The last EF was 40% to 45%. 6. Thrombocytopenia. 7. Leukocytosis. 8. Acute kidney injury, possible acute tubular necrosis secondary to cardiogenic shock. RECOMMENDATION: 1. We will keep the ventilator today, try to start weaning her early in the morning. 2. Intraaortic balloon pump per Dr. Benjamin. 3. Lasix p.r.n. 4. DVT and GI prophylaxis. 5. Empiric Zosyn. 6. Check sputum culture and sensitivity. 7. Follow up labs and chest radiograph. Discussed with RN and RT. 8. Discussed with the family and Dr. Salguero. The critical care time is 1 hour. Thank you for involving me in the care of Ms. Dean. TRANSINT:[id number] Voice Confirmation ID: [id number] DOCUMENT ID: [id number] DOREEN DOMÍNGUEZ MD at 1702 CC: [id number] DICTATION DATE: 01/14/19 1103 PLUMBER ASSISTANT: 01/14/19 1148 DIS IN 01/23/19 [id number] [place] [address]
== END 2019-01-23 16:30 | disposition home or self-care (01) | DRG 233 ==
LOC: D.ER 04:08 → D.CVICU 06:03 → D.ICU 01-19 09:19
PROVIDERS: Family Medicine; Internal Medicine Cardiovascular Disease; Internal Medicine Pulmonary Disease; Thoracic Surgery (Cardiothoracic Vascular Surgery); ADMIT Emergency Medicine; ATTEND Emergency Medicine
PROC: B2111ZZ Fluoroscopy of Multiple Coronary Arteries using Low Osmolar Contrast (ICD-10-PCS; 2019-01-14)
PROC: 5A02210 Assistance with Cardiac Output using Balloon Pump, Continuous (ICD-10-PCS; 2019-01-14)
PROC: 5A1945Z Respiratory Ventilation, 24-96 Consecutive Hours (ICD-10-PCS; 2019-01-14)
PROC: B2151ZZ Fluoroscopy of Left Heart using Low Osmolar Contrast (ICD-10-PCS; 2019-01-14)
PROC: 4A023N7 Measurement of Cardiac Sampling and Pressure, Left Heart, Percutaneous Approach (ICD-10-PCS; 2019-01-14)
PROC: 0BH17EZ Insertion of Endotracheal Airway into Trachea, Via Natural or Artificial Opening (ICD-10-PCS; principal; 2019-01-14 05:36)
PROC: 02100Z9 Bypass Coronary Artery, One Artery from Left Internal Mammary, Open Approach (ICD-10-PCS; 2019-01-16)
PROC: 021109W Bypass Coronary Artery, Two Arteries from Aorta with Autologous Venous Tissue, Open Approach (ICD-10-PCS; 2019-01-16)
PROC: 06BP4ZZ Excision of Right Saphenous Vein, Percutaneous Endoscopic Approach (ICD-10-PCS; 2019-01-16)
PROC: B24BZZ4 Ultrasonography of Heart with Aorta, Transesophageal (ICD-10-PCS; 2019-01-16)
PROC: 5A1221Z Performance of Cardiac Output, Continuous (ICD-10-PCS; 2019-01-16)
PROC: 05HY33Z Insertion of Infusion Device into Upper Vein, Percutaneous Approach (ICD-10-PCS; 2019-01-19)
DX: I21.09 ST elevation (STEMI) myocardial infarction involving other coronary artery of anterior wall (principal); J96.01 Acute respiratory failure with hypoxia; I50.21 Acute systolic (congestive) heart failure; R57.0 Cardiogenic shock; J15.212 Pneumonia due to Methicillin resistant Staphylococcus aureus; N17.9 Acute kidney failure, unspecified; D62 Acute posthemorrhagic anemia; J98.11 Atelectasis; I25.119 Atherosclerotic heart disease of native coronary artery with unspecified angina pectoris; I11.0 Hypertensive heart disease with heart failure; E11.9 Type 2 diabetes mellitus without complications; D72.829 Elevated white blood cell count, unspecified; D69.6 Thrombocytopenia, unspecified; R53.81 Other malaise

== ENCOUNTER 2019-02-04 22:13 | Inpatient (IN) | payer MEDICAID ==
[~2019-02-04] VITALS: Ht 165.1 cm; Wt 79.6 kg
[~2019-02-04 22:13] MED LIST changes: +AMIODARONE HCL200 MG PO; +LASIX40 MG PO; +LISINOPRIL5 MG PO; +PERCOCET 5-3251 TAB PO; +VIBRAMYCIN 100100 MG PO
[2019-02-04 22:34] LABS: HEMATOCRIT 36.6 % (36.0-48.0); HEMOGLOBIN 11.5 g/dL (12-16); MCH 27.9 pg (26.0-34.0); MCHC 31.4 g/dL (31.0-37.0); MCV 88.8 fL (80.0-100.0); MEAN PLATELET VOLUME 9.8 fL (7.4-10.4); RBC 4.12 10x6/uL (4.00-5.40); RDW 14.3 % (11.5-14.5); WBC 9.9 10x3/uL (4.8-10.8)
[2019-02-04 22:35] LABS: PLATELET COUNT 474 10x3/uL (130-400)
[2019-02-04 22:45] VITALS: BP 182/101
--- NOTE | 2019-02-04 22:51 | NUR ---
PROPOFOL STARTED AT 20 MCG/K PER EDP
[2019-02-04 22:58] LABS: ALBUMIN 3.3 g/dL (3.4-5.0); BILIRUBIN - TOTAL 0.67 mg/dL (0.2-1.3); CALCIUM 9.1 mg/dL (8.5-10.1); CARBON DIOXIDE 22.8 mmol/L (21.0-32.0); CREATININE - SERUM 1.4 mg/dL (0.6-1.3); POTASSIUM - SERUM 3.8 mmol/L (3.5-5.1)
[2019-02-04 22:59] LABS: MAGNESIUM - SERUM 1.9 mg/dL (1.8-2.4); TROPONIN-I 0.038 ng/mL (0.000-0.060)
[2019-02-04 22:59] LABS: APPEARANCE CLEAR (CLEAR); BILIRUBIN NEGATIVE (NEGATIVE); COLOR YELLOW (YELLOW); GLUCOSE 100 mg/dL (NEGATIVE); KETONE NEGATIVE (NEGATIVE); NITRITE NEGATIVE (NEGATIVE); PROTEIN TRACE mg/dL (NEGATIVE); SPECIFIC GRAVITY 1.015 (1.005-1.020); UROBILINOGEN NORMAL (NORMAL)
[2019-02-04 23:00] VITALS: BP 120/80
[2019-02-04 23:02] VITALS: BP 120/80
[2019-02-04 23:03] LABS: EOSINOPHILS 1 % (0-7); LYMPHOCYTES 52 % (15-50); MONOCYTES 6 % (2-11); NEUTROPHILS 41 % (40-80); PLATELET ESTIMATE INCREASED; PLATELET MORPHOLOGY NORMAL PLT MORPH
[2019-02-04 23:20] VITALS: BP 88/46
--- NOTE | 2019-02-04 23:20 | NUR ---
advised edp of bp 88/46. new orders given to lower propofol to 10 mcg/kg
[2019-02-04 23:21] VITALS: BP 88/46
[2019-02-04 23:47] VITALS: BP 159/95; BMI 32.3
[2019-02-05] VITALS (29 sets, daily range): BP systolic 90–121; BP diastolic 52–77
--- NOTE | 2019-02-05 | NUR ---
PT ARRIVED FROM ER BY STRETCHER. ASSESSMENT DONE SEE FLOW SHEET VSS. ICU MONITORS IN PLACE ALARMS SET AND VERIFIED. BOYFRIEND AND EXHUSBAND AT BEDSIDE. INCONCLUSIVE HISTORY OBTAINED. UNABLE TO OBTAIN MED REC. DR GAN AND DR KEMP CALLED NO NEW ORDERS RECEIVED. WILL CONTINUE TO MONITOR.
--- NOTE | 2019-02-05 00:15 | NUR ---
UNABLE TO PERFORM SRS DUE TO PT INTUBATED AND SEDATED
--- NOTE | 2019-02-05 05:00 | NUR ---
IO COLLECTED DAILY WEIGHT COLLECTED VSS WILL CONTINUE TO MONITOR.
[2019-02-05 06:50] LABS: BILIRUBIN - TOTAL 0.62 mg/dL (0.2-1.3); CALCIUM 8.5 mg/dL (8.5-10.1); CARBON DIOXIDE 26.6 mmol/L (21.0-32.0); CREATININE - SERUM 1.3 mg/dL (0.6-1.3); MAGNESIUM - SERUM 1.7 mg/dL (1.8-2.4); TROPONIN-I 0.052 ng/mL (0.000-0.060)
[2019-02-05 06:51] LABS: ALBUMIN 2.4 g/dL (3.4-5.0); ANION GAP 11.8 mmol/L (8-16); POTASSIUM - SERUM 4.4 mmol/L (3.5-5.1); PROTEIN - SERUM 6.3 g/dL (6.4-8.2)
[2019-02-05 07:11] LABS: BASOPHILS 0 % (0-2); EOSINOPHILS 0.1 % (0-7); HEMATOCRIT 30.4 % (36.0-48.0); HEMOGLOBIN 9.5 g/dL (12-16); IMMATURE GRANULOCYTES 0.4 % (0-5); MCH 27.4 pg (26.0-34.0); MCHC 31.3 g/dL (31.0-37.0); MCV 87.6 fL (80.0-100.0); MEAN PLATELET VOLUME 9.5 fL (7.4-10.4); MONOCYTES 7.6 % (2-11); NEUTROPHILS 65.9 % (40-80); RBC 3.47 10x6/uL (4.00-5.40); RDW 14.4 % (11.5-14.5); WBC 7.5 10x3/uL (4.8-10.8)
[2019-02-05 07:12] LABS: PLATELET COUNT 358 10x3/uL (130-400)
--- NOTE | 2019-02-05 10:10 | NUR ---
0710-RECIEVED AWAKE AND ALERT-ET IN SITU TO VENT-SETTING PER RT-PT ABLE TO NOD YES AND NO TO QUESTIONS-NOTED SR ON MONITOR-NODS NO WHEN ASKED IF HAVING PAIN BREATH SOUNDS AUDIBLE RALES UPPER AND LOWER-REVIEWED PT PREVIOUS CHART AND NOTED TREATED FOR MRSA SPUTUM 10DAYS PRIOR-EXPLAINED TO PT NEED TO PLACE IN ISOLATION RM PRECAUTION FOR SPREADING AND HOSPITAL POLICY-PT NODDED YES-EXPLAINED RM RIGHT NEXT TO THIS ONE-RT AND 3 RN'S TRANSORTED WITHOUT DIFFICULTYVIA BED -BAGGED BY RT -PLACED TO VENT AND MONITOR -DIPRIVAN INFUSING AT 20MCG-CHAD 4-NO TITRATION OR ADJUSTMENT REQUIRED-VICE PRESIDENT OF SOFTWARE DEVELOPMENT FOR [facility] AT BEDSIDE-INFORMED HOSPITAL ISOLATION POLICY IN EFFECT-ATTEMPTED TO REPOSITION PT AT THIS [id number] TO ORAL CARE MILLER CATH IN PLACE-CLEAR NICOLLE URINE 0750-URINE SENT FOR CAND S- 0850-FAMILY BROUGHT TO BEDSDIE AND REVIEWED ISOLATION POLICY AND NEED FOR ADHERENCE-APPEARED TO UNDERSTAND 0915-DR KEMP AT BEDSIDE-AND SPOKE WITH DAUGHTER AND PARENT OF CURRENT PLAN REQUIRED TO STRESS ISOLATION POLICY WITH DAUGHTER -PARENT IN COMPLIANCE 0930-12 LEAD EKG REPEATED WITH NOTED CHANGE REFLECTIVE OF RESOLUTION/IMPROVEMENT-DIPRIVAN REMAINS 20MCG-CHAD 4
[2019-02-05 12:40] LABS: APTT 29.6 SECONDS (22.8-39.4); INR 1.2 (0.85-1.17); PROTIME 14.6 SECONDS (11.6-15.0)
[2019-02-05 12:42] LABS: D-DIMER-QUANTITATIVE 2.75 ug/mLFEU (0.20-0.54)
[2019-02-05 12:44] LABS: CREATINE KINASE 44 UL (21-215); TROPONIN-I 0.042 ng/mL (0.000-0.060)
[2019-02-05 18:40] LABS: CKMB 0.8 U/L (0.0-3.6); CREATINE KINASE 33 UL (21-215); TROPONIN-I 0.049 ng/mL (0.000-0.060)
--- NOTE | 2019-02-05 19:00 | NUR ---
REPORT RECEIVED, SHIFT ASSESSMENT COMPLETE PER FLOW SHEET, SEDATED ON VENT SETTINGS PER ORDERS/RT, RESTAINTS BILAT WRISTS REPOSITIONED NO SKIN BREAKDOWN NOTED, RT FA PIV 20g INFUSING MEDS PER OCT, LT AC PIV 20g SL, MILLER CATH SECURED, BILAT SCD'S, PT ON DROPLET ISO, PT ABLE TO ANSWER YES NO QUESTIONS WITH MOVEMENT OF HANDS AND HEAD, VSS, PT DENIES PAIN, WILL CONTINUE TO MONITOR
--- NOTE | 2019-02-05 23:00 | NUR ---
REASSESSMENT COMPLETE, NO ACUTE CHANGES NOTED, VSS, REPOSITIONED FOR COMFORT, SEE FLOW SHEET FOR FURTHER.
[2019-02-06] VITALS (24 sets, daily range): BP systolic 92–159; BP diastolic 52–92; Ht 165.1 cm; Wt 79.6 kg
[2019-02-06 01:07] LABS: CKMB 0.9 U/L (0.0-3.6); CREATINE KINASE 37 UL (21-215); TROPONIN-I 0.045 ng/mL (0.000-0.060)
--- NOTE | 2019-02-06 03:00 | NUR ---
REASSESSMENT COMPLETE PER FLOW SHEET, NO ACUTRE CHANGE NOTED, VSS, REPOSITIONED FOR COMFORT, WILL CONTINUE TO ASSESS, SUCTIONING AND CHG BATH AND MILLER CARE, NEW GOWN AND LINEN COMPLETED
[2019-02-06 04:04] LABS: BASOPHILS 0.2 % (0-2); EOSINOPHILS 0.8 % (0-7); HEMATOCRIT 26.9 % (36.0-48.0); HEMOGLOBIN 8.5 g/dL (12-16); IMMATURE GRANULOCYTES 0.6 % (0-5); LYMPHOCYTES 34.5 % (15-50); MCH 27.4 pg (26.0-34.0); MCHC 31.6 g/dL (31.0-37.0); MCV 86.8 fL (80.0-100.0); MEAN PLATELET VOLUME 9.2 fL (7.4-10.4); MONOCYTES 12.7 % (2-11); NEUTROPHILS 51.2 % (40-80); PLATELET COUNT 307 10x3/uL (130-400); RDW 14.4 % (11.5-14.5)
[2019-02-06 04:19] LABS: CALCIUM 8.2 mg/dL (8.5-10.1); CARBON DIOXIDE 27.5 mmol/L (21.0-32.0); CREATININE - SERUM 1.4 mg/dL (0.6-1.3)
[2019-02-06 04:37] LABS: POTASSIUM - SERUM 3.5 mmol/L (3.5-5.1)
--- NOTE | 2019-02-06 07:44 | NUR ---
REPORT RECEVED FROM THE OFF GOING RN. SEE ASSESSMENT IN THE PTS FLOW SHEET. PT SEDATED AND ON THE VENTILATOR. PT SEDATED, BUT FOLLOWS COMMANDS. NO S/SX OF DISTRESS/DISCOMFORT NOTED. 8.0 ETT NOTED 25 AT THE LIP. LFA IV NOTED AND PATENT. NO S/SX OF INFILTRATION NOTED. FC NOTED WITH CLEAR, YELLOW URINE. OLD SURGICAL SCARS TO CHEST NOTED WELL APPROXIMATED AND SHOW NO S/SX OF INFECTION. NOTED. SEE IV FLUIDS IN FLOW SHEET. VSS AT THIS TIME. CALL LIGHT IN REACH. WILL CONT POC.
--- NOTE | 2019-02-06 08:32 | NUR ---
SPOKE WITH DR WIGGINS ABOUT H&H DROP. HE REFERED H&H TO DR ÁLVAREZ. DR ÁLVAREZ PAGED WITH NO ANSWER. DR KEMP PAGED. CHECK GUAIAC.
--- NOTE | 2019-02-06 08:43 | NUR ---
DR TAVERAS THERMOSPRAY OPERATOR FOR DR ÁLVAREZ. DR NITIN CASTRO.
--- NOTE | 2019-02-06 08:59 | NUR ---
SPOKE WITH DR TAVERAS. HE WAS MADE AWARE THAT GUIAIC ORDERS HAVE BEEN PUT IN. SEE ORDERS
--- NOTE | 2019-02-06 09:23 | NUR ---
SPOKE WITH DR DE DIOS. CHANGE VENT SETTINGS TO SIMV RATE OF 10 PS OF 10. WEEN SEDATION. RT NOTIFIED.
--- NOTE | 2019-02-06 09:28 | NUR ---
DR JORDAN NURSE STATED TO NOTIFY DR DE DIOS THAT THEY WANT THE PT BRONCHED TODAY.
--- NOTE | 2019-02-06 09:43 | NUR ---
APTTEMPTED TO CONTACT THE PTS OLDER SISTER GUERLINE Chen VIA TELEPHONE. NO ANSWER. SPOKE WITH THE PTS EMERGENCY CONTACT, SHAWN, AND HE STATED THE PT HAS A YOUNGER SISTER NAMED KIM. HE STATED THAT HE WILL CALL BACK FOR HER NUMBER AND GIVE ME HER NUMBER FOR CONSENT.
--- NOTE | 2019-02-06 10:00 | NUR ---
GUERLINE MAHER CALLED BACK. CONSENTS FOR BLOOD TRANSFUSIONS AND BRONCHOSCOPY GIVEN VIA TELEPHONE. WITTNESSED BY OPAL LÓPEZ.
--- NOTE | 2019-02-06 11:29 | NUR ---
DR DE DIOS AT THE PT'S BEDSIDE DOING BRONCH. PT TOLERATED WELL.
[2019-02-06 13:21] LABS: BASOPHILS 0.2 % (0-2); EOSINOPHILS 0.5 % (0-7); IMMATURE GRANULOCYTES 0.4 % (0-5); LYMPHOCYTES 29.5 % (15-50); MCH 27.1 pg (26.0-34.0); MCV 87.3 fL (80.0-100.0); MEAN PLATELET VOLUME 9.6 fL (7.4-10.4); MONOCYTES 12.3 % (2-11); NEUTROPHILS 57.1 % (40-80); PLATELET COUNT 342 10x3/uL (130-400); RBC 3.32 10x6/uL (4.00-5.40); RDW 14.5 % (11.5-14.5); WBC 5.5 10x3/uL (4.8-10.8)
[2019-02-06 13:28] LABS: PLT FUNCT.(P2Y12) PLAVIX 117 PRU (194-418)
--- NOTE | 2019-02-06 16:15 | NUR ---
PT PASSED EXTUBATION TRIALS. ABG DONE BY RT AND DR DE DIOS NOTIFIED. OK TO EXTUBATE. PT TOLERATED WELL. PLACED ON 4L VIA NC. WILL CONT POC/MONITOR.
--- NOTE | 2019-02-06 16:35 | NUR ---
SPOKE WITH DR WIGGINS ABOUT STARTING THE PTS PO MEDICATION BACK. DR WIGGINS STATED TO PAGE THE PT'S PRIMARY. DR TAVERAS WAS PAGED.
[2019-02-06 17:28] LABS: BASOPHILS 0.2 % (0-2); EOSINOPHILS 0.4 % (0-7); HEMATOCRIT 29.8 % (36.0-48.0); HEMOGLOBIN 9.5 g/dL (12-16); IMMATURE GRANULOCYTES 0.8 % (0-5); LYMPHOCYTES 25.3 % (15-50); MCH 27.2 pg (26.0-34.0); MCHC 31.9 g/dL (31.0-37.0); MCV 85.4 fL (80.0-100.0); MEAN PLATELET VOLUME 9.6 fL (7.4-10.4); NEUTROPHILS 61.3 % (40-80); PLATELET COUNT 321 10x3/uL (130-400); RBC 3.49 10x6/uL (4.00-5.40); RDW 14.3 % (11.5-14.5); WBC 5.3 10x3/uL (4.8-10.8)
--- NOTE | 2019-02-06 17:47 | NUR ---
PT STARTED ON ICE CHIPS AND ADVACED TO PO FLUIDS WITH NO ISSUES.
--- NOTE | 2019-02-06 17:51 | NUR ---
SPOKE WITH DR TAVERAS ABOUT RESTARTING PO MEDS. DR TAVERAS STATED HE WILL SEND HIS PROVISIONING SPECIALIST TO SEE THE PT.
--- NOTE | 2019-02-06 17:59 | MORECARE ---
CASE MANAGEMENT DISCHARGE SUMMARY PATIENT: CESAR TS UNIT: [id number] ADM DATE: 02/04/19 AGE: 48 : 70 SEX: F ROOM/BED: [facility] AUTHOR: CECILIA MONK PHYSICIAN: REFERRING PHYSICIAN: LILLI ÁLVAREZ MD DATE OF SERVICE: 02/06/19 Discharge Plan Patient Name: CESAR ST [facility] [facility] 1970 Planned Disposition: Home Anticipated Discharge Date: Discharge Date: Expected LOS: Initial Reviewer: [email or web address] Initial Review Date: 02/06/2019 Generated: 02/06/19 6:59 pm DCPIA - Discharge Planning Initial Assessment Updated by [email or web address]: Monique Rudolph on 02/06/19 5:58 pm * Is the patient Alert and Oriented? Yes * How many steps to enter\exit or inside your home? * PCP NO PCP * Pharmacy [facility] * Preadmission Environment Home with Family * ADLs Independent * Equipment None * List name and contact numbers for known caregivers / representatives who currently or will assist patient after discharge: Marie Burnham [facility] [phone] Jose Alejandro [facility] - [phone] * Verbal permission to speak to the caregivers and representatives has been obtained from the patient. Yes * Community resources currently utilized None * Additional services required to return to the preadmission environment? No * Can the patient safely return to the preadmission environment? Yes * Has this patient been hospitalized within the prior 30 days at any hospital? Yes Patient Name: CESAR ST Page 55014 at 1759 All edits/amendments must be made on the electronic document DICTATION DATE: 02/06/191758 QUALITY PROCESS ENGINEER: PEG 02/06/191758 RPT#: [id number] DC DATE: STATUS: ADM IN [facility] [address] [place] [address] END OF REPORT
--- NOTE | 2019-02-06 18:06 | MORECARE ---
CASE MANAGEMENT DISCHARGE SUMMARY PATIENT: CESAR ST UNIT: [id number] ADM DATE: 02/04/19 AGE: 48 : 70 SEX: F ROOM/BED: [facility] AUTHOR: LACHO,DOC PHYSICIAN: REFERRING PHYSICIAN: LLILI ÁLVAREZ MD DATE OF SERVICE: 02/06/19 Discharge Plan Patient Name: CESAR ST Facility: [facility]:[place] : 1970 Planned Disposition: Home Anticipated Discharge Date: Discharge Date: Expected LOS: Initial Reviewer: [email or web address] Initial Review Date: 02/06/2019 Generated: 02/06/19 7:06 pm Comments DCP- Discharge Planning Updated by [email or web address]: Monique Rudolph on 02/06/19 5:[address] Patient Name: CESAR ST Admission Status: ER Accout number: [id number] Admission Date: 02-04-2019 : 1970 Admission Diagnosis: Attending: LILLI ÁLVAREZ Current LOS: 2 Anticipated DC Date: Planned Disposition: Home Primary Insurance: MEDICAID [place] Discharge Planning Comments: CM met with patient at bedside after explaining CM role and obtaining verbal consent. Patient lives at home with family and plans to return there upon discharge. Patient feels this would be a safe discharge. CM discussed availability / needs of home health and medical equipment. Patient denies any discharge needs at this time. Patient states she will have family drive her home upon discharge. CM will continue to follow and assist as needed with discharge planning / needs. Body Work Auto Trimmer: Monique Rudolph DCPIA - Discharge Planning Initial Assessment Updated by [email or web address]: Monique Rudolph on 02/06/19 5:58 pm * Is the patient Alert and Oriented? Yes * How many steps to enter\exit or inside your home? * PCP NO PCP * [facility] * Preadmission Environment Home with Family * ADLs Independent * Equipment None * List name and contact numbers for known caregivers / representatives who currently or will assist patient after discharge: Marie Burnham - [facility] - [phone] Jose Alejandro [facility] - [phone] * Verbal permission to speak to the caregivers and representatives has been obtained from the patient. Yes * Community resources currently utilized None * Additional services required to return to the preadmission environment? No * Can the patient safely return to the preadmission environment? Yes * Has this patient been hospitalized within the prior 30 days at any hospital? Yes Last DP export: 02/06/19 4:59 p Patient Name: CESAR ST Page [id number] at 1806 All edits/amendments must be made on the electronic document DICTATION DATE: 02/06/191805 BALER OPERATOR: PEG 02/06/191805 RPT#: [id number] DC DATE: STATUS: ADM IN [facility] [address] [place] [address] END OF REPORT
--- NOTE | 2019-02-06 19:31 | NUR ---
REPORT RECEIVED, SHIFT ASSESSMENT COMPLETED PER FLOW SHEET. AAOX4. 2 L O2 VIA NC, ENCOURAGED COUGH/DEEP BREATHING AND USE OF IS, PULLING 1000 X10 ON IS. SEE FLOW SHEET FOR COMPLETE ASSESSMENT. CALL LIGHT WITHIN REACH.
--- NOTE | 2019-02-06 20:10 | NUR ---
CALL LIGHT ANSWERED, ICE CHIPS PROVIDED PER PATIENT'S REQUEST, DENIES OTHER NEEDS. CALL LIGHT WITHIN REACH.
--- NOTE | 2019-02-06 20:59 | NUR ---
LAB RESULTS NOT AVAILABLE, CALLED AND SPOKE TO LAB PERSONNEL, STATED THEY WILL SEND SOMEONE TO DRAW BLOOD.
--- NOTE | 2019-02-06 21:10 | NUR ---
LAB PERSONNEL AT BEDSIDE FOR BLOOD DRAW.
[2019-02-06 21:32] LABS: BASOPHILS 0.2 % (0-2); EOSINOPHILS 0.4 % (0-7); HEMATOCRIT 29.1 % (36.0-48.0); HEMOGLOBIN 9.2 g/dL (12-16); IMMATURE GRANULOCYTES 0.5 % (0-5); LYMPHOCYTES 29.4 % (15-50); MCHC 31.6 g/dL (31.0-37.0); MCV 85.3 fL (80.0-100.0); MEAN PLATELET VOLUME 9.5 fL (7.4-10.4); MONOCYTES 13.5 % (2-11); PLATELET COUNT 305 10x3/uL (130-400); RBC 3.41 10x6/uL (4.00-5.40); RDW 14.2 % (11.5-14.5); WBC 5.6 10x3/uL (4.8-10.8)
--- NOTE | 2019-02-06 23:01 | NUR ---
REASSESSMENT COMPLETED PER FLOW SHEET, SEE FOR DETAILS. C/O PAIN ON LT FOREARM PIV, SITE TENDER TO TOUCH, D/C'D. RT FOREARM PIV STARTED X3 ATTEMPTS. DENIES OTHER NEEDS. CALL LIGHT WITHIN REACH. WILL CONTINUE TO MONITOR.
[2019-02-07] VITALS (14 sets, daily range): BP systolic 95–151; BP diastolic 66–87
--- NOTE | 2019-02-07 | NUR ---
COMPLETE BED BATH GIVEN, COMPLETE BED LINEN CHANGE PROVIDED, MILLER CARE PROVIDED. DENIES OTHER NEEDS. CALL LIGHT WITHIN REACH.
--- NOTE | 2019-02-07 02:00 | NUR ---
RESTING, NO ACUTE CHANGES NOTED, DENIES NEEDS. CALL LIGHT WITHIN REACH.
--- NOTE | 2019-02-07 03:07 | NUR ---
REASSESSMENT COMPLETED PER FLOW SHEET, SEE FOR DETAILS. NO ACUTE CHANGES NOTED. DENIES NEEDS. CALL LIGHT WITHIN REACH. WILL CONTINUE TO MONITOR.
[2019-02-07 04:50] LABS: BASOPHILS 0.2 % (0-2); HEMATOCRIT 29.1 % (36.0-48.0); HEMOGLOBIN 9.2 g/dL (12-16); IMMATURE GRANULOCYTES 0.4 % (0-5); LYMPHOCYTES 32.8 % (15-50); MCH 27.1 pg (26.0-34.0); MCHC 31.6 g/dL (31.0-37.0); MCV 85.8 fL (80.0-100.0); MEAN PLATELET VOLUME 9.4 fL (7.4-10.4); MONOCYTES 15.4 % (2-11); NEUTROPHILS 50.2 % (40-80); PLATELET COUNT 302 10x3/uL (130-400); RBC 3.39 10x6/uL (4.00-5.40); RDW 14.1 % (11.5-14.5); WBC 4.9 10x3/uL (4.8-10.8)
--- NOTE | 2019-02-07 05:00 | NUR ---
RESTING IN BED, NO ACUTE CHANGES NOTED, DENIES NEEDS, WILL CONTINUE TO MONITOR.
[2019-02-07 05:24] LABS: % SATURATION 8 % (15-55); IRON 26 ug/dl (35-150); TOTAL IRON BIND CAPACITY 307 ug/dl (260-445); UNSAT IRON BIND CAPACITY 281 ug/dl (150-375)
[2019-02-07 05:31] LABS: ALBUMIN 2.8 g/dL (3.4-5.0); BILIRUBIN - TOTAL 0.8 mg/dL (0.2-1.3); CALCIUM 8.5 mg/dL (8.5-10.1); CARBON DIOXIDE 26.9 mmol/L (21.0-32.0); CREATININE - SERUM 1.2 mg/dL (0.6-1.3); MAGNESIUM - SERUM 1.9 mg/dL (1.8-2.4); PHOSPHOROUS 4.2 mg/dL (2.5-4.9); PROTEIN - SERUM 7.3 g/dL (6.4-8.2)
[2019-02-07 05:33] LABS: ANION GAP 12.2 mmol/L (8-16); POTASSIUM - SERUM 3.1 mmol/L (3.5-5.1)
--- NOTE | 2019-02-07 07:00 | NUR ---
REPORT RECIEVED FROM THE OFF GOING RN. SEE ASSESSMENT IN THE PTS FLOW SHEET. PT ASSISTED OOB AND INTO THE BEDSIDE CHAIR. PT ASSISTED OOB WITH NO ISSUES. PT STATED "YOU KNOW IT REALLY MADE ME UPSET AT MY HOUSE. MY FAMILY TREATS ME LIKE IM A CHILD AND WILL NOT LET ME OUT OF THE HOUSE TO GO TO MY HAIR APPOINTMENT. I ONLY WALK TO MY BOYFRINDS TRUCK AND BACK TO MY COUCH. ALSO I ONLY WALK TO THE BATHROM WHEN NEEDED. I ALSO NEED TO WORK ON MY DIET BECUASE I HAVE BEEN EATING TO MUCH SALT". PT EDCATION PROVIDED ABOUT ACTIVITY TOLERANCE AND ABOUT DIET CONSISTING OF LOW SALTS. DR WIGGINS AND DR JORDAN NURSE WILL BE NOTIFIED FOR FURTHER EDUCATION. VSS AT THIS TIME. FC NOTED WITH CLEAR, YELLOW URINE. CALL LIGHT IN REACH. WILL CONT POC.
--- NOTE | 2019-02-07 07:56 | NUR ---
DR WIGGINS AT THE PTS BEDSIDE. EDUCATED ABOUT DIET AND ACTIVITY TOLERANCE.
[2019-02-07 09:17] LABS: HEMATOCRIT 30.8 % (36.0-48.0); HEMOGLOBIN 9.9 g/dL (12-16); LYMPHOCYTES 33.2 % (15-50); MCH 27.8 pg (26.0-34.0); MCHC 32.1 g/dL (31.0-37.0); MCV 86.5 fL (80.0-100.0); MEAN PLATELET VOLUME 9.3 fL (7.4-10.4); NEUTROPHILS 54.8 % (40-80); PLATELET COUNT 331 10x3/uL (130-400); RBC 3.56 10x6/uL (4.00-5.40); RDW 13.7 % (11.5-14.5); WBC 4.2 10x3/uL (4.8-10.8)
--- NOTE | 2019-02-07 09:30 | NUR ---
PT AMBULATED WITH PHYSCIAL THEARPY ABOUT 100 FEET. STEADY GAIT NOTED. VSS. NO COMPLAINTS AT THIS TIME. WILL CONT POC.
--- NOTE | 2019-02-07 12:30 | NUR ---
DR DE DIOS AND DR TAVERAS AT THE PTS BEDSIDE. OK TO TRANSFER TO THE FLOOR.
--- NOTE | 2019-02-07 14:30 | NUR ---
REPORT GIVEN TO MARIMAR LÓPEZ. PT [facility] ACCOUNTED FOR. TRANSFERED IN A STABLE CONDITION.
--- NOTE | 2019-02-07 15:45 | NUR ---
Nutrition follow up Provided pt with education on Low Sodium diet and provided pt with Medical Nutrition Therapy handout on Heart healthy consistent carbohydrate diet. Answered all questions RD following
--- NOTE | 2019-02-07 18:08 | NUR ---
IRON NOT INITIATED NOT AVAILABLE FROM PHARMACY YET. PAGED PHARMACY WILL CONTINUE TO WAIT.
--- NOTE | 2019-02-07 19:08 | NUR ---
WHENEVER CLEANING THE PTS ROOM, I FOUND A PLAVIX IN THE PTS CHAIR. I WENT DOWN TO MED 2 AND ASKED WHY SHE DID NOT TAKE IT, SHE STATED SHE WILL CLOT OFF IF SHE TAKES IT. I EXPLAINED TO HER THAT SHE IS A RESPONDERS TO PLAVIX AND SHE REMAINS TO NON COMPLIENT WITH HER PLAVIX. TWENTY ONE DEALER NURSE NOTIFIED. DR WIGGINS NOTIFIED. HE STATED HE WILL TAKE CARE OF IT TOMORROW.
[2019-02-07 20:06] LABS: ACID FAST SMEAR Negative (()); AFB SPECIMEN PROCESSING Concentration (())
[2019-02-08] VITALS: BP 110/65
[2019-02-08 04:00] VITALS: BP 111/67
--- NOTE | 2019-02-08 04:15 | NUR ---
I have reviewed this patient and I concur with the Shift Assessment completed by the Licensed Practical Nurse today this shift.
[2019-02-08 06:14] LABS: BASOPHILS 0 % (0-2); EOSINOPHILS 1.3 % (0-7); HEMATOCRIT 30.7 % (36.0-48.0); HEMOGLOBIN 9.7 g/dL (12-16); IMMATURE GRANULOCYTES 0.2 % (0-5); LYMPHOCYTES 41.3 % (15-50); MCH 27.1 pg (26.0-34.0); MCHC 31.6 g/dL (31.0-37.0); MCV 85.8 fL (80.0-100.0); MEAN PLATELET VOLUME 9.3 fL (7.4-10.4); MONOCYTES 15.7 % (2-11); NEUTROPHILS 41.5 % (40-80); PLATELET COUNT 279 10x3/uL (130-400); RBC 3.58 10x6/uL (4.00-5.40); RDW 14.1 % (11.5-14.5); WBC 4.7 10x3/uL (4.8-10.8)
[2019-02-08 06:21] LABS: ANION GAP 12.7 mmol/L (8-16); CALCIUM 8.7 mg/dL (8.5-10.1); CARBON DIOXIDE 25.6 mmol/L (21.0-32.0); CREATININE - SERUM 1.2 mg/dL (0.6-1.3); POTASSIUM - SERUM 3.3 mmol/L (3.5-5.1)
--- NOTE | 2019-02-08 08:10 | NUR ---
INITIAL ROUNDING, PATIENT IS AWAKE AND SITTING UP IN BED TALKING ON HER CELL PHONE. SHE DENIES PAIN AND STATES "I FEEL SO GOOD". CALL LIGHT IN REACH. ON ROOM AIR.
[2019-02-08 08:31] VITALS: BP 117/84
[2019-02-08 11:39] VITALS: BP 115/83
[2019-02-08 13:13] LABS: FUNGUS STAIN Final report (())
--- NOTE | 2019-02-08 14:57 | NUR ---
PATIENT RESTING WITH EYES CLOSED, LIGHTS OFF, AND DOOR CLOSED, SHE DID NOT WAKE WITH THE DOOR OPENING FOR ROUNDING. CALL LIGHT IN REACH
[2019-02-08 16:38] VITALS: BP 117/83
--- NOTE | 2019-02-08 17:33 | NUR ---
DR CORDOVA HERE TO SEE THE PATIENT, HE REPORTS HE IS DISCONTINUING HER ISOLATION AT THIS TIME
[2019-02-08 20:00] VITALS: BP 129/85
[2019-02-09] VITALS: BP 124/79
[2019-02-09 04:00] VITALS: BP 125/70
--- NOTE | 2019-02-09 04:24 | NUR ---
I have reviewed this patient and I concur with the Shift Assessment completed by the Licensed Practical Nurse today this shift.
[2019-02-09 06:17] LABS: BASOPHILS 0.2 % (0-2); HEMATOCRIT 31.1 % (36.0-48.0); HEMOGLOBIN 10.1 g/dL (12-16); IMMATURE GRANULOCYTES 0.4 % (0-5); LYMPHOCYTES 45.9 % (15-50); MCH 27.7 pg (26.0-34.0); MCHC 32.5 g/dL (31.0-37.0); MCV 85.2 fL (80.0-100.0); MEAN PLATELET VOLUME 9.4 fL (7.4-10.4); MONOCYTES 17.4 % (2-11); NEUTROPHILS 34.1 % (40-80); PLATELET COUNT 277 10x3/uL (130-400); RBC 3.65 10x6/uL (4.00-5.40); RDW 14.1 % (11.5-14.5); WBC 5.6 10x3/uL (4.8-10.8)
[2019-02-09 06:38] LABS: CARBON DIOXIDE 25.6 mmol/L (21.0-32.0); CREATININE - SERUM 1.4 mg/dL (0.6-1.3); POTASSIUM - SERUM 3.6 mmol/L (3.5-5.1)
[2019-02-09 07:40] VITALS: BP 126/82
--- NOTE | 2019-02-09 07:59 | NUR ---
PATIENT IS AWAKE AND SITTING UP IN BED, SHE HAS BEEN NPO SINCE 0000 AWAITING PROCEDURE. SHE DENIES PAIN, AND ANY NEED AT THIS TIME
[2019-02-09 12:50] VITALS: BP 127/83
[2019-02-09 15:11] VITALS: BP 135/93
[2019-02-09] MEDS ORDERED: BRILINTA90 MG PO (16:58)
[2019-02-09] MEDS ORDERED: ENTRESTO 24 MG1 EACH PO (16:59)
[2019-02-09] MEDS ORDERED: LASIX40 MG PO (17:01)
--- NOTE | 2019-02-10 08:36 | MORECARE ---
CASE MANAGEMENT DISCHARGE SUMMARY PATIENT: CESAR ST UNIT: [id number] ADM DATE: 02/04/19 AGE: 48 : 70 SEX: F ROOM/BED: D.4692 AUTHOR: LACHO,DOC PHYSICIAN: REFERRING PHYSICIAN: LILLI ÁLVAREZ MD DATE OF SERVICE: 02/10/19 Discharge Plan Patient Name: CESAR ST Facility: [facility]:[place] : 1970 Planned Disposition: Home Anticipated Discharge Date: 02/09/19 Discharge Date: 02/09/2019 Expected LOS: 5 Initial Reviewer: [email or web address] Initial Review Date: 02/06/2019 Generated: 02/10/19 9:36 am Comments DCP- Discharge Planning Updated by [email or web address]: Monique Rudolph on 02/06/19 5:[address] Patient Name: CESAR ST Admission Status: ER Accout number: [id number] Admission Date: 02-04-2019 : 1970 Admission Diagnosis: Attending: LILLI ÁLVAREZ Current LOS: 2 Anticipated DC Date: Planned Disposition: Home Primary Insurance: MEDICAID [place] Discharge Planning Comments: CM met with patient at bedside after explaining CM role and obtaining verbal consent. Patient lives at home with family and plans to return there upon discharge. Patient feels this would be a safe discharge. CM discussed availability / needs of home health and medical equipment. Patient denies any discharge needs at this time. Patient states she will have family drive her home upon discharge. CM will continue to follow and assist as needed with discharge planning / needs. Analytics Analyst: Monique Rudolph DCPIA - Discharge Planning Initial Assessment Updated by [email or web address]: Monique Rudolph on 02/06/19 5:58 pm * Is the patient Alert and Oriented? Yes * How many steps to enter\exit or inside your home? * PCP NO PCP * [facility] * Preadmission Environment Home with Family * ADLs Independent * Equipment None * List name and contact numbers for known caregivers / representatives who currently or will assist patient after discharge: Marie Burnham [facility] - [phone] Jose Alejandro [facility] - [phone] * Verbal permission to speak to the caregivers and representatives has been obtained from the patient. Yes * Community resources currently utilized None * Additional services required to return to the preadmission environment? No * Can the patient safely return to the preadmission environment? Yes * Has this patient been hospitalized within the prior 30 days at any hospital? Yes Last DP export: 02/06/19 5:06 p Patient Name: CESAR ST Page 10382 at 0836 All edits/amendments must be made on the electronic document DICTATION DATE: 02/10/1936 TERRAZZO ROLLER: PEG 02/10/19 0836 RPT#: [id number] DC DATE:02/09/19 STATUS: DIS IN [facility] [address] [place] [address] END OF REPORT
[2019-02-10 10:14] LABS: FUNGUS MYCOLOGY CULTURE Preliminary report (())
== END 2019-02-09 18:02 | disposition home or self-care (01) | DRG 208 ==
LOC: D.ER 22:13 → D.M2 23:05 → D.CVICU 23:05 → D.M2 02-07 14:20
PROVIDERS: Family Medicine; Internal Medicine Pulmonary Disease; Thoracic Surgery (Cardiothoracic Vascular Surgery); ADMIT Internal Medicine Nephrology; ATTEND Internal Medicine Nephrology
PROC: 0BH17EZ Insertion of Endotracheal Airway into Trachea, Via Natural or Artificial Opening (ICD-10-PCS; principal; 2019-02-04)
PROC: 5A1945Z Respiratory Ventilation, 24-96 Consecutive Hours (ICD-10-PCS; 2019-02-04)
PROC: 0B9B8ZZ Drainage of Left Lower Lobe Bronchus, Via Natural or Artificial Opening Endoscopic (ICD-10-PCS; 2019-02-06)
PROC: 0B968ZZ Drainage of Right Lower Lobe Bronchus, Via Natural or Artificial Opening Endoscopic (ICD-10-PCS; 2019-02-06)
DX: J96.01 Acute respiratory failure with hypoxia (principal); I50.23 Acute on chronic systolic (congestive) heart failure; N17.9 Acute kidney failure, unspecified; I11.0 Hypertensive heart disease with heart failure; E11.21 Type 2 diabetes mellitus with diabetic nephropathy; E83.42 Hypomagnesemia; D64.9 Anemia, unspecified; I25.5 Ischemic cardiomyopathy; E78.5 Hyperlipidemia, unspecified

== ENCOUNTER 2019-02-17 16:19 | Emergency (ER) | payer MEDICAID ==
[~2019-02-17 16:19] MED LIST changes: +BRILINTA90 MG PO; +ENTRESTO 24 MG1 EACH PO
[2019-02-17] MEDS ORDERED: METOPROLOL TART50 MG PO (16:32)
[2019-02-17 16:34] VITALS: BMI 28.8
[2019-02-17] MEDS ORDERED: PACERONE400 MG PO (16:34)
[2019-02-17 17:37] LABS: APPEARANCE CLEAR (CLEAR); BILIRUBIN NEGATIVE (NEGATIVE); COLOR YELLOW (YELLOW); GLUCOSE NEGATIVE (NEGATIVE); KETONE NEGATIVE (NEGATIVE); NITRITE NEGATIVE (NEGATIVE); PROTEIN NEGATIVE (NEGATIVE); SPECIFIC GRAVITY 1.015 (1.005-1.020); UROBILINOGEN NORMAL (NORMAL)
[2019-02-17 17:38] LABS: BACTERIA FEW /hpf (NONE SEEN); EPITHELIAL CELLS 0-5 /hpf (0-5); RED CELLS - URINE 0-5 /hpf (0-5); WHITE CELLS - URINE 0-5 /hpf (0-5)
[2019-02-17 17:46] LABS: BASOPHILS 0 % (0-2); EOSINOPHILS 0.4 % (0-7); HEMATOCRIT 35.9 % (36.0-48.0); HEMOGLOBIN 11.7 g/dL (12-16); IMMATURE GRANULOCYTES 0.4 % (0-5); LYMPHOCYTES 23.7 % (15-50); MCH 27.3 pg (26.0-34.0); MCHC 32.6 g/dL (31.0-37.0); MCV 83.9 fL (80.0-100.0); MEAN PLATELET VOLUME 10.9 fL (7.4-10.4); MONOCYTES 8.4 % (2-11); NEUTROPHILS 67.1 % (40-80); PLATELET COUNT 268 10x3/uL (130-400); RBC 4.28 10x6/uL (4.00-5.40); RDW 14.9 % (11.5-14.5); WBC 5.7 10x3/uL (4.8-10.8)
[2019-02-17 19:09] LABS: APTT 29.9 SECONDS (22.8-39.4); INR 1.09 (0.85-1.17); PROTIME 13.6 SECONDS (11.6-15.0)
[2019-02-17 19:27] LABS: ALBUMIN 3.3 g/dL (3.4-5.0); ALKALINE PHOSPHATASE 78 U/L (46-116); ALT (SGPT) 25 U/L (10-68); BILIRUBIN - TOTAL 0.66 mg/dL (0.2-1.3); CALC OSMOLALITY 276 mosm/kg (275-300); CALCIUM 9.1 mg/dL (8.5-10.1); CARBON DIOXIDE 25.4 mmol/L (21.0-32.0); CHLORIDE - SERUM 103 mmol/L (98-107); CKMB 0.9 U/L (0.0-3.6); CREATINE KINASE 41 UL (21-215); CREATININE - SERUM 1.5 mg/dL (0.6-1.3); MAGNESIUM - SERUM 1.9 mg/dL (1.8-2.4); POTASSIUM - SERUM 4.2 mmol/L (3.5-5.1); PROTEIN - SERUM 8.5 g/dL (6.4-8.2); SODIUM 136 mmol/L (136-145); THYROID STIMULATING HORMONE 1.98 uIU/mL (0.36-3.74); TROPONIN-I 0.037 ng/mL (0.000-0.060); UREA NITROGEN 17 mg/dL (7-18); eGFR NON AFRICAN AMERICAN 39 mL/min (90-120)
[2019-02-17 19:28] LABS: GLUCOSE 158 mg/dL (74-106)
[2019-02-17 19:55] VITALS: BP 125/78
== END 2019-02-17 19:55 | disposition home or self-care (01) ==
LOC: D.ER 16:19
PROVIDERS: Emergency Medicine
DX: R00.2 Palpitations (principal); Z95.1 Presence of aortocoronary bypass graft; E11.9 Type 2 diabetes mellitus without complications

== ENCOUNTER → 2019-03-09 11:57 | Outpatient (CLI) | payer MEDICAID ==
[2019-02-17 16:34] VITALS: BMI 28.8
[~2019-03-09 11:57] MED LIST changes: +PACERONE400 MG PO
== END | disposition home or self-care (01) ==
LOC: D.HCCARDIO 11:57
PROVIDERS: ATTEND Internal Medicine Cardiovascular Disease
DX: I42.9 Cardiomyopathy, unspecified (principal); I50.9 Heart failure, unspecified; I25.10 Atherosclerotic heart disease of native coronary artery without angina pectoris; I10 Essential (primary) hypertension

== ENCOUNTER → 2019-07-03 10:31 | Outpatient (CLI) | payer MEDICAID | END | disposition home or self-care (01) | LOC: D.HCCECHO 10:31 | PROVIDERS: ATTEND Internal Medicine Cardiovascular Disease | DX: I25.10 Atherosclerotic heart disease of native coronary artery without angina pectoris (principal) ==

== ENCOUNTER 2019-07-24 08:00 | Outpatient (CLI) | payer MEDICAID | END 2019-07-24 23:59 | disposition home or self-care (01) | LOC: D.MAMMO 08:00 | PROVIDERS: ATTEND Nurse Practitioner Acute Care | DX: Z12.31 Encounter for screening mammogram for malignant neoplasm of breast (principal) ==